=== PATIENT | female | born 1940 | race Caucasian/White ===

== ENCOUNTER 2016-10-12 15:13 | Outpatient (CLI) | payer MEDICARE, OTHER | END 2016-10-12 15:14 | disposition home or self-care (01) | DX: S92.531A Displaced fracture of distal phalanx of right lesser toe(s), initial encounter for closed fracture (principal) ==

== ENCOUNTER 2017-01-19 10:49 | Outpatient (CLI) | payer MEDICARE, OTHER ==
--- NOTE | 2017-01-19 13:45 | XRAY Report ---
THREE-VIEW RIGHT FOOT: 01/19/2017 CLINICAL INDICATION: Evaluate healing right fifth toe fracture, pain at right fifth metatarsal base. FINDINGS: AP, lateral, oblique views of the right foot demonstrate no interval healing of the fractu re of the distal phalanx of the fifth toe. No definite bridging callus is appreciated. There is no evidence of fifth metatarsal fracture. Mild osteoarthritic changes are stable. IMPRESSION: NO EVIDENCE OF NEW FRACTURE. NO EVIDENT BRIDGING CALLUS AT THE FRACTURE SITE IN THE DIS BARB PHALANX OF THE FIFTH TOE. JOB #: [id number] EXT JOB #:[id number]
== END 2017-01-19 10:50 | disposition home or self-care (01) ==
LOC: DI 10:49
PROVIDERS: ATTEND Podiatrist
DX: S92.531D Displaced fracture of distal phalanx of right lesser toe(s), subsequent encounter for fracture with routine healing (principal)

== ENCOUNTER 2017-04-22 11:08 | Emergency (ER) | payer MEDICARE, OTHER ==
--- NOTE | 2017-04-22 12:33 | ED Physician Documentation ---
PD HPI SKIN - Stated complaint Stated Complaint: YELLOWJACKET STINGS, BOTH ARMS, BOTH LEGS - Chief complaint Chief Complaint: Wound - History obtained from History obtained from: Patient - History of Present Illness Timing - onset: Today Timing - details: Abrupt onset, Still present (stund by multiple bees with pain at each, with redness and swelling locally at each sting.) Location: Bodywide Quality / character: Itchy, Burning, Discolored (red), Raised Associated symptoms: No: Fever, Myalgias, Facial swelling, Abd pain, N/V/D Contributing factors: Insect bite /sting (about 6-8, accidentally stepped on ground nest) Similar symptoms before: Has not had sx before Recently seen: Not recently seen Review of Systems Constitutional: reports: Myalgias. denies: Fever, Chills Throat: denies: Oral lesions / sores, Sore throat Cardiac: denies: Chest pain / pressure Respiratory: denies: Dyspnea, Cough, Wheezing GI: denies: Nausea, Vomiting PD PAST MEDICAL HISTORY - Past Medical History Past Medical History: Yes Cardiovascular: Murmur, Other Respiratory: None Neuro: Seizure disorder Endocrine/Autoimmune: HyPOthyroidism GI: None : None HEENT: None Psych: Depression Musculoskeletal: None Derm: Eczema, Other - Past Surgical History Past Surgical History: Yes General: EGD Ortho: Spine surgery /[employer]: section, Tubal ligation Neuro: Craniotomy, Other - Present Medications Home Medications: Ambulatory Orders Medication Instructions Recorded Confirmed Levothyroxine [Synthroid] 100 mcg PO QDAC 01/06/13 04/22/17 Verapamil ER [Calan SA] 180 mg PO DAILY 01/06/13 04/22/17 Ibuprofen [Advil Liqui-Gels] 200 mg PO DAILY PRN 02/28/14 04/22/17 Lactobacillus Acidophilus 1 each PO DAILY 02/28/14 04/22/17 [Probiotic] Loratadine [Claritin] 10 mg PO DAILY 02/28/14 04/22/17 Multivitamin with Minerals 1 tab PO DAILY 02/28/14 04/22/17 [Multiple Vitamin] Dexamethasone [Decadron] 4 mg PO DAILY #5 tablet 04/22/17 HYDROmorphone [Dilaudid] 2 mg PO Q4H PRN #10 tablet 04/22/17 Mirtazapine 7.5 mg PO DAILY 04/22/17 04/22/17 Pregabalin [Lyrica] 12.5 mg PO DAILY 04/22/17 04/22/17 - Allergies Allergies/Adverse Reactions: Allergies Allergy/AdvReac Type Severity Reaction Status Date / Time acetaminophen [From Vicodin] Allergy Severe Respiratory Verified 04/22/17 11:19 benzocaine Allergy Severe Respiratory Verified 04/22/17 11:19 carbamazepine [From Tegretol] Allergy Severe Respiratory Verified 04/22/17 11:19 codeine [Codeine] Allergy Severe Respiratory Verified 04/22/17 11:19 ephedrine [Ephedrine] Allergy Severe Respiratory Verified 04/22/17 11:19 hydrocodone bitartrate * Allergy Severe Respiratory Verified 04/22/17 11:19 [From Vicodin] lamotrigine [From Lamictal] Allergy Severe Respiratory Verified 04/22/17 11:19 oxycodone [Oxycodone] Allergy Severe Respiratory Verified 04/22/17 11:19 Penicillins Allergy Severe Respiratory Verified 04/22/17 11:19 Sulfa (Sulfonamide Allergy Severe Respiratory Verified 04/22/17 11:19 Antibiotics) iodine Allergy Rash Verified 04/22/17 11:19 adhesive AdvReac Itching Verified 04/22/17 11:19 lorazepam [From Ativan] AdvReac Hallucinati Verified 04/22/17 11:19 ons - Social History Does the pt smoke?: No Smoking Status: Never smoker Does the pt drink ETOH?: No Does the pt have substance abuse?: No - Immunizations Immunizations are current?: Yes PD ED PE NORMAL - Vitals Vital signs reviewed: Yes - General General: Alert and oriented X 3, Well developed/nourished, Other (appears uncomfortable due to multiple stings. Normal mentation. ) - HEENT HEENT: Pharynx benign, Other (no oral swelling. normal voice and breathing. ) - Neck Neck: Supple, no meningeal sign, No adenopathy - Cardiac Cardiac: RRR, No murmur - Respiratory Respiratory: Clear bilaterally - Abdomen Abdomen: Soft, Non tender - Derm Derm: Normal color, Warm and dry, Other (multiple sting sites each with about 5- 6 cm surrounding area of redness and swelling. ) - Extremities Extremities: No deformity, No edema, No calf tenderness / cord - Neuro Neuro: Alert and oriented X 3, No motor deficit, No sensory deficit, Normal speech Results - Vitals Vitals: Vital Signs - 24 hr 04/22/17 04/22/17 11:13 13:51 Temperature 36.3 C L 36.8 C Heart Rate 91 64 Respiratory 14 18 Rate Blood Pressure 128/74 131/64 H O2 Saturation 100 99 Oxygen O2 Source Room air PD MEDICAL DECISION MAKING - ED course Complexity details: re-evaluated patient, considered differential (local reactions at stings; no general symptoms. ), d/w patient Departure - Departure Disposition: 01 Home, Self Care Clinical Impression: Local reaction to bee sting Qualifiers: Encounter type: initial encounter Injury intent: undetermined intent Qualified Code(s): T63.444A - Toxic effect of venom of bees, undetermined, initial encounter Condition: Stable Record reviewed to determine appropriate education?: Yes Instructions: ED Bite Sting Insect Local Allergic React Follow-Up: Roslyn Figueroa MD [Primary Care Provider] - Prescriptions: Dexamethasone [Decadron] 4 mg PO DAILY #5 tablet HYDROmorphone [Dilaudid] 2 mg PO Q4H PRN #10 tablet PRN Reason: Pain Comments: Drink lots of fluids today. Stay cool as warmth/exerted will increase symptoms today. Ice or cool towels to sting areas can help. Ibuprofen for pains. Add Dilaudid if needed. Benadryl 1-2 every 6 hours if needed for itching. Decadron steroid daily for 3-5 days as bee sting reactions can linger effect for a few days. Discharge Date/Time: 04/22/17 13:52
[2017-04-22] MEDS ORDERED: DEXAMETHASONE 10 MG/ML VIAL PO STA (12:47)
[2017-04-22] MEDS ORDERED: diphenhydrAMINE 25 MG CAPSULE PO STA (12:47)
[2017-04-22] MEDS ORDERED: HYDROmorphone 1 MG/ML SYRINGE IM STA (12:47)
[2017-04-22] MEDS ORDERED: KETOROLAC 60 MG/2 ML VIAL IM STA (12:47)
[2017-04-22] MEDS ORDERED: KETOROLAC 30 MG/ML VIAL ONE (12:59)
[2017-04-22] MEDS ORDERED: diphenhydrAMINE 25 MG CAPSULE PO ONE (12:59)
[2017-04-22] MEDS ORDERED: HYDROmorphone 1 MG/ML SYRINGE ONE (12:59)
[2017-04-22] MEDS ORDERED: CHERRY SYRUP 10 ML UDC PO ONE (13:00)
[2017-04-22] MEDS ORDERED: DEXAMETHASONE 10 MG/ML VIAL ONE (13:00)
[2017-04-22 13:52] VITALS: BP 131/64
== END 2017-04-22 13:52 | disposition home or self-care (01) ==
LOC: ED 11:08
DX: T63.441A Toxic effect of venom of bees, accidental (unintentional), initial encounter (principal)
CPT/HCPCS: 96372; 99283; A9270; J1170

== ENCOUNTER 2017-05-04 13:30 | Outpatient (CLI) | payer MEDICARE, OTHER | END 2017-05-04 13:31 | disposition home or self-care (01) | LOC: LAB.R 13:30 | PROVIDERS: ATTEND Physician Assistant Medical | DX: N39.0 Urinary tract infection, site not specified (principal) | CPT/HCPCS: 87086 ==

== ENCOUNTER 2017-05-31 13:11 | Outpatient (CLI) | payer MEDICARE, OTHER ==
[2017-05-31 12:40] LABS: BASOPHILS # (AUTO) 0.1 10^3/uL (0.0-0.1); BASOPHILS % (AUTO) 1.3 %; EOSINOPHILS # (AUTO) 0.2 10^3/uL (0.0-0.7); EOSINOPHILS % (AUTO) 4.4 %; HGB - HEMOGLOBIN 13.7 g/dL (12.0-16.0); LYMPHOCYTES # (AUTO) 0.9 10^3/uL (1.5-3.5); LYMPHOCYTES % (AUTO) 20.1 %; MEAN CORPUSCULAR HEMOGLOBIN 28.7 pg (27.0-31.0); MEAN CORPUSCULAR HGB CONC 33.5 g/dL (32.0-36.0); MEAN CORPUSCULAR VOLUME 85.8 fL (81.0-99.0); MONOCYTES # (AUTO) 0.4 10^3/uL (0.0-1.0); MONOCYTES % (AUTO) 8.1 %; NEUTROPHILS # (AUTO) 3.1 10^3/uL (1.5-6.6); NEUTROPHILS % (AUTO) 66.1 %; NUCLEATED RED BLOOD CELLS AUTO 0.1 /100WBC; RED BLOOD COUNT 4.77 10^6/uL (4.20-5.40); RED CELL DISTRIBUTION WIDTH 14.2 % (12.0-15.0); UNCORRECTED WHITE BLOOD COUNT 4.7 x10^3/uL; WHITE BLOOD COUNT 4.7 x10^3/uL (4.8-10.8)
[2017-05-31 13:06] LABS: THYROID STIMULATING HORMONE < 0.08 uIU/mL (0.34-5.60)
[2017-05-31 13:16] LABS: ALBUMIN/GLOBULIN RATIO 1.6 (1.0-2.2); BILIRUBIN,TOTAL 0.7 mg/dL (0.2-1.0); BUN - BLOOD UREA NITROGEN 11 mg/dL (6-20); CALCIUM 8.9 mg/dL (8.5-10.3); CARBON DIOXIDE - CO2 25 mmol/L (21-32); CHLORIDE 105 mmol/L (101-111); CHOL/HDL RATIO 3.9 (<4.4); CHOLESTEROL 194 mg/dL; CREATININE 0.9 mg/dL (0.4-1.0); GFR - MDRD 61 (>89); GLUCOSE 93 mg/dL (70-100); HDL CHOLESTEROL 50 mg/dL; LDL/HDL RATIO 2.6 (<4.4); SODIUM 137 mmol/L (135-145); TOTAL PROTEIN 6.9 g/dL (6.7-8.2); TRIGLYCERIDES 76 mg/dL; VLDL CHOLESTEROL 15 mg/dL
== END 2017-05-31 13:12 | disposition home or self-care (01) ==
LOC: LAB.WCP 13:11
PROVIDERS: ATTEND Family Medicine
DX: I49.9 Cardiac arrhythmia, unspecified (principal); K58.9 Irritable bowel syndrome, unspecified; E03.9 Hypothyroidism, unspecified
CPT/HCPCS: 36415; 80053; 80061; 84439; 84443; 85025

== ENCOUNTER 2017-07-11 20:47 | Outpatient (CLI) | payer MEDICARE, OTHER ==
[2017-07-11 19:34] LABS: THYROID STIMULATING HORMONE 6.68 uIU/mL (0.34-5.60)
== END 2017-07-11 20:48 | disposition home or self-care (01) ==
LOC: LAB.WCP 20:47
PROVIDERS: ATTEND Family Medicine
DX: E03.9 Hypothyroidism, unspecified (principal)
CPT/HCPCS: 36415; 84439; 84443

== ENCOUNTER 2017-07-18 14:00 | Outpatient (CLI) | payer MEDICARE, OTHER | END 2017-07-18 14:01 | disposition home or self-care (01) | LOC: LAB.R 14:00 | PROVIDERS: ATTEND Family Medicine | DX: N39.0 Urinary tract infection, site not specified (principal) | CPT/HCPCS: 87077; 87086 ==

== ENCOUNTER 2017-08-11 09:57 | Outpatient (CLI) | payer MEDICARE, OTHER ==
[2017-08-11 13:29] LABS: THYROID STIMULATING HORMONE 1.5 uIU/mL (0.34-5.60)
[2017-08-11 13:31] LABS: FREE T4 (FREE THYROXINE) 0.81 ng/dL (0.58-1.64)
== END 2017-08-11 09:58 | disposition home or self-care (01) ==
LOC: LAB.WCP 09:57
PROVIDERS: ATTEND Family Medicine
DX: E03.9 Hypothyroidism, unspecified (principal)
CPT/HCPCS: 36415; 84439; 84443; 84481

== ENCOUNTER 2017-11-10 15:15 | Outpatient (CLI) | payer MEDICARE, OTHER | END 2017-11-10 15:16 | disposition home or self-care (01) | LOC: LAB.R 15:15 | PROVIDERS: ATTEND Family Medicine | DX: N39.0 Urinary tract infection, site not specified (principal) | CPT/HCPCS: 87086 ==

== ENCOUNTER 2017-11-29 09:33 | Outpatient (CLI) | payer MEDICARE, OTHER ==
--- NOTE | 2017-11-30 15:35 | Mammography Report ---
DIGITAL SCREENING MAMMOGRAM: 11/29/2017 CLINICAL INDICATION: A 77-year-old with family history of breast cancer, history of benign biopsy for screening. COMPARISON: 11/2015, 11/2014, 11/2013, 11/2011, 11/2010, 11/2009. TECHNIQUE: Routine CC and MLO projections were obtained of the breasts. FINDINGS: The breasts demonstrate scattered fibroglandular densities bilaterally. A few punctate, typically benign calcifications are present. No suspicious masses, clustered microcalcifications, or regions of architectural distortion are identified. Post-biopsy changes in the right breast are stable. IMPRESSION: BENIGN FINDINGS. RECOMMENDATION: Routine annual screening unless otherwise clinically indicated. BIRADS CATEGORY 2 - BENIGN FINDINGS. STANDARD QUALIFYING STATEMENTS: 1. This examination was reviewed with the aid of Computer-Aided Detection (CAD). 2. A negative or benign imaging report should not delay biopsy if clinically suspicious findings are present. Consider surgical consultation if warranted. More than 5% of cancers are not identified by imaging. 3. Dense breasts may obscure an underlying neoplasm. TD: 11/30/2017 15:35
== END 2017-11-29 09:34 | disposition home or self-care (01) ==
LOC: DI 09:33
PROVIDERS: ATTEND Family Medicine
DX: Z12.31 Encounter for screening mammogram for malignant neoplasm of breast (principal); Z80.3 Family history of malignant neoplasm of breast
CPT/HCPCS: 77067

== ENCOUNTER 2017-11-29 09:34 | Outpatient (CLI) | payer MEDICARE, OTHER ==
--- NOTE | 2017-11-30 15:37 | DEXA Report ---
DEXA SCAN: 11/29/2017 CLINICAL INDICATION: Postmenopausal osteoporosis. TECHNIQUE: Dual energy x-ray absorptiometry (DXA) was performed on a Balzo system. Regions measured are the AP spine, femoral neck, and, if needed, forearm. COMPARISON: None. In accordance with the International Society for Clinical Densitometry (ISCD) guidelines, data from previous exams may be reanalyzed using current recommendations and techniques. This is done to allow a more accurate basis for comparison with the current study. FINDINGS Data for the lumbar spine is as follows: REGION BMD (g/cm/cm) T-SCORE Z-SCORE L1 0.827 -2.5 -0.8 L2 0.871 -2.7 -1.0 L3 1.045 -1.3 0.4 L4 1.057 -1.2 0.5 L1-L4 0.967 -1.8 0.0 NOTE: All evaluable vertebrae are used for classification. The data for the hip is as follows: REGION BMD (g/cm/cm) T-SCORE Z-SCORE Neck 0.706 -2.4 -0.5 TOTAL 0.671 -2.7 -1.0 NOTE: The femoral neck or total proximal femur, whichever is lowest, is used for classification. IMPRESSION WHO CLASSIFICATION BASED ON THE INTERNATIONAL REFERENCE STANDARD IS OSTEOPOROSIS. FRACTURE RISK IS HIGH. RECOMMENDATION: Patients with diagnosis of osteoporosis or osteopenia should have regular bone mineral density assessment. For those eligible for Medicare, routine testing is allowed once every 2 years. Testing frequency can be increased for patients who have rapidly progressing disease or for those who are receiving medical therapy to restore bone mass. COMMENT World Health Organization (WHO) definitions for osteoporosis and osteopenia: NORMAL BMD: T-score at 1.0 or higher, fracture risk is low. OSTEOPENIA BMD: T-score between 1.0 and -2.5, fracture risk is increased. OSTEOPOROSIS BMD: T-score at 2.5 or lower, fracture risk high. National Osteoporosis Foundation recommends: 1. Obtain adequate dietary calcium (at least 1200 mg per day) and vitamin D (400 -800 international units per day). 2. Participate, as appropriate, in regular weightbearing and muscle- strengthening exercise. 3. Avoid tobacco use and reduce alcohol and caffeine intake. 4. For more detailed information see the website at www.NOF.org. TD: 11/29/2017 13:52 MTDD
== END 2017-11-29 09:35 | disposition home or self-care (01) ==
LOC: DI 09:34
PROVIDERS: ATTEND Family Medicine
DX: M81.0 Age-related osteoporosis without current pathological fracture (principal)
CPT/HCPCS: 77080

== ENCOUNTER 2017-12-27 12:57 | Outpatient (CLI) | payer MEDICARE, OTHER ==
--- NOTE | 2017-12-27 15:09 | CT Report ---
CT CHEST WITHOUT CONTRAST: 12/27/2017 CLINICAL INDICATION: Atypical chest pain. TECHNIQUE: Axial CT images of the chest were obtained without intravenous contrast. COMPARISON: No previous CT is available for comparison. FINDINGS: The heart and great vessels demonstrate atherosclerotic calcifications. No hilar or mediastinal lymphadenopathy is present. There is a noncalcified 4 mm subpleural nodule in the posterolateral left lower lobe. No effusion or pneumothorax is present. Osseous structures demonstrate degenerative changes. Limited evaluation of upper abdominal structures demonstrates normal adrenal glands. IMPRESSION: 4 MM SUBPLEURAL LEFT LOWER LOBE NODULE. NO FURTHER WORKUP IS RECOMMENDED IN THIS LOW RISK PATIENT BY [employer] GUID[employer]INES. CT DOSE REDUCTION STATEMENT In accordance with CT protocol optimization, one or more of the following dose reduction techniques were utilized for this exam: automated exposure control, adjustment of mA and/or KV based on patient size, or use of iterative reconstructive technique. TD: 12/27/2017 15:01
--- NOTE | 2017-12-28 14:28 | CT Preliminary Report ---
Exam: CT CERVICAL SPINE W/O Impression: 1. Changes of previous anterior cervical diskectomy and fusion are demonstrated. Again seen is solid interbody fusion at C5-C6. Changes of ACDF at C4-C5 are new when compared to previous C-spine CT 03/15. However, there does appear to be at least early bony bridging across the C4-C5 disk. 2. Degenerative changes are seen throughout the cervical spine as documented in detail above. 3. There is potentially significant spinal stenosis at C3-C4. In addition, there is significant appea ring spinal stenosis, parasagittally on the right at C4-C5. The possibility of cord impingement at th e C3-C4 and C4-C5 levels cannot be excluded. Consider further assessment with MRI or CT myelography a s clinically warranted. 3. Multilevel bony foraminal stenoses as described. With respect to the right-sided neural foramina t here are relatively severe stenoses at C3-C4 and C4-C5. There could potentially be compromise of exit ing right C4 and/or C5 nerve roots. Recommend clinical correlation for right C4 and/or C5 radiculopat hy. With respect to the left-sided neural foramina there. The relatively severe stenoses at C3-C4, C4-C5 and C6-C7. There could potentially be compromise of exiting left C4, C5 and more C7 nerve roots. Clin ical correlation is required. 4. Noted is a calcification in the retro-dental soft tissues. In addition, there appears to be chondr ocalcinosis at the sternoclavicular joints bilaterally. 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 SITE ID: [id number]
--- NOTE | 2017-12-28 15:07 | CT Report ---
CT CERVICAL SPINE WITHOUT CONTRAST INDICATION: 77-year-old female with neck pain. TECHNIQUE: Helical scan with reconstruction into 2 mm axial images. In addition, sagittal and coronal re-formati ons have been generated. This examination was performed using a bone algorithm. Images are available in bone and soft tissue w indows. In accordance with CT protocol optimization, one or more of the following dose reduction techniques w ere utilized for this exam: automated exposure control, adjustment of mA and/or KV based on patient s ize, or use of iterative reconstructive technique. COMPARISON: 04/03/2009. FINDINGS: Again demonstrated is solid bony union at C5-C6, consistent with the sequela of a remote surgical fus ion. There are changes of anterior discectomy and fusion at C4-C5 that are new when compared to the e xamination from 04/03/2009. However, there does appear to be at least early bony bridging across the disk space (see image 43 of series #8 and image 33 of series #7). The metal fusion hardware appears i ntact. No lucency is identified, surrounding either corpus screw to suggest the possibility of loosen ing or infection. There is a reversal of the normal cervical lordosis, stretching between C2 and C4. In addition, there is minimal anterolisthesis of C2 on C3 and retrolisthesis of C3 on C4, unchanged. Alignment is other holt unremarkable. Again demonstrated are changes of fairly advanced degenerative disk disease with moderate to severe d isk space narrowing at C3-C4, similar to the previous study. In addition, degenerative changes are ag ain seen at the C6-C7 disk with mild to moderate disk space narrowing and anterior and posterior oste ophyte formation, similar to the previous study. The C2-C3 and C7-T1 disk space heights remain preser florencia. Regional bony structures are intact. No lytic or destructive bone lesion has developed. Axial images: C2-C3: No focal disk herniation. Mid sagittal canal diameter is on the order of about 10 mm. No signi ficant-appearing spinal stenosis. Uncovertebral hypertrophy gives rise to mild left foraminal stenosi s. C3-C4: Posterior spondylotic bar indenting the ventral aspect of the thecal sac and reducing the mid sagittal canal diameter to about 7.5 mm. There is little if any CSF surrounding the spinal cord at th e disk level. Uncovertebral hypertrophy gives rise to foraminal narrowing that appears to be moderate to severe bilaterally. This appears to have progressed since the previous examination. C4-C5: Residual, posterior osteophyte on the right gives rise to significant-appearing spinal stenosi s, paracentrally to the right. The possibility of right side cord impingement cannot be excluded. Lar ge uncovertebral osteophytes give rise to very severe foraminal narrowing bilaterally, essentially un changed. C5-C6: No significant spinal stenosis. No significant foraminal narrowing. C6 C7: Posterior central disk osteophyte complex projecting into the spinal canal for about 4 mm. Mas s effect on the ventral aspect of the thecal sac. The mid sagittal canal diameter is reduced to about 8.3 mm. Uncovertebral hypertrophy gives rise to foraminal narrowing that appears to be moderate on t he right and moderate to severe on the left. C7-T1: No obvious disk herniation. No spinal stenosis or significant-appearing foraminal narrowing. T1-T2 and T2-T3: No obvious disk herniation or spinal stenosis. Left-sided degenerative facet arthros is at T2-T3 with associated bony hypertrophy gives rise to mild left T2-T3 foraminal stenosis. For imaging of included upper chest please refer to report for recent chest CT from 12/27/2017. Postsurgical changes are seen intracranially. There is evidence of a previous right-sided craniotomy. An aneurysm clip is identified in the medial aspect of the right middle cranial fossa, consistent wi th the sequela of prior surgical clipping of a right-sided, anterior circulation aneurysm. IMPRESSION: 1. Changes of previous anterior cervical discectomy and fusion are demonstrated. Again seen, is solid interbody fusion at C5-C6. Changes of ACDF at C4-C5 are new when compared to previous C-spine CT . However, there does appear to be at least early bony bridging across the C4-C5 disk. 2. Degenerative changes are seen throughout the cervical spine as documented in detail above. 3. There is potentially significant spinal stenosis at C3-C4. In addition, there is significant-appea ring spinal stenosis, parasagittally on the right at C4-C5. The possibility of cord impingement of th e C3-C4 and C4-C5 levels cannot be excluded. Consider further assessment with MRI or CT myelography a s clinically warranted. 4. Multilevel bony foraminal stenoses as described. With respect to the right-sided neural foramina, there are relatively severe stenoses at C3-C4 and C4-C5. There could potentially be compromise of exi ting right C4 and/or C5 nerve roots. Recommend clinical correlation for right C4 and/or C5 radiculopa thy. With respect to the left-sided neural foramina, there appear to be relatively severe stenoses at C3- C4, C4-C5 and C6-C7. There could potentially be compromise of exiting left C4, C5 and/or C7 nerve ann ts. Clinical correlation is required. 5. Noted is a calcification in the retro-dental soft tissues. In addition, there appears to be chondr ocalcinosis at the sternoclavicular joints bilaterally. 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 Referring Provider Line: [phone] SITE ID: [id number]
== END 2017-12-27 12:58 | disposition home or self-care (01) ==
LOC: DI 12:57
PROVIDERS: ATTEND Family Medicine
DX: R91.1 Solitary pulmonary nodule (principal); M50.30 Other cervical disc degeneration, unspecified cervical region; M48.02 Spinal stenosis, cervical region
CPT/HCPCS: 71250; 72125

== ENCOUNTER 2018-03-05 13:18 | Outpatient (CLI) | payer MEDICARE, OTHER ==
--- NOTE | 2018-03-05 18:40 | XRAY Report ---
Procedure Date: 03/05/2018 Accession Number: [id number] / [id number] Procedure: XR - Cervical Spine w/Flex/Ext CPT Code: FULL RESULT: EXAM: Cervical Spine w/Flex/Ext DATE: 03/05/2018 1:43 PM CLINICAL HISTORY: Cervical stenosis COMPARISON: CT cervical spine 12/27/2017. TECHNIQUE: 4 views. FINDINGS: Relative straightening of the normal cervical curvature. The patient is status post anterior cervical disc fusion with hardware spanning the C4-5 interval and osseous fusion of C5 on C6. There are expected degenerative changes with osteophytosis at C6-7. Bones: The cervical vertebral bodies and posterior elements are well visualized from the skull base through C7-T1. No fractures or bone lesions. Disks: Disc space narrowing at C3-4 and C6-7. Facets: Mild multilevel degenerative changes better characterized on the previous CT. Soft Tissues: Normal. No prevertebral soft tissue swelling. The visualized lung apices are clear. Apparent motion at C7-T1 on flexion/extension views is felt to be at least partially due to technique and within normal limits. IMPRESSION: Spinal fusion hardware in unchanged configuration compared to the CT in December when accounting for differences in technique. RADIA
== END 2018-03-05 13:19 | disposition home or self-care (01) ==
LOC: DI 13:18
PROVIDERS: ATTEND Physician Assistant
DX: M48.02 Spinal stenosis, cervical region (principal)
CPT/HCPCS: 72052

== ENCOUNTER 2018-04-21 08:00 | Outpatient (CLI) | payer MEDICARE, OTHER ==
[2018-04-21 11:01] LABS: H. PYLORIS ANTIGEN STL NEGATIVE (Negative)
== END 2018-04-21 08:01 | disposition home or self-care (01) ==
LOC: LAB.R 08:00
PROVIDERS: ATTEND Family Medicine
DX: R19.7 Diarrhea, unspecified (principal)
CPT/HCPCS: 81599; 82274; 83630; 87045; 87046; 87177; 87209; 87329; 87338; 87493

== ENCOUNTER 2018-07-19 08:41 | Outpatient (CLI) | payer MEDICARE, OTHER ==
--- NOTE | 2018-07-19 11:07 | CT Report ---
Reason: SINUSITIS Procedure Date: 07/19/2018 Accession Number: [id number] / [id number] Procedure: CT - Sinuses CPT Code: FULL RESULT: EXAM: CT SINUS EXAM DATE: 07/19/2018 09:05 AM. HISTORY: Sinusitis. COMPARISONS: CT HEAD W/ CONT 11/25/2012 6:56 PM. TECHNIQUE: Routine multi-axial CT imaging performed through the sinuses. Iodinated IV contrast: None. Reconstructions: Multiplanar reformats. In accordance with CT protocol optimization, one or more of the following dose reduction techniques were utilized for this exam: automated exposure control, adjustment of mA and/or KV based on patient size, or use of iterative reconstructive technique. FINDINGS: RIGHT Frontal: Normal. Ethmoid: Normal. Maxillary: Minimal mucosal thickening. Sphenoid: Normal. Drainage Pathways: The frontal recess, ostiomeatal complex and sphenoethmoidal recess are patent and normal. LEFT Frontal: Normal. Ethmoid: Normal. Maxillary: Normal. Sphenoid: Normal. Drainage Pathways: The frontal recess, ostiomeatal complex and sphenoethmoidal recess are patent and normal. Nasal Cavity: Normal. No mass or significant anatomic abnormality evident. Osseous Structures: The patient is status post right frontal approach craniotomy. Orbits: Unremarkable. Other: An aneurysm clip is seen near the carotid summit on the right. IMPRESSION: Essentially normal CT sinus with minimal mucosal thickening. RADIA
== END 2018-07-19 08:42 | disposition home or self-care (01) ==
LOC: DI 08:41
PROVIDERS: ATTEND Family Medicine
DX: J32.8 Other chronic sinusitis (principal)
CPT/HCPCS: 70486

== ENCOUNTER 2018-07-28 13:41 | Outpatient (CLI) | payer MEDICARE, OTHER ==
--- NOTE | 2018-07-28 23:04 | Ultrasound Report ---
Reason: PELVIC PAIN Procedure Date: 07/28/2018 Accession Number: [id number] / [id number] Procedure: US - Pelvic w/Transvaginal CPT Code: FULL RESULT: EXAM: PELVIC ULTRASOUND EXAM DATE: 07/28/2018 02:38 PM. CLINICAL HISTORY: PELVIC PAIN. COMPARISON: None. TECHNIQUE: Realtime transabdominal pelvic scan performed to identify the uterus and adnexa and as an overview of other pelvic structures, followed by transvaginal scan to provide greater detail of the uterus and adnexa, with static image documentation. FINDINGS: Uterus: 4.6 x 2.3 x 3.6 cm, volume 20 cc. Anteverted position. Normal overall size and echotexture. Masses: None. Endometrium: 2 mm. Normal. Cervix: Unremarkable. Right Ovary: 1.9 x 1.5 x 0.9 cm, volume 1.3 cc. Normal echotexture and blood flow. Left Ovary: Not seen. No suspicious adnexal masses. Free Fluid: None. Other: None. IMPRESSION: 1. Uterus and endometrium are within normal limits. 2. The right ovary is normal in size, echotexture, and vascularity. 3. The left ovary is not seen. 4. No suspicious adnexal masses. RADIA
== END 2018-07-28 13:42 | disposition home or self-care (01) ==
LOC: DI 13:41
PROVIDERS: ATTEND Family Medicine
DX: R10.2 Pelvic and perineal pain (principal)
CPT/HCPCS: 76830; 76856

== ENCOUNTER 2018-07-30 10:36 | Outpatient (CLI) | payer MEDICARE, OTHER | END 2018-07-30 23:59 | disposition home or self-care (01) | LOC: LAB.WCP 10:36 | PROVIDERS: ATTEND Family Medicine | DX: R19.7 Diarrhea, unspecified (principal); E03.9 Hypothyroidism, unspecified | CPT/HCPCS: 36415; 83516; 84443 ==

== ENCOUNTER 2018-08-06 08:00 | Outpatient (CLI) | payer MEDICARE, OTHER ==
[2018-08-06 18:08] LABS: BILIRUBIN,URINE NEGATIVE (NEGATIVE); GLUCOSE, URINE (UA) NEGATIVE (NEGATIVE); KETONES,URINE (UA) NEGATIVE (NEGATIVE); LEUKOCYTE ESTERASE, URINE NEGATIVE (NEGATIVE); NITRITE,URINE POSITIVE (NEGATIVE); OCCULT BLOOD,URINE NEGATIVE (NEGATIVE); PH,URINE 5.5 PH (5.0-7.5); PROTEIN,URINE TRACE mg/dL (NEGATIVE); UROBILINOGEN,URINE 0.2 (NORMAL) E.U./dL (NORMAL)
[2018-08-06 18:16] LABS: CLARITY,URINE CLOUDY (CLEAR)
[2018-08-06 18:18] LABS: AMORPHOUS SEDIMENT,UR Marked /LPF; BACTERIA,URINE None Seen /HPF (None Seen); RBC,URINE None Seen /HPF (0-5); SQUAMOUS EPITHELIAL CELL,UR NONE SEEN (<= Few)
[2018-08-06 18:19] LABS: CRYSTALS,URINE 11-25 Ca Oxalate /LPF
== END 2018-08-06 23:59 | disposition home or self-care (01) ==
LOC: LAB.R 08:00
PROVIDERS: ATTEND Family Medicine
DX: R30.0 Dysuria (principal)
CPT/HCPCS: 81001; 81003; 87086

== ENCOUNTER 2018-08-13 09:00 | Outpatient (CLI) | payer MEDICARE, OTHER | END 2018-08-13 09:01 | disposition home or self-care (01) | LOC: LAB.R 09:00 | PROVIDERS: ATTEND Family Medicine | DX: N39.0 Urinary tract infection, site not specified (principal) | CPT/HCPCS: 87086 ==

== ENCOUNTER 2018-09-01 08:43 | Outpatient (CLI) | payer MEDICARE, OTHER ==
--- NOTE | 2018-09-01 16:07 | CT Report ---
Reason: HEMATURIA, PELVIC PAIN, RIGHT (KIDNEY STONES) Procedure Date: 09/01/2018 Accession Number: [id number] / [id number] Procedure: CT - Abdomen/Pelvis W/O CPT Code: FULL RESULT: EXAM: CT ABDOMEN AND PELVIS (CT KUB) EXAM DATE: 09/01/2018 09:02 AM. CLINICAL HISTORY: Hematuria, pelvic pain, right (kidney stones). COMPARISONS: Abdomen/pelvis angiogram 09/08/2014 2:40 PM. TECHNIQUE: Routine axial helical CT imaging was performed through the abdomen and pelvis without IV contrast. Reconstructions: Coronal and sagittal. In accordance with CT protocol optimization, one or more of the following dose reduction techniques were utilized for this exam: automated exposure control, adjustment of mA and/or KV based on patient size, or use of iterative reconstructive technique. FINDINGS: Lung Bases: Unremarkable. Right Kidney/Ureter: No stones, hydronephrosis, or hydroureter. No perinephric fat stranding. Left Kidney/Ureter: Interval enlargement of a 1.9 cm diameter partially exophytic low-attenuation lesion in the posterior left upper kidney. This was previously a 1.3 cm simple appearing cyst on the prior. No hydronephrosis. No calcified renal or ureteral stone. Other Solid Organs: Noncontrast images of the solid organs are grossly unremarkable. Gallbladder/Bile Ducts: Unremarkable. Peritoneal Cavity: No free fluid, free air or kal adenopathy. Bowel is grossly unremarkable. Pelvic Organs: No bladder stones or wall thickening. Noncontrast images of the visualized pelvic organs are unremarkable. Vasculature: 1.3 cm rim calcified splenic artery aneurysm, unchanged from prior. Moderate aortic and splenic artery atherosclerosis. Other: Bilateral calcified hamstring tendinopathy. IMPRESSION: 1. No renal or ureteral calculi or hydronephrosis. 2. Previous 1.3 cm posterior left upper renal cyst has enlarged with a 1.9 cm low-attenuation cystic lesion noted on noncontrast CT on the current study. 3. Stable splenic artery aneurysm. RADIA
== END 2018-09-01 08:44 | disposition home or self-care (01) ==
LOC: DI 08:43
PROVIDERS: ATTEND Family Medicine
DX: Q61.9 Cystic kidney disease, unspecified (principal); I72.8 Aneurysm of other specified arteries; R31.9 Hematuria, unspecified; R10.2 Pelvic and perineal pain
CPT/HCPCS: 74176

== ENCOUNTER 2018-09-16 14:42 | Outpatient (CLI) | payer MEDICARE, OTHER ==
--- NOTE | 2018-09-16 15:53 | Ultrasound Report ---
Reason: RENAL CYST,LEFT Procedure Date: 09/16/2018 Accession Number: [id number] / [id number] Procedure: US - Retroperitoneal CPT Code: FULL RESULT: EXAM: RENAL ULTRASOUND EXAM DATE: 09/16/2018 02:57 PM. CLINICAL HISTORY: RENAL CYST,LEFT. COMPARISON: ABDOMEN/PELVIS W/O 09/01/2018 8:52 AM. TECHNIQUE: Real-time scanning was performed with static images obtained. FINDINGS: Right Kidney: 9.1 x 4.4 x 4.5 cm. Normal echotexture with no stones, contour-deforming masses, or hydronephrosis. Left Kidney: 9.3 x 4.4 x 5.6 cm. No hydronephrosis or nephrolithiasis. There is a simple appearing cyst in the upper pole measuring 1.5 x 2.5 x 1.6 cm. This cyst is anechoic with a thin, imperceptible wall and posterior acoustic through transmission. No internal vascularity or septations. Bladder: Bilateral jets seen. The prevoid bladder volume was 6.7 cc. The postvoid bladder volume was 0.4 cc. Other: None. IMPRESSION: Simple left renal cyst, as described. No evidence of obstructive uropathy. RADIA
== END 2018-09-16 14:43 | disposition home or self-care (01) ==
LOC: DI 14:42
PROVIDERS: ATTEND Family Medicine
DX: N28.1 Cyst of kidney, acquired (principal)
CPT/HCPCS: 76770

== ENCOUNTER 2018-10-31 11:25 | Outpatient (CLI) | payer MEDICARE, OTHER ==
[2018-10-31 11:48] LABS: CALCIUM 9.2 mg/dL (8.5-10.3); CREATININE 0.8 mg/dL (0.4-1.0)
[2018-10-31] MEDS ORDERED: IOPAMIDOL-300 100 ML VIAL ONE (12:00)
[2018-10-31] MEDS ORDERED: IOPAMIDOL-300 100 ML VIAL IVP ONE (12:18)
--- NOTE | 2018-10-31 16:31 | CT Report ---
Reason: HEMATURIA, UNSPECIFIED Procedure Date: 10/31/2018 Accession Number: [id number] / [id number] Procedure: CT - IVP CPT Code: FULL RESULT: EXAM: CT ABDOMEN AND PELVIS WITHOUT AND WITH CONTRAST (CT IVP) EXAM DATE: 10/31/2018 12:39 PM. CLINICAL HISTORY: Hematuria, unspecified. COMPARISONS: ABDOMEN/PELVIS W/O 09/01/2018 8:52 AM ABDOMEN/PELVIS ANGIO 09/08/2014 2:40 PM. TECHNIQUE: Routine helical imaging was performed through the kidneys, ureters and bladder in the precontrast, postcontrast and delayed phase. IV Contrast: ISOVUE 300 100mL. Reconstructions: Coronal and sagittal. In accordance with CT protocol optimization, one or more of the following dose reduction techniques were utilized for this exam: automated exposure control, adjustment of mA and/or KV based on patient size, or use of iterative reconstructive technique. FINDINGS: Lung Bases: Unremarkable. Liver: Normal. No masses. Gallbladder/Bile Ducts: Unremarkable. Spleen: Normal. 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 Pancreas: Normal. Adrenal Glands: Normal. Kidneys/Bladder: Right Kidney/Ureter: No renal or ureteral stones. No hydronephrosis or hydroureter. No masses. Left Kidney/Ureter: No renal or ureteral stones. No hydronephrosis or hydroureter. No masses. 2.5 cm water density simple appearing cyst of the upper pole kidney. Subcentimeter hypodensity of the lower pole, too small to characterize but unchanged since 2014 likely additional cyst. Bladder: No stones. No wall thickening or mass. Peritoneal Cavity/Bowel: Normal. No free fluid, free air or adenopathy. No masses or acute inflammatory process. Pelvic Organs: Visualized pelvic organs are unremarkable. Vasculature: Stable 1.5 cm splenic artery aneurysm. Bones: No significant abnormality. Other: None. IMPRESSION: 1. Normal CT IVP. No urinary tract masses, stones or obstruction. No etiology for hematuria identified. 2. 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 3. 2.5 cm simple cyst left upper pole kidney. Stable subcentimeter lower pole hypodensity, likely additional cyst. RADIA
== END 2018-10-31 11:26 | disposition home or self-care (01) ==
LOC: DI 11:25
PROVIDERS: ATTEND Specialist
DX: R31.9 Hematuria, unspecified (principal); R39.9 Unspecified symptoms and signs involving the genitourinary system; I72.8 Aneurysm of other specified arteries; N28.1 Cyst of kidney, acquired
CPT/HCPCS: 36415; 74178; 80048; Q9967

== ENCOUNTER 2019-01-25 08:40 | Outpatient (CLI) | payer MEDICARE, OTHER ==
--- NOTE | 2019-01-25 10:02 | XRAY Report ---
Reason: wrist pain,right Procedure Date: 01/25/2019 Accession Number: [id number] / [id number] Procedure: XRN - Wrist 3 View RT CPT Code: FULL RESULT: EXAM: RIGHT WRIST RADIOGRAPHY EXAM DATE: 01/25/2019 09:05 AM. CLINICAL HISTORY: Wrist pain,right. COMPARISON: FINGER(S) RT 07/31/2017 1:47 PM. TECHNIQUE: 3 views. FINDINGS: Bones: Normal. No fractures or bone lesions. Joints: Normal. No subluxations. Soft Tissues: Normal. No soft tissue swelling. IMPRESSION: Normal wrist radiography. RADIA
== END 2019-01-25 08:41 | disposition home or self-care (01) ==
LOC: DI.N 08:40
PROVIDERS: ATTEND Family Medicine
DX: M25.531 Pain in right wrist (principal)

== ENCOUNTER 2019-01-29 15:51 | Outpatient (CLI) | payer MEDICARE, OTHER ==
--- NOTE | 2019-01-29 19:08 | Ultrasound Report ---
Reason: SWELLING OF RIGHT ARM, WRIST PAIN,RIGHT Procedure Date: 01/29/2019 Accession Number: [id number] / [id number] Procedure: US - Duplex Upr Ext Arterial RT CPT Code: FULL RESULT: EXAM: RIGHT UPPER EXTREMITY ARTERIAL DOPPLER ULTRASOUND EXAM DATE: 01/29/2019 04:41 PM. CLINICAL HISTORY: Swelling of right arm, wrist pain, right. COMPARISON: None. TECHNIQUE: Real-time sonographic vascular imaging was performed by the radiology technologist, utilizing color-flow, Doppler flow, and spectral analysis. Multiple registration representative static images were saved for review. FINDINGS: Right Upper Extremity Velocities: Innominate: 69 cm/s. Subclavian prox: 133 cm/s. Subclavian mid: 72 cm/s. Subclavian distal: 57 cm/s. Axillary: 62 cm/s. Brachial prox: 75 cm/s. Brachial dist: 84 cm/s. Radial prox: 42 cm/s. Radial distal: 56 cm/s. Ulnar prox: 44 cm/s Ulnar dist: 47 cm/s. IMPRESSION: No evidence for hemodynamically significant stenosis or occlusion. RAD[facility]
--- NOTE | 2019-01-29 19:13 | Ultrasound Report ---
Reason: SWELLING OF RIGHT ARM, WRIST PAIN,RIGHT Procedure Date: 01/29/2019 Accession Number: [id number] / [id number] Procedure: US - Duplex Ext Veins Right CPT Code: FULL RESULT: EXAM: RIGHT UPPER EXTREMITY VENOUS ULTRASOUND EXAM DATE: 01/29/2019 05:11 PM. CLINICAL HISTORY: SWELLING OF RIGHT ARM, WRIST PAIN, RIGHT. COMPARISON: None. TECHNIQUE: Real-time sonographic vascular imaging was performed by the assistant winemaker through the upper extremity utilizing both color-flow and Doppler spectral analysis. Multiple school admissions representative static images were saved for review. FINDINGS: Internal Jugular Vein (IJV): Normal. Subclavian Vein (SCV): Normal. Axillary Vein : Normal. Cephalic Vein (superficial vein): Normal. Basilic Vein (superficial vein): Normal. Brachial Vein: Normal. IMPRESSION: No evidence for deep vein thrombosis. RAD[facility]
== END 2019-01-29 15:52 | disposition home or self-care (01) ==
LOC: DI 15:51
PROVIDERS: ATTEND Family Medicine
DX: M79.89 Other specified soft tissue disorders (principal); M25.531 Pain in right wrist

== ENCOUNTER 2019-04-02 19:25 | Emergency (ER) | payer MEDICARE, OTHER ==
--- NOTE | 2019-04-02 20:21 | ED Physician Documentation ---
PD HPI CHEST PAIN - Stated complaint Stated Complaint: CHEST PX - Chief complaint Chief Complaint: Cardiac - History obtained from History obtained from: Patient - History of Present Illness Timing - onset: How many weeks ago (1) Timing - onset during: Rest, Eating (at night after eating, happens every night) Timing - duration: Hours Timing - details: Abrupt onset, Waxing and waning (then resolves with time) Quality: Aching, Indigestion (in the center of her chest) Location: Substernal Radiation: Neck Improved by: Nothing Worsened by: Other (unknown, possibly with eating) Associated symptoms: No: Shortness of air, Diaphoresis, Nausea, Vomiting, Feeling faint / dizzy, General Weakness, Palpitations, Cough Recently seen: Surgery (s/p Cervical spine fusion on february 12 with resulting cord edema and inability to swallow, pt had extended hospital stay in [place] and ended up with a G tube) - Treatment prior to arrival Treatment prior to arrival: takes pepcid twice daily Review of Systems Ten Systems: 10 systems reviewed and negative Constitutional: denies: Fever Throat: reports: Reviewed and negative Cardiac: reports: Chest pain / pressure. denies: Palpitations, Pedal edema, Calf pain Respiratory: denies: Dyspnea, Cough GI: reports: Nausea. 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, Tubal ligation Neuro: Craniotomy, Other - Present Medications Home Medications: Ambulatory Orders Medication Instructions Recorded Confirmed RX: Levothyroxine [Synthroid] 100 mcg PO QDAC 01/06/13 04/22/17 RX: Verapamil ER [Calan SA] 180 mg PO DAILY 01/06/13 04/22/17 Ibuprofen [Advil Liqui-Gels] 200 mg PO DAILY PRN 02/28/14 04/22/17 Lactobacillus Acidophilus 1 each PO DAILY 02/28/14 04/22/17 [Probiotic] Loratadine [Claritin] 10 mg PO DAILY 02/28/14 04/22/17 Multivitamin with Minerals 1 tab PO DAILY 02/28/14 04/22/17 [Multiple Vitamin] HYDROmorphone [Dilaudid] 2 mg PO Q4H PRN #10 tablet 04/22/17 Pregabalin [Lyrica] 12.5 mg PO DAILY 04/22/17 04/22/17 RX: Mirtazapine 7.5 mg PO DAILY 04/22/17 04/22/17 dexAMETHasone [Decadron] 4 mg PO DAILY #5 tablet 04/22/17 RX: Cephalexin Suspension [Keflex] 500 mg PO TID 7 Days #100 bottle 04/02/19 - Allergies Allergies/Adverse Reactions: Allergies Allergy/AdvReac Type Severity Reaction Status Date / Time acetaminophen [From Vicodin] Allergy Severe Respiratory Verified 04/22/17 11:19 benzocaine Allergy Severe Respiratory Verified 04/22/17 11:19 carbamazepine [From Tegretol] Allergy Severe Respiratory Verified 04/22/17 11:19 codeine [Codeine] Allergy Severe Respiratory Verified 04/22/17 11:19 ephedrine [Ephedrine] Allergy Severe Respiratory Verified 04/22/17 11:19 hydrocodone bitartrate * Allergy Severe Respiratory Verified 04/22/17 11:19 [From Vicodin] lamotrigine [From Lamictal] Allergy Severe Respiratory Verified 04/22/17 11:19 oxycodone [Oxycodone] Allergy Severe Respiratory Verified 04/22/17 11:19 Penicillins Allergy Severe Respiratory Verified 04/22/17 11:19 Sulfa (Sulfonamide Allergy Severe Respiratory Verified 04/22/17 11:19 Antibiotics) iodine Allergy Rash Verified 04/22/17 11:19 adhesive AdvReac Itching Verified 04/22/17 11:19 lorazepam [From Ativan] AdvReac Hallucinati Verified 04/22/17 11:19 ons - Social History Does the pt smoke?: No Smoking Status: Never smoker Does the pt drink ETOH?: No Does the pt have substance abuse?: No - Immunizations Immunizations are current?: Yes - POLST Patient has POLST: No PD ED PE NORMAL - Vitals Vital signs reviewed: Yes - General General: Alert and oriented X 3, No acute distress, Well developed/nourished - HEENT HEENT: Atraumatic, Moist mucous membranes, Pharynx benign - Neck Neck: No JVD, Other (in C-collar) - Cardiac Cardiac: RRR, No murmur, No gallop, No rub, Strong equal pulses - Respiratory Respiratory: No respiratory distress - Abdomen Abdomen: Soft, Non tender, Non distended - Female Female : Deferred - Rectal Rectal: Deferred - Extremities Extremities: No deformity, No tenderness to palpate, No edema - Neuro Neuro: Alert and oriented X 3 Eye Opening: Spontaneous Motor: Obeys Commands Verbal: Oriented GCS Score: 15 - Psych Psych: Normal mood, Normal affect Results - Vitals Vitals: Vital Signs - 24 hr 04/02/19 04/02/19 04/02/19 19:29 20:08 21:36 Temperature 36.5 C 37.6 C H Heart Rate 105 H 93 84 Respiratory 14 25 H 22 Rate Blood Pressure 115/67 103/66 113/68 Blood Pressure 103/66 [Right] O2 Saturation 96 96 96 Oxygen O2 Source Room air - EKG (time done) 19:32 Rate: Rate (enter#) (105) Rhythm: Sinus tachycardia Hines: Normal Intervals: Normal [place], QRS normal QRS: Normal Ischemia: Non specific changes, Other (borderline t wave flattening, no STEMI) - Labs Labs: Laboratory Tests 04/02/19 04/02/19 04/02/19 20:04 20:04 20:04 WBC 6.2 RBC 4.16 L Hgb 11.7 L Hct 37.3 MCV 89.7 MCH 28.1 MCHC 31.4 L RDW 18.2 H Plt Count 260 MPV 11.7 H Neut # (Auto) 4.3 Lymph # (Auto) 0.9 L [place] # (Auto) 0.6 Eos # (Auto) 0.4 Baso # (Auto) 0.1 Absolute Nucleated RBC 0.00 Nucleated RBC % 0.0 D-Dimer Sodium 136 Potassium 4.1 Chloride 101 Carbon Dioxide 24 Anion Gap 11.0 BUN 25 H Creatinine 0.8 Estimated GFR (MDRD) 70 L Glucose 114 H Calcium 9.2 Troponin I High Sens 3.8 04/02/19 20:04 WBC RBC Hgb Hct MCV MCH MCHC RDW Plt Count MPV Neut # (Auto) Lymph # (Auto) [place] # (Auto) Eos # (Auto) Baso # (Auto) Absolute Nucleated RBC Nucleated RBC % D-Dimer 967.0 H Sodium Potassium Chloride Carbon Dioxide Anion Gap BUN Creatinine Estimated GFR (MDRD) Glucose Calcium Troponin I High Sens - Rads (name of study) CXR Radiology: Final report received, EMP read contemporaneously (negative CXR) PD MEDICAL DECISION MAKING - ED course Complexity details: reviewed old records, reviewed results, re-evaluated patient, considered differential, d/w patient, d/w family ED course: ddx- gerd, anxiety, esophagitis, pe, unstable angina, PR, pneumonia, pneumothorax 78 y/o F s/p cervical spinal fusion with G tube in place due to difficulty swallowing after surgery. Pt went home 1 week ago after a prolonged hospitalization and had changed tube feedings to a bolus while awaiting a machine for an infusion of feeds. Since then has had nightly chest pain that radiates to her neck and throat that resolves on its own. CP is nonexertional and she is not sob. ekg here is nonischemic and without signs of R heart strain though she does have sinus tachycardia. CXR is clear. Troponin and labs normal but given risk factor of recent surgery and sinus tachycardia on her ekg obtained a d-dimer which was elevated even when adjusted for age. Ordered CTA but pt refused. Discussed the possibility of a PE with the pt and worsening of her sob and heart and lung function and even possibility of if PE is present and untreated however she understands these risks and feels that she most likely has GERD, is currently asymptomatic and would like to go home. Pt also has a likely G tube site infection with some redness of the site, increased pain and drainage thus initiated keflex and pt is to f/u iw her surgeon for a recheck in 2-3 days. Return precautions provided as documented. Departure - Departure Disposition: 01 Home, Self Care Clinical Impression: Gastrostomy tube skin breakdown, Atypical chest pain, Elevated d-dimer Condition: Stable Record reviewed to determine appropriate education?: Yes Instructions: ED Chest Pain Atypical Unkn Cause Follow-Up: Roslyn Figueroa MD [Primary Care Provider] - Prescriptions: RX: Cephalexin Suspension [Keflex] 500 mg PO TID 7 Days #100 bottle Comments: Your evaluation today demonstrated a normal EKG and normal heart enzymes. Your electrolytes and kidney function were also normal. Your chest xray was unremarkable. Your d-dimer that evaluates for clot breakdown products and could indicate a blood clot in your lung was elevated and could suggest a pulmonary embolism. This test is sensitive but not specific meaning it screens for a clot but may sometimes be falsely positive. The followup evaluation is a CT scan of your chest with IV contrast. You did not want this test today and I think this is reasonable since your heart and oxygen are normal and this may be in fact due to your tube feeding boluses and GERD. However if you have any worsening symptoms or shortness of breath you should return to the ED for this test. Your G tube site looks to have a skin infection thus I am prescribing your cephalexin antibiotic and you should follow up with your surgeon for a recheck. Discharge Date/Time: 04/02/19 22:00
[2019-04-02 20:24] LABS: BASOPHILS # (AUTO) 0.1 10^3/uL (0.0-0.1); BASOPHILS % (AUTO) 1.1 %; EOSINOPHILS # (AUTO) 0.4 10^3/uL (0.0-0.7); EOSINOPHILS % (AUTO) 6.4 %; HGB - HEMOGLOBIN 11.7 g/dL (12.0-16.0); LYMPHOCYTES # (AUTO) 0.9 10^3/uL (1.5-3.5); LYMPHOCYTES % (AUTO) 14.3 %; MEAN CORPUSCULAR HEMOGLOBIN 28.1 pg (27.0-31.0); MEAN CORPUSCULAR HGB CONC 31.4 g/dL (32.0-36.0); MEAN CORPUSCULAR VOLUME 89.7 fL (81.0-99.0); MEAN PLATELET VOLUME 11.7 fL (7.9-10.8); MONOCYTES # (AUTO) 0.6 10^3/uL (0.0-1.0); MONOCYTES % (AUTO) 8.8 %; NEUTROPHILS # (AUTO) 4.3 10^3/uL (1.5-6.6); NEUTROPHILS % (AUTO) 69.2 %; PLT - PLATELET COUNT 260 10^3/uL (130-450); RED BLOOD COUNT 4.16 10^6/uL (4.20-5.40); RED CELL DISTRIBUTION WIDTH 18.2 % (12.0-15.0); WHITE BLOOD COUNT 6.2 x10^3/uL (4.8-10.8)
[2019-04-02 20:40] LABS: CALCIUM 9.2 mg/dL (8.5-10.3); CREATININE 0.8 mg/dL (0.4-1.0)
--- NOTE | 2019-04-02 20:40 | XRAY Report ---
Reason: chest pain Procedure Date: 04/02/2019 Accession Number: [id number] / [id number] Procedure: XR - Chest 1 View X-Ray CPT Code: 09366 FULL RESULT: EXAM: CHEST RADIOGRAPHY EXAM DATE: 04/02/2019 08:28 PM. CLINICAL HISTORY: Chest pain. COMPARISON: CHEST 2 VIEW PA/LAT 11/07/2015 8:57 AM ABDOMEN/PELVIS ANGIO 09/08/2014 2:40 PM. TECHNIQUE: Upright AP view. FINDINGS: Lungs/Pleura: No focal opacities evident. No pleural effusion. No pneumothorax. Mediastinum: Within exam limitations, the cardiomediastinal contour is normal. Other: Percutaneous gastrostomy now is present. 2 cm teardrop shaped rim calcified structure in the left upper quadrant corresponding to a thrombosed splenic artery aneurysm on the prior CT angiogram. IMPRESSION: No evidence of active cardiopulmonary disease. [facility]
[2019-04-02] MEDS ORDERED: CEPHALEXIN 125 MG/5 ML SYRINGE PO STA (21:29)
[2019-04-02 21:37] VITALS: BP 113/68
== END 2019-04-02 22:00 | disposition home or self-care (01) ==
LOC: ED 19:25
DX: R07.89 Other chest pain (principal); R00.0 Tachycardia, unspecified; R79.89 Other specified abnormal findings of blood chemistry; K21.9 Gastro-esophageal reflux disease without esophagitis; K94.29 Other complications of gastrostomy; L98.8 Other specified disorders of the skin and subcutaneous tissue; Y83.3 Surgical operation with formation of external stoma as the cause of abnormal reaction of the patient, or of later complication, without mention of misadventure at the time of the procedure; Z98.1 Arthrodesis status
CPT/HCPCS: 36415; 71045; 80048; 84484; 85025; 85379; 93005; 99284; A9270

== ENCOUNTER 2019-05-07 12:14 | Outpatient (CLI) | payer MEDICARE, OTHER ==
--- NOTE | 2019-05-07 15:31 | XRAY Report ---
Reason: COUGH Procedure Date: 05/07/2019 Accession Number: [id number] / [id number] Procedure: XR - Chest 2 View X-Ray CPT Code: 61067 FULL RESULT: EXAM: CHEST RADIOGRAPHY EXAM DATE: 05/07/2019 01:01 PM. CLINICAL HISTORY: Cough. COMPARISON: CHEST 1 VIEW 04/02/2019. TECHNIQUE: 2 views. FINDINGS: Lungs/Pleura: No focal opacities evident. No pleural effusion. No pneumothorax. Normal volumes. Mediastinum: Heart and mediastinal contours are unremarkable. Other: None. IMPRESSION: Normal 2-view chest radiography. RADIA
== END 2019-05-07 12:15 | disposition home or self-care (01) ==
LOC: DI 12:14
PROVIDERS: ATTEND Family Medicine
DX: R05 Cough (principal)
CPT/HCPCS: 71046

== ENCOUNTER 2019-05-09 08:16 | Outpatient (CLI) | payer MEDICARE, OTHER ==
--- NOTE | 2019-05-11 08:05 | Ultrasound Report ---
Reason: KNEE PAIN LEFT Procedure Date: 05/09/2019 Accession Number: [id number] / [id number] Procedure: US - Ext Limited Non Vascular CPT Code: FULL RESULT: EXAM: LEFT LOWER EXTREMITY ULTRASOUND - LIMITED EXAM DATE: 05/09/2019 09:34 AM. CLINICAL HISTORY: Knee pain, left. COMPARISON: None. TECHNIQUE: Real-time scanning was performed with static images obtained. FINDINGS: No concerning solid identified. Left popliteal fossa cyst measuring 4.3 cm. Internal debris is noted. No cystic or solid components. Anechoic anterior knee joint effusion noted. Remaining soft tissues are normal. IMPRESSION: 1. Complex left popliteal fossa cyst containing debris. 2. Anterior left knee joint effusion. RADIA
== END 2019-05-09 08:17 | disposition home or self-care (01) ==
LOC: DI 08:16
PROVIDERS: ATTEND Family Medicine
DX: M71.22 Synovial cyst of popliteal space [Baker], left knee (principal); M25.462 Effusion, left knee
CPT/HCPCS: 76882

== ENCOUNTER 2019-06-06 09:13 | Outpatient (CLI) | payer MEDICARE, OTHER ==
--- NOTE | 2019-06-06 18:40 | XRAY Report ---
Reason: CERVICAL STENOSIS OF SPINE, MYELOPATHY Procedure Date: 06/06/2019 Accession Number: [id number] / [id number] Procedure: XRN - Cervical Spine 2 View CPT Code: FULL RESULT: EXAM: CERVICAL SPINE RADIOGRAPHY EXAM DATE: 06/06/2019 10:00 AM. CLINICAL HISTORY: CERVICAL STENOSIS OF SPINE, MYELOPATHY. Postsurgical assessment COMPARISONS: CERVICAL SPINE W/FLEX/EXT 03/05/2018 1:30 PM MSK 05/09/2019 8:41 AM. TECHNIQUE: 3 views. FINDINGS: Compared with 03/05/2018 patient has undergone additional surgery. Previously seen anterior C4-C5 fusion hardware has been removed. New anterior screw and plate fixation extending from C3-C6 with new interbody fusion device at C3-C4 and possibly C5-C6. No abnormal motion between flexion and extension. Advance C6-C7 disk space narrowing. IMPRESSION: New anterior postsurgical changes appearing since 2317. No abnormal motion between flexion and extension. RAD[facility]
== END 2019-06-06 09:14 | disposition home or self-care (01) ==
LOC: DI.N 09:13
PROVIDERS: ATTEND Physician Assistant
DX: M48.02 Spinal stenosis, cervical region (principal); Z98.1 Arthrodesis status
CPT/HCPCS: 72040

== ENCOUNTER 2019-06-18 12:15 | Emergency (ER) | payer MEDICARE, OTHER ==
[2019-06-18] MEDS ORDERED: methylPREDNISolone SUCCINATE 125 MG/2 ML VIAL IVP STA (12:50)
[2019-06-18] MEDS ORDERED: diphenhydrAMINE INJ 50 MG/ML VIAL IVP STA (12:50)
--- NOTE | 2019-06-18 13:04 | ED Physician Documentation ---
History of Present Illness - Stated complaint Stated Complaint: POST OP PX - Chief complaint Chief Complaint: Abd Pain - Additonal information Additional information: This is a 78-year-old female who is over 4 months status post revision of a C4 corpectomy and C3-C5 cage plate, who needed a PEG tube after the revision surgery, but passed a swallow test so her G-tube was removed 1 week prior to today. In the last 48 hours she HAs developed some pain around the site of her PEG tube, without any drainage, fever, or redness in the area. She states that when it first placed the tube she did have an abscess there, and given her increasing pain her GI doctor wanted her to come to get evaluated today and receive a CT scan.She denies fever, and states that the pain is currently moderate in severity, sharp, and located just around where the G-tube site is. She denies nausea or vomiting. Review of Systems Constitutional: denies: Fever Eyes: denies: Loss of vision Cardiac: denies: Chest pain / pressure Respiratory: denies: Dyspnea GI: reports: Abdominal Pain : denies: Dysuria Skin: denies: Rash Musculoskeletal: denies: Neck pain, Back pain Neurologic: reports: Syncope. denies: Generalized weakness Immunocompromised: denies: Immunocompromised PD PAST MEDICAL HISTORY - Past Medical History Past Medical History: Yes Cardiovascular: Murmur, Other Respiratory: None Neuro: Other Endocrine/Autoimmune: HyPOthyroidism GI: GERD LAW OFFICE ASSISTANT: None : None HEENT: None Psych: Depression Musculoskeletal: Chronic back pain Derm: Eczema, Other - Past Surgical History Past Surgical History: Yes General: EGD Ortho: Spine surgery /LAW OFFICE ASSISTANT: section, Tubal ligation Neuro: Craniotomy, Other - Present Medications Home Medications: Ambulatory Orders Medication Instructions Recorded Confirmed Levothyroxine [Synthroid] 100 mcg PO QDAC 01/06/13 04/22/17 Verapamil ER [Calan SA] 180 mg PO DAILY 01/06/13 04/22/17 Ibuprofen [Advil Liqui-Gels] 200 mg PO DAILY PRN 02/28/14 04/22/17 Lactobacillus Acidophilus 1 each PO DAILY 02/28/14 04/22/17 [Probiotic] Loratadine [Claritin] 10 mg PO DAILY 02/28/14 04/22/17 Multivitamin with Minerals 1 tab PO DAILY 02/28/14 04/22/17 [Multiple Vitamin] HYDROmorphone [Dilaudid] 2 mg PO Q4H PRN #10 tablet 04/22/17 Mirtazapine 7.5 mg PO DAILY 04/22/17 04/22/17 Pregabalin [Lyrica] 12.5 mg PO DAILY 04/22/17 04/22/17 dexAMETHasone [Decadron] 4 mg PO DAILY #5 tablet 04/22/17 Cephalexin Suspension [Keflex] 500 mg PO TID 7 Days #100 bottle 04/02/19 - Allergies Allergies/Adverse Reactions: Allergies Allergy/AdvReac Type Severity Reaction Status Date / Time acetaminophen [From Vicodin] Allergy Severe Respiratory Verified 04/22/17 11:19 benzocaine Allergy Severe Respiratory Verified 04/22/17 11:19 carbamazepine [From Tegretol] Allergy Severe Respiratory Verified 04/22/17 11:19 codeine [Codeine] Allergy Severe Respiratory Verified 04/22/17 11:19 ephedrine [Ephedrine] Allergy Severe Respiratory Verified 04/22/17 11:19 hydrocodone bitartrate * Allergy Severe Respiratory Verified 04/22/17 11:19 [From Vicodin] lamotrigine [From Lamictal] Allergy Severe Respiratory Verified 04/22/17 11:19 oxycodone [Oxycodone] Allergy Severe Respiratory Verified 04/22/17 11:19 Penicillins Allergy Severe Respiratory Verified 04/22/17 11:19 Sulfa (Sulfonamide Allergy Severe Respiratory Verified 04/22/17 11:19 Antibiotics) iodine Allergy Rash Verified 04/22/17 11:19 adhesive AdvReac Itching Verified 04/22/17 11:19 lorazepam [From Ativan] AdvReac Hallucinati Verified 04/22/17 11:19 ons - Social History Does the pt smoke?: No Smoking Status: Never smoker Does the pt drink ETOH?: No Does the pt have substance abuse?: No - Immunizations Immunizations are current?: Yes - POLST Patient has POLST: No PD ED PE NORMAL - Vitals Vital signs reviewed: Yes - General General: Alert and oriented X 3 - HEENT HEENT: Other (Well-healed anterior cervical surgical scar) - Cardiac Cardiac: RRR - Respiratory Respiratory: No respiratory distress - Abdomen Abdomen: Other (Small G-tube site in the mid epigastric region. There is no drainage from the site, no redness. There is mild tenderness palpation around the site, abdomen is otherwise nontender. no guarding.) - Extremities Extremities: No deformity - Neuro Neuro: Alert and oriented X 3, Normal speech Results - Vitals Vitals: Vital Signs - 24 hr 06/18/19 06/18/19 06/18/19 12:25 13:15 14:15 Temperature 36.6 C Heart Rate 64 66 59 L Respiratory 18 16 16 Rate Blood Pressure 129/58 L 108/88 H 109/63 O2 Saturation 98 100 100 06/18/19 06/18/19 06/18/19 14:53 15:40 15:49 Temperature 36.6 C Heart Rate 73 72 Respiratory 16 14 Rate Blood Pressure 115/60 115/63 O2 Saturation 100 97 Oxygen O2 Source Room air - Labs Labs: Laboratory Tests 06/18/19 06/18/19 06/18/19 13:11 13:11 13:11 WBC 4.4 L RBC 4.12 L Hgb 11.9 L Hct 36.2 L MCV 87.9 MCH 28.9 MCHC 32.9 RDW 15.5 H Plt Count 149 MPV 11.5 H Neut # (Auto) 3.1 Lymph # (Auto) 0.7 L [place] # (Auto) 0.4 Eos # (Auto) 0.1 Baso # (Auto) 0.0 Absolute Nucleated RBC 0.00 Nucleated RBC % 0.0 PT 14.9 H INR 1.3 H Sodium 144 Potassium 3.7 Chloride 106 Carbon Dioxide 26 Anion Gap 12.0 BUN 14 Creatinine 0.8 Estimated GFR (MDRD) 70 L Glucose 88 Calcium 9.1 Total Bilirubin 0.7 AST 18 ALT 12 Alkaline Phosphatase 49 Total Protein 6.4 L Albumin 4.2 Globulin 2.2 Albumin/Globulin Ratio 1.9 Lipase 42 Urine Color Urine Clarity Urine pH Ur Specific [place] Urine Protein Urine Glucose (UA) Urine Ketones Urine Occult Blood Urine Nitrite Urine Bilirubin Urine Urobilinogen Ur Leukocyte Esterase Ur Microscopic Review Urine Culture Comments 06/18/19 14:15 WBC RBC Hgb Hct MCV MCH MCHC RDW Plt Count MPV Neut # (Auto) Lymph # (Auto) [place] # (Auto) Eos # (Auto) Baso # (Auto) Absolute Nucleated RBC Nucleated RBC % PT INR Sodium Potassium Chloride Carbon Dioxide Anion Gap BUN Creatinine Estimated GFR (MDRD) Glucose Calcium Total Bilirubin AST ALT Alkaline Phosphatase Total Protein Albumin Globulin Albumin/Globulin Ratio Lipase Urine Color YELLOW Urine Clarity CLEAR Urine pH 7.0 Ur Specific [place] 1.020 Urine Protein NEGATIVE Urine Glucose (UA) NEGATIVE Urine Ketones TRACE Urine Occult Blood NEGATIVE Urine Nitrite NEGATIVE Urine Bilirubin NEGATIVE Urine Urobilinogen 0.2 (NORMAL) Ur Leukocyte Esterase NEGATIVE Ur Microscopic Review NOT INDICATED Urine Culture Comments NOT INDICATED - Rads (name of study) CT abd/pelvis W Radiology: Other (No abnormal fluid collection or extra-intestinal gas) PD MEDICAL DECISION MAKING - ED course Complexity details: considered differential (gastritis, MSK pain, intra- abdominal abscess) ED course: Pt is very well appearing on exam with a benign abdomen. Labs show some mild leukopenia and anemia, stable from previous values, otherwise labs are unremarkable. Pt was pretreated with benadryl and solumedrol due to history of adverse reaction to contrast, CT scan obtained showing no signs of abscess or other acute explanation for her discomfort. No chest symptoms to suggest cardiac cause. On repeat exam she is feeling well with a benign abdomen. The exact cause of her pain is unclear but she is reassured by our results today. I recommended continued follow up with her PCP and audiovisual equipment operator, and return to the ED with any new/concerning symptoms. Patient agreed to this plan and was discharged home. Departure - Departure Disposition: 01 Home, Self Care Clinical Impression: Abdominal pain Qualifiers: Abdominal location: unspecified location Qualified Code(s): R10.9 - Unspecified abdominal pain Condition: Good Instructions: ED Abdominal Pain Unkn Cause Follow-Up: BRENT ARCHULETA MD [Primary Care Provider] - Comments: You were seen today for abdominal pain around your site where you PEG tube was. Your CT is reassuring and does not show signs of an abscess or fluid collection outside the intestines or stomach. Your labs are also reassuring. Please follow-up with your primary care provider, and your audiovisual equipment operator and surgeon as needed. If you are developing worsening abdominal pain, persistent vomiting, or any other concerning symptoms return to the emergency department Discharge Date/Time: 06/18/19 15:49
[2019-06-18 13:16] LABS: BASOPHILS % (AUTO) 0.9 %; EOSINOPHILS # (AUTO) 0.1 10^3/uL (0.0-0.7); EOSINOPHILS % (AUTO) 2.5 %; HGB - HEMOGLOBIN 11.9 g/dL (12.0-16.0); LYMPHOCYTES # (AUTO) 0.7 10^3/uL (1.5-3.5); LYMPHOCYTES % (AUTO) 14.9 %; MEAN CORPUSCULAR HEMOGLOBIN 28.9 pg (27.0-31.0); MEAN CORPUSCULAR HGB CONC 32.9 g/dL (32.0-36.0); MEAN CORPUSCULAR VOLUME 87.9 fL (81.0-99.0); MEAN PLATELET VOLUME 11.5 fL (7.9-10.8); MONOCYTES # (AUTO) 0.4 10^3/uL (0.0-1.0); MONOCYTES % (AUTO) 9.8 %; NEUTROPHILS # (AUTO) 3.1 10^3/uL (1.5-6.6); NEUTROPHILS % (AUTO) 71.7 %; PLT - PLATELET COUNT 149 10^3/uL (130-450); RED BLOOD COUNT 4.12 10^6/uL (4.20-5.40); RED CELL DISTRIBUTION WIDTH 15.5 % (12.0-15.0); WHITE BLOOD COUNT 4.4 x10^3/uL (4.8-10.8)
[2019-06-18 13:25] LABS: INR 1.3 (0.8-1.2); PT - PROTHROMBIN TIME 14.9 secs (9.9-12.6)
[2019-06-18 13:28] LABS: ALBUMIN 4.2 g/dL (3.2-5.5); ALBUMIN/GLOBULIN RATIO 1.9 (1.0-2.2); BILIRUBIN,TOTAL 0.7 mg/dL (0.2-1.0); CALCIUM 9.1 mg/dL (8.5-10.3); CREATININE 0.8 mg/dL (0.4-1.0); TOTAL PROTEIN 6.4 g/dL (6.7-8.2)
[2019-06-18] MEDS ORDERED: IOVERSOL 320 100 ML VIAL IVP ONE ×2 (14:24→16:59)
[2019-06-18 14:32] LABS: BILIRUBIN,URINE NEGATIVE (NEGATIVE); CLARITY,URINE CLEAR (CLEAR); GLUCOSE, URINE (UA) NEGATIVE (NEGATIVE); KETONES,URINE (UA) TRACE mg/dL (NEGATIVE); LEUKOCYTE ESTERASE, URINE NEGATIVE (NEGATIVE); NITRITE,URINE NEGATIVE (NEGATIVE); OCCULT BLOOD,URINE NEGATIVE (NEGATIVE); PROTEIN,URINE NEGATIVE (NEGATIVE); UROBILINOGEN,URINE 0.2 (NORMAL) E.U./dL (NORMAL)
--- NOTE | 2019-06-18 15:06 | CT Report ---
Reason: Abdominal pain after G-tube removal Procedure Date: 06/18/2019 Accession Number: [id number] / [id number] Procedure: CT - Abdomen/Pelvis W CPT Code: Final Report FULL RESULT: EXAM: CT ABDOMEN AND PELVIS EXAM DATE: 06/18/2019 02:38 PM. CLINICAL HISTORY: Abdominal pain after G-tube removal. COMPARISONS: IVP 10/31/2018 12:13 PM. TECHNIQUE: Routine helical CT imaging was performed through the abdomen and pelvis. IV contrast: Opti 320 100 mL. Enteric contrast: No. Reconstructions: Coronal and sagittal. In accordance with CT protocol optimization, one or more of the following dose reduction techniques were utilized for this exam: automated exposure control, adjustment of mA and/or KV based on patient size, or use of iterative reconstructive technique. FINDINGS: Lung Bases: Unremarkable. Liver: Normal. No masses. Gallbladder/Bile Ducts: Unremarkable. Spleen: Normal. Pancreas: Normal. Adrenal Glands: Normal. Kidneys: There is a left renal cyst. No obstruction on either side. Peritoneal Cavity/Bowel: There is no bowel obstruction, free fluid or free air. The enteric tube tract is visualized and demonstrates no definite fluid collection or gas along the path. There is no lymphadenopathy by size criteria. Pelvic Organs: Normal. The bladder and visualized pelvic organs are within normal limits. Vasculature: Calcified, presumably thrombosed, 1.5 cm splenic artery aneurysm is noted, similar to October 2018. There is mild to moderate abdominal aortic atherosclerosis. There is apparent arteriovenous shunting from the hypertrophied right uterine artery with drainage and increased opacification along gonadal veins. Bones: No aggressive osseous lesion. Other: None. IMPRESSION: No evidence of extra intestinal gas or fluid post enteric tube removal and no fluid collection along the prior enteric tube tract. RADIA
[2019-06-18 15:45] VITALS: BP 115/63
== END 2019-06-18 15:49 | disposition home or self-care (01) ==
LOC: ED 12:15
DX: R10.9 Unspecified abdominal pain (principal); D72.819 Decreased white blood cell count, unspecified; D64.9 Anemia, unspecified; Z98.890 Other specified postprocedural states; Z91.041 Radiographic dye allergy status
CPT/HCPCS: 36415; 74177; 80053; 81003; 83690; 85025; 85610; 96374; 96375; 99284; J1200; Q9967; 81001; 87086

== ENCOUNTER 2019-08-27 08:00 | Outpatient (CLI) | payer MEDICARE, OTHER | END 2019-08-27 23:59 | disposition home or self-care (01) | LOC: LAB.N 08:00 | PROVIDERS: ATTEND Family Medicine | DX: E03.9 Hypothyroidism, unspecified (principal) | CPT/HCPCS: 36415; 84443 ==

== ENCOUNTER 2019-08-27 10:36 | Outpatient (CLI) | payer MEDICARE, OTHER ==
--- NOTE | 2019-08-27 14:53 | XRAY Report ---
Reason: cough Procedure Date: 08/27/2019 Accession Number: [id number] / [id number] Procedure: XRN - Chest 2 View X-Ray CPT Code: 59734 Final Report FULL RESULT: EXAM: CHEST RADIOGRAPHY. EXAM DATE: 08/27/2019 11:00 AM. CLINICAL HISTORY: Cough. COMPARISON: CHEST 2 VIEW 05/07/2019 12:51 PM. TECHNIQUE: 2 views. FINDINGS: Lungs/Pleura: No focal opacities evident. No pleural effusion. No pneumothorax. Normal volumes. Mediastinum: Heart and mediastinal contours are unremarkable. Other: None. IMPRESSION: No acute cardiopulmonary abnormality. RADIA
== END 2019-08-27 10:37 | disposition home or self-care (01) ==
LOC: DI.N 10:36
PROVIDERS: ATTEND Family Medicine
DX: R05 Cough (principal)
CPT/HCPCS: 71046

== ENCOUNTER 2019-09-17 13:19 | Outpatient (CLI) | payer MEDICARE, OTHER ==
--- NOTE | 2019-09-18 07:25 | XRAY Report ---
Reason: DISEASE OF SPINAL CORD Procedure Date: 09/17/2019 Accession Number: [id number] / [id number] Procedure: XR - Cervical Spine 2 View CPT Code: Final Report FULL RESULT: EXAM: CERVICAL SPINE RADIOGRAPHY, LATERAL. EXAM DATE: 09/17/2019 01:42 PM. HISTORY: Disease of spinal cord. Cervical spine fusion. Myelopathy. Cervical radiculopathy. Oropharyngeal dysphagia. COMPARISONS: CERVICAL SPINE 2 VIEW 06/06/2019 9:59 AM. CERVICAL SPINE W/FLEX/EXT 03/05/2018 1:30 PM. TECHNIQUE: 3 views. Lateral, flexion and extension lateral. FINDINGS: Alignment: Normal. No spondylolisthesis or scoliosis. No abnormal motion with flexion or extension. Bones: The cervical vertebral bodies and posterior elements are well visualized from the skull base through C7-T1. Stable postoperative change is evident. Anterior cervical fusion with metallic plate and anchoring screws extends from C3 through C6. Interbody fusion device is seen from C3-C4 through C5-C6. Additionally, stable solid osseous interbody fusion is seen at C6-C7. Disks: Disk space narrowing with mild endplate sclerosis and osteophyte formation is seen at C6-C7. This is unchanged. Facets: Unremarkable on lateral films. Mild degenerative facet change is present at C7-T1. Soft Tissues: Unremarkable on lateral films. No prevertebral soft tissue swelling. IMPRESSION: 1. Stable lateral cervical spine plain films. No abnormal motion between flexion and extension. 2. Stable anterior fusion from C3 through C6. Stable osseous interbody fusion at C6-C7. RADIA
== END 2019-09-17 13:20 | disposition home or self-care (01) ==
LOC: DI 13:19
PROVIDERS: ATTEND Internal Medicine Cardiovascular Disease
DX: M47.13 Other spondylosis with myelopathy, cervicothoracic region (principal); R13.12 Dysphagia, oropharyngeal phase; Z98.1 Arthrodesis status
CPT/HCPCS: 72040

== ENCOUNTER 2020-02-18 14:17 | Outpatient (CLI) | payer MEDICARE, OTHER ==
--- NOTE | 2020-02-18 17:09 | XRAY Report ---
PROCEDURE: Cervical Spine 2 View INDICATIONS: S/ CERVICAL SPINAL FUSION, CERVICAL RADICULOPATHY TECHNIQUE: 3 view(s) of the cervical spine were acquired. COMPARISON: 09/17/2019 FINDINGS: Bones: No fractures or dislocations to the T2 level. The lateral masses of C1 appear intact on the odontoid view. No suspicious bony lesions. Stable postoperative changes from anterior cervical disc ectomy and fusion from C3 through C6. Anterior plate and screw fixation is stable without evidence fo r failure or loosening. Stable osseous fusion of C5-6. Stable postoperative alignment on the neutral view. There is micromotion between the posterior elements of C4 and C5 between flexion and extension views. Degenerative changes at C6-7 are again noted. Soft tissues: No prevertebral soft tissue swelling. IMPRESSION: 1. Status post ACDF of C3-C7 without evidence for hardware complication. There is micromotion at the level of C4 and C5 between flexion and extension views. Consider further evaluation with nuclear medi cine bone scan to evaluate for abnormal activity at this level. 2. Cervical spondylosis at C6-7. Reviewed by: Nate Lagos MD on 02/18/2020 5:08 PM PDT Approved by: Nate Lagos MD on 02/18/2020 5:08 PM PDT Station ID: [id number]
== END 2020-02-18 14:18 | disposition home or self-care (01) ==
LOC: DI 14:17
PROVIDERS: ATTEND Neurological Surgery
DX: M47.22 Other spondylosis with radiculopathy, cervical region (principal); Z98.1 Arthrodesis status; R13.12 Dysphagia, oropharyngeal phase; G95.9 Disease of spinal cord, unspecified
CPT/HCPCS: 72040

== ENCOUNTER 2020-02-26 15:29 | Outpatient (CLI) | payer MEDICARE, OTHER ==
[2020-02-26 20:46] LABS: CANDIDA GROUP DNA NEGATIVE (NEGATIVE); CANDIDA KRUSEI DNA NEGATIVE (NEGATIVE); TRICHOMONAS VAGINALIS DNA NEGATIVE (NEGATIVE)
== END 2020-02-26 23:59 | disposition home or self-care (01) ==
LOC: LAB.R 15:29
PROVIDERS: ATTEND Family Medicine
DX: R39.9 Unspecified symptoms and signs involving the genitourinary system (principal); N76.0 Acute vaginitis
CPT/HCPCS: 87086; 87661; 87801

== ENCOUNTER 2020-03-05 16:27 | Outpatient (CLI) | payer MEDICARE, OTHER ==
--- NOTE | 2020-03-06 15:40 | Ultrasound Report ---
PROCEDURE: Ext Limited Non Vascular INDICATIONS: RT ARM PAIN TECHNIQUE: Real-time scanning was performed of the area of current clinical concern right forearm ar ea, with image documentation. COMPARISON: None. FINDINGS: There is a soft tissue structure within the fatty soft tissues that is free of significant vascularity, and appears relatively noncompressible with overall dimensions measuring 1.2 x 5.5 cm i n axial dimension, and 11.7 cm in craniocaudad length. This may represent a lipoma or some form of soft tissue distortion related to prior reported surgery in this general area (less likely). IMPRESSION: Suspected lipoma as cause of the soft tissue "masslike" structure found in the area of p shabana's clinical concern. In the setting of surgery in this general area it is possible that the carlos earance is produced by postsurgical scarring. Please correlate clinically-depending on the clinical s tatus follow-up by contrast-enhanced MR scanning through this area may become necessary. Reviewed by: Jin Beasley MD on 03/06/2020 3:39 PM PDT Approved by: Jin Beasley MD on 03/06/2020 3:39 PM PDT Station ID: [id number]
== END 2020-03-05 16:28 | disposition home or self-care (01) ==
LOC: DI 16:27
PROVIDERS: ATTEND Family Medicine
DX: R93.6 Abnormal findings on diagnostic imaging of limbs (principal)
CPT/HCPCS: 76882

== ENCOUNTER 2020-04-17 14:31 | Outpatient (CLI) | payer MEDICARE, OTHER | END 2020-04-17 14:32 | disposition home or self-care (01) | LOC: COV 14:31 | PROVIDERS: ATTEND Surgery | DX: Z01.818 Encounter for other preprocedural examination (principal); D17.9 Benign lipomatous neoplasm, unspecified; Z20.828 Contact with and (suspected) exposure to other viral communicable diseases ==

== ENCOUNTER 2020-04-21 09:25 | Day surgery (SDC) | payer MEDICARE, OTHER ==
[2020-04-21] MEDS ORDERED: LACTATED RINGERS 1,000 ML IV ONE ×2 (09:52→11:51)
[2020-04-21] MEDS ORDERED: BUPIVACAINE 0.25%-EPI 1:200000 PF 30 ML VIAL ONE (10:16)
[2020-04-21] MEDS ORDERED: BUPIVACAINE 0.25% PF 30 ML VIAL ONE (10:16)
[2020-04-21] MEDS ORDERED: ePHEDrine 50 MG/ML VIAL IVP PRN (10:17)
[2020-04-21] MEDS ORDERED: METOCLOPRAMIDE 10 MG/2 ML VIAL IVP PRN (10:17)
[2020-04-21] MEDS ORDERED: ATROPINE ABBOJECT 1 MG/10 ML SYRINGE IVP PRN (10:17)
[2020-04-21] MEDS ORDERED: MORPHINE 2 MG/ML CARPUJECT IVP PRN (10:17)
[2020-04-21] MEDS ORDERED: ONDANSETRON 4 MG/2 ML VIAL IVP PRN (10:17)
[2020-04-21] MEDS ORDERED: NALOXONE 0.4 MG/ML VIAL IVP PRN (10:17)
[2020-04-21] MEDS ORDERED: fentaNYL 100 MCG/2 ML VIAL IVP PRN (10:17)
[2020-04-21] MEDS ORDERED: HYDROmorphone 0.5 MG/0.5 ML SYRINGE IVP PRN (10:17)
--- NOTE | 2020-04-21 10:17 | ANESTHESIA ---
Pre-Anesthesia VS, & Labs - Diagnosis right forearm lipoma - Procedure excision forearm lipoma right arm Vital Signs: Temp Pulse Resp BP Pulse Ox 36.8 C 61 18 151/77 H 98 04/21/20 09:32 04/21/20 09:32 04/21/20 09:32 04/21/20 09:32 04/21/20 09:32 Height 5 ft 1 in Weight (kg) 55.6 kg Body Mass Index 21.3 - NPO >8 hours - Is Patient ?: No - Lab Results Lab results reviewed: Yes Home Medications and Allergies Home Medications: Ambulatory Orders HYDROmorphone [Dilaudid] 1 mg PO Q4H PRN 04/13/20 Turmeric Root Extract [Turmeric] 1,053 mg PO DAILY 04/13/20 Levothyroxine [Synthroid] 75 mcg PO QDAC 01/06/13 Ibuprofen [Advil Liqui-Gels] 200 mg PO DAILY PRN 02/28/14 Mirtazapine 0.5 tab PO DAILY 04/22/17 HYDROmorphone [Dilaudid] 1 mg PO Q4H PRN 04/13/20 Turmeric Root Extract [Turmeric] 1,053 mg PO DAILY 04/13/20 Allergies/Adverse Reactions: Allergies Allergy/AdvReac Type Severity Reaction Status Date / Time acetaminophen [From Vicodin] Allergy Severe Rash Verified 04/13/20 16:41 benzocaine Allergy Severe Respiratory Verified 04/22/17 11:19 carbamazepine [From Tegretol] Allergy Severe Respiratory Verified 04/22/17 11:19 codeine [Codeine] Allergy Severe Respiratory Verified 04/22/17 11:19 ephedrine [Ephedrine] Allergy Severe Respiratory Verified 04/22/17 11:19 hydrocodone bitartrate * Allergy Severe Respiratory Verified 04/22/17 11:19 [From Vicodin] lamotrigine [From Lamictal] Allergy Severe Respiratory Verified 04/22/17 11:19 oxycodone [Oxycodone] Allergy Severe Respiratory Verified 04/22/17 11:19 Penicillins Allergy Severe Rash Verified 04/13/20 16:41 Sulfa (Sulfonamide Allergy Severe Rash Verified 04/13/20 16:41 Antibiotics) ciprofloxacin [From Cipro] Allergy seizures Verified 04/13/20 16:41 iodine Allergy Rash Verified 04/22/17 11:19 methadone Allergy psychotic Verified 04/13/20 16:36 break adhesive AdvReac Itching Verified 04/22/17 11:19 lorazepam [From Ativan] AdvReac Hallucinati Verified 04/22/17 11:19 ons Anes History & Medical History - Anesthetic History Anesthesia Complications: reports: No previous complications Family history of Anesthesia Complications: Denies Family history of Malignant Hyperthermia: Denies - Medical History Cardiovascular: reports: Murmur, Arrhythmia Pulmonary: reports: None Gastrointestinal: reports: Other Urinary: reports: None Neuro: reports: Seizure disorder (last one sep 2019), Other (had multiple neck fusions, 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) Musculoskeletal: reports: Chronic back pain, Other Endocrine/Autoimmune: reports: HyPOthyroidism Skin: reports: Eczema, Other Smoking Status: Never smoker - Surgical History General: Colonoscopy, EGD Eyes Ears Nose Throat (EENT): Cataracts Gynecologic: section, Tubal ligation Neurologic: Craniotomy, Other Orthopedic: Spine surgery Exam General: Alert, Oriented x3, Cooperative, No acute distress Mouth Openin Fingerbreadth Neck Mobility: Reduced Mallampati classification: II Respiratory: Lungs clear, Normal breath sounds, No respiratory distress Cardiovascular: Regular rate, Normal S1, Normal S2, No murmurs Plan Anesthesia Type: MAC, Supraclavicular Block (if needed) Regional Block: Per Surgeon's request for Post Op pain control Consent for Procedure(s) Verified and Reviewed: Yes Code Status: Attempt Resuscitation ASA classification: 2-Mild systemic disease Is this case an emergency?: No
[2020-04-21] MEDS ORDERED: LIDOCAINE-MPF 1% 30 ML VIAL ONE (10:37)
[2020-04-21] MEDS ORDERED: BUPIVACAINE 0.25%-EPI 1:200000 PF 30 ML VIAL SUBQ ONE ×2 (10:56→11:28)
[2020-04-21] MEDS ORDERED: LIDOCAINE 1% 50 ML MDV SUBQ ONE ×2 (10:56→11:28)
[2020-04-21] MEDS ORDERED: LACTATED RINGERS 1,000 ML IV SCH (11:00)
[2020-04-21] MEDS ORDERED: HYDROmorphone 2 MG TABLET PO PRN (11:54)
--- NOTE | 2020-04-21 11:56 | ANESTHESIA POST OP EVALUATION ---
Anesthesia Post Eval - Post Anesthesia Eval Vitals: Last Vital Signs Temp 36.8 C 04/21/20 09:32 Pulse 61 04/21/20 09:32 Resp 18 04/21/20 09:32 BP 151/77 H 04/21/20 09:32 Pulse Ox 98 04/21/20 09:32 CV Function Including HR & BP: positive: Stable Pain Control: positive: Satisfactory Nausea & Vomiting: positive: Negative Mental Status: positive: Baseline Respiratory Status: Airway Patent Hydration Status: Satisfactory Anesthesia Complications: positive: None
[2020-04-21 12:15] VITALS: BP 139/68
--- NOTE | 2020-04-21 16:58 | OPERATIVE REPORT ---
DATE OF SERVICE: 04/21/2020 Physician: Chaim Blackmon MD PREOPERATIVE DIAGNOSIS: Painful mass, right posterior forearm. POSTOPERATIVE DIAGNOSIS: Painful mass, right posterior forearm. PROCEDURE PERFORMED 1. Excision of 3 x 6 nodular adipose mass, right posterior forearm. 2. Intermediate repair 5 cm, right forearm incision. SURGEON: Chaim Blackmon MD ELECTRONIC CALIBRATION TECHNICIAN: None. ANESTHESIA: Monitored anesthesia care, IV sedation, local anesthesia. COMPLICATIONS: None. ESTIMATED BLOOD LOSS: None. SPECIMEN: Sent for pathology. DRAINS: None. INDICATIONS FOR PROCEDURE: Patient is a 79-year-old who states she had an injury to her right forearm approximately 1 year ago. She states she had an obvious bruise and then later developed a slowly growing tender mass. Clinically, she had a soft tissue mass consistent with lipoma. She presents for excision. Risks discussed, and alternatives discussed. All questions answered and consent obtained. DESCRIPTION OF PROCEDURE: Patient was properly identified and brought to the operating room and placed in supine position. Monitored anesthesia care was given as well as sedation. Her right forearm was circumferentially prepped and draped. Antibiotics were not given. She had a quite apparent sizable mass. An elliptical incision vertically was made. Dissection proceeded down to a clearly abnormal nodular, firm, adipose tissue. Of this nodular, firm adipose tissue 95% was carefully removed, sparing a superficial nerve, which lay lateral. Hemostasis was assured. Subcutaneous tissue was reapproximated with interrupted 4-0 Vicryl suture. Buried interrupted subdermal 4-0 Vicryl sutures were then placed. Skin was closed with a running 5-0 Prolene. A dressing was applied. She tolerated the procedure very well. TD: 04/21/2020 14:32 [facility]
== END 2020-04-21 09:26 | disposition home or self-care (01) ==
LOC: SDS 09:25
PROVIDERS: ATTEND Surgery
PROC: 0JBG0ZZ Excision of Right Lower Arm Subcutaneous Tissue and Fascia, Open Approach (ICD-10-PCS; principal; 2020-04-21 10:30)
DX: D17.21 Benign lipomatous neoplasm of skin and subcutaneous tissue of right arm (principal); G40.909 Epilepsy, unspecified, not intractable, without status epilepticus; E03.9 Hypothyroidism, unspecified; I49.9 Cardiac arrhythmia, unspecified; F41.8 Other specified anxiety disorders; H35.341 Macular cyst, hole, or pseudohole, right eye; K58.0 Irritable bowel syndrome with diarrhea; J32.8 Other chronic sinusitis; Z98.1 Arthrodesis status; Z86.79 Personal history of other diseases of the circulatory system
CPT/HCPCS: 25071; J7120

== ENCOUNTER 2020-06-12 10:44 | Outpatient (CLI) | payer MEDICARE, OTHER ==
--- NOTE | 2020-06-12 16:43 | DEXA Report ---
PROCEDURE: Dexa Spine and/or Hip INDICATIONS: POSTMENOPAUSAL TECHNIQUE: Dual energy x-ray absorptiometry (DXA) was performed on a [employer] System. Regions measur ed are the AP Spine, femoral neck, and if needed forearm. COMPARISON: 11/29/2017. FINDINGS: Lumbar Spine: Bone Mineral Density 0.971 g/cm/cm,T score -1.7, osteopenia Left Hip: Bone Mineral Density 0.617 g/cm/cm,T score -3.1, osteoporosis Left Femoral Neck: Bone Mineral Density 0.654 g/cm/cm, T score -2.8, osteoporosis (T score greater or equal to -1.0: NORMAL) (T score from -1.1 to -2.4: OSTEOPENIA) (T score less than or equal to -2.5 to: OSTEOPOROSIS) Impression: Osteoporosis. Bone marrow density decreased 8% compared to 11/29/2017. Patients with diagnosis of osteoporosis or osteopenia should have regular bone mineral density assess ment. For those eligible for Medicare, routine testing is allowed once every 2 years. Testing frequ ency can be increased for patients who have rapidly progressing disease or for those who are receivin g medical therapy to restore bone mass. Reviewed by: Ana Ocampo MD, PhD on 06/12/2020 4:42 PM PDT Approved by: Ana Ocampo MD, PhD on 06/12/2020 4:42 PM PDT Station ID: [id number]
== END 2020-06-12 10:45 | disposition home or self-care (01) ==
LOC: DI 10:44
PROVIDERS: ATTEND Family Medicine
DX: M81.0 Age-related osteoporosis without current pathological fracture (principal); N95.1 Menopausal and female climacteric states
CPT/HCPCS: 77080

== ENCOUNTER 2020-06-22 08:55 | Outpatient (CLI) | payer MEDICARE, OTHER ==
[2020-06-22 12:53] LABS: BASOPHILS % (AUTO) 0.7 %; EOSINOPHILS # (AUTO) 0.2 10^3/uL (0.0-0.7); EOSINOPHILS % (AUTO) 5.2 %; HGB - HEMOGLOBIN 13.4 g/dL (12.0-16.0); LYMPHOCYTES # (AUTO) 0.7 10^3/uL (1.5-3.5); LYMPHOCYTES % (AUTO) 17.2 %; MEAN CORPUSCULAR HEMOGLOBIN 29.5 pg (27.0-31.0); MEAN CORPUSCULAR HGB CONC 32.1 g/dL (32.0-36.0); MEAN CORPUSCULAR VOLUME 92.1 fL (81.0-99.0); MONOCYTES # (AUTO) 0.3 10^3/uL (0.0-1.0); MONOCYTES % (AUTO) 6.9 %; NEUTROPHILS # (AUTO) 2.8 10^3/uL (1.5-6.6); NEUTROPHILS % (AUTO) 69.8 %; PLT - PLATELET COUNT 160 10^3/uL (130-450); RED BLOOD COUNT 4.54 10^6/uL (4.20-5.40); RED CELL DISTRIBUTION WIDTH 13.9 % (12.0-15.0); WHITE BLOOD COUNT 4.1 x10^3/uL (4.8-10.8)
[2020-06-22 13:15] LABS: ALBUMIN 4.2 g/dL (3.2-5.5); ALBUMIN/GLOBULIN RATIO 1.8 (1.0-2.2); ALKALINE PHOSPHATASE 78 IU/L (42-121); ALT ALANINE AMINOTRANSFERASE 20 IU/L (10-60); AST ASPARTATE AMINOTRANSFERASE 24 IU/L (10-42); BILIRUBIN,TOTAL 1.2 mg/dL (0.2-1.0); BUN - BLOOD UREA NITROGEN 12 mg/dL (6-20); CALCIUM 8.8 mg/dL (8.5-10.3); CARBON DIOXIDE - CO2 27 mmol/L (21-32); CHLORIDE 102 mmol/L (101-111); CHOL/HDL RATIO 3.1 (<4.4); CHOLESTEROL 203 mg/dL; CREATININE 0.8 mg/dL (0.4-1.0); GLUCOSE 83 mg/dL (70-100); HDL CHOLESTEROL 65 mg/dL; LDL CHOLESTEROL,CALCULATED 123 mg/dL; LDL/HDL RATIO 1.9 (<4.4); MAGNESIUM 2.2 mg/dL (1.7-2.8); SODIUM 137 mmol/L (135-145); TOTAL PROTEIN 6.6 g/dL (6.7-8.2); VLDL CHOLESTEROL 15 mg/dL
[2020-06-22 16:07] LABS: FREE T4 (FREE THYROXINE) 0.7 ng/dL (0.58-1.64)
== END 2020-06-22 23:59 | disposition home or self-care (01) ==
LOC: LAB.WCP 08:55
PROVIDERS: ATTEND Internal Medicine
DX: G40.909 Epilepsy, unspecified, not intractable, without status epilepticus (principal); E03.9 Hypothyroidism, unspecified; Z13.220 Encounter for screening for lipoid disorders; M81.0 Age-related osteoporosis without current pathological fracture
CPT/HCPCS: 36415; 80053; 80061; 82306; 83721; 83735; 84100; 84439; 84443; 85025

== ENCOUNTER 2020-07-15 12:11 | Outpatient (CLI) | payer MEDICARE, OTHER ==
--- NOTE | 2020-07-15 13:12 | CT Report ---
PROCEDURE: Sinuses INDICATIONS: CHRONIC SINUSITIS TECHNIQUE: Noncontrast 3.0 mm axial images acquired from the frontal sinuses to the mid-sella, with coronal and sagittal reformats. For radiation dose reduction, the following was used: automated exposure control , adjustment of mA and/or kV according to patient size. COMPARISON: 07/19/2018 FINDINGS: Image quality: Excellent. Maxillary Sinuses: No bony remodeling or destruction. Sinuses are clear. Ethmoid Air Cells: No bony remodeling or destruction. Sinuses are clear. Sphenoid Sinuses: No bony remodeling or destruction. Sinuses are clear. Frontal Sinuses: No bony remodeling or destruction. Sinuses are clear. Ostiomeatal Complexes: Ostiomeatal complexes are patent. No Sharon cells. Miscellaneous: Visualized intra-orbital contents are normal. 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 There is moderate leftward nasal septal deviation. Right-sided craniotomy changes are noted. There is a right carotid terminus region aneurysm clip seen . Relatively prominent TMJ degenerative change can be seen. IMPRESSION: No significant active paranasal sinus disease is seen. Bilateral krysta bullosa, with moderate leftward nasal septal deviation. Right-sided craniotomy changes with a right-sided aneurysm clip. Relatively prominent TMJ degenerative change. Reviewed by: Cornelius Hui MD on 07/15/2020 12:10 PM [facility] Approved by: Cornelius Hui MD on 07/15/2020 12:10 PM [facility] Station ID: [id number]
== END 2020-07-15 12:12 | disposition home or self-care (01) ==
LOC: DI 12:11
PROVIDERS: ATTEND Internal Medicine
DX: J34.89 Other specified disorders of nose and nasal sinuses (principal); J34.2 Deviated nasal septum; R51.9 Headache, unspecified; M26.609 Unspecified temporomandibular joint disorder, unspecified side; Z95.828 Presence of other vascular implants and grafts

== ENCOUNTER 2020-07-21 07:00 | Outpatient (CLI) | payer MEDICARE, OTHER | END 2020-07-21 23:59 | disposition home or self-care (01) | LOC: COV 07:00 | PROVIDERS: ATTEND Family Medicine | DX: R05 Cough (principal); R53.83 Other fatigue; R07.0 Pain in throat; R19.7 Diarrhea, unspecified; R09.81 Nasal congestion; J34.89 Other specified disorders of nose and nasal sinuses; R11.0 Nausea; Z20.828 Contact with and (suspected) exposure to other viral communicable diseases ==

== ENCOUNTER 2020-07-29 08:00 | Outpatient (CLI) | payer MEDICARE, OTHER | END 2020-07-29 23:59 | disposition home or self-care (01) | LOC: LAB.R 08:00 | PROVIDERS: ATTEND Family Medicine | DX: R05 Cough (principal); Z20.828 Contact with and (suspected) exposure to other viral communicable diseases | CPT/HCPCS: 87275; 87276; U0004 ==

== ENCOUNTER 2020-07-29 10:01 | Outpatient (CLI) | payer MEDICARE, OTHER ==
--- NOTE | 2020-07-29 13:59 | XRAY Report ---
PROCEDURE: Chest 2 View X-Ray INDICATIONS: Productive cough TECHNIQUE: 2 view(s) of the chest. COMPARISON: None. FINDINGS: Surgical changes and devices: None. Lungs and pleura: No pleural effusions or pneumothorax. Lungs are clear. Mediastinum: Mediastinal contours are normal. Heart size is normal. Bones and chest wall: No suspicious bony abnormalities. Soft tissues appear unremarkable. IMPRESSION: No acute cardiopulmonary process demonstrated radiographically. Reviewed by: Flaquito Salmeron MD on 07/29/2020 12:58 PM [facility] Approved by: Flaquito Salmeron MD on 07/29/2020 12:58 PM [facility] Station ID: [id number]
== END 2020-07-29 23:59 | disposition home or self-care (01) ==
LOC: DI.N 10:01
PROVIDERS: ATTEND Family Medicine
DX: R05 Cough (principal); Z20.828 Contact with and (suspected) exposure to other viral communicable diseases
CPT/HCPCS: 71046; 87275; 87276; U0004

== ENCOUNTER → 2020-08-01 | Outpatient (CLI) | payer MEDICARE, OTHER | LOC: LAB.R 08:00 | PROVIDERS: ATTEND Family Medicine | DX: R30.0 Dysuria (principal) | CPT/HCPCS: 87086 ==

== ENCOUNTER 2020-08-03 10:02 | Emergency (ER) | payer MEDICARE, OTHER ==
[2020-08-03] MEDS ORDERED: diphenhydrAMINE INJ 50 MG/ML VIAL IVP STA (10:47)
[2020-08-03] MEDS ORDERED: methylPREDNISolone SUCCINATE 125 MG/2 ML VIAL IVP STA (10:47)
--- NOTE | 2020-08-03 10:48 | ED Physician Documentation ---
PD HPI CHEST PAIN - Stated complaint Stated Complaint: CHEST PX - Chief complaint Chief Complaint: Cardiac - History obtained from History obtained from: Patient - History of Present Illness Timing - onset: Enter time (0100), Last night Timing - onset during: Rest Timing - duration: Minutes (15) Timing - details: Abrupt onset, Still present Pain level max: 10 Pain level now: 2 Quality: Pressure, Tightness Location: Substernal, Right chest Radiation: Neck Improved by: Rest Worsened by: Movement Associated symptoms: Shortness of air, Diaphoresis, Nausea, Feeling faint / dizzy Similar symptoms before: Diagnosis (esophagitis) Recently seen: Clinic - Additional information Additional information: Patient was in her home last night at about 1 AM she developed severe pain in her upper chest on the right side radiating to the right side of her neck. She states the pain was very severe and it lasted about 10 to 15 minutes. She has had similar pain previously with her esophagus but never this bad. She has been taking some Macrobid and she believes the Macrobid is the culprit in this and that it appears to irritate her esophagus. She is breaking the pills apart and using them in liquid. 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) Endocrine/Autoimmune: HyPOthyroidism GI: Other REIMBURSEMENT CONSULTANT: None : None HEENT: Chronic vision loss Psych: Depression Musculoskeletal: Chronic back pain, Other Derm: Eczema, Other - Past Surgical History Past Surgical History: Yes General: Colonoscopy, EGD Ortho: Spine surgery /REIMBURSEMENT CONSULTANT: section, Tubal ligation Neuro: Craniotomy, Other HEENT: Cataracts - Present Medications Home Medications: Ambulatory Orders Medication Instructions Recorded Confirmed Levothyroxine [Synthroid] 75 mcg PO QDAC 01/06/13 08/03/20 HYDROmorphone [Dilaudid] 1 mg PO Q4H PRN 04/13/20 04/13/20 Nitrofurantoin [Macrobid] 1 tab PO BID 08/03/20 08/03/20 Sucralfate [Carafate] 1 gm PO ACHS #60 tablet 08/03/20 - Allergies Allergies/Adverse Reactions: Allergies Allergy/AdvReac Type Severity Reaction Status Date / Time acetaminophen [From Vicodin] Allergy Severe Rash Verified 08/03/20 10:14 benzocaine Allergy Severe Respiratory Verified 08/03/20 10:14 carbamazepine [From Tegretol] Allergy Severe Respiratory Verified 08/03/20 10:14 codeine [Codeine] Allergy Severe Respiratory Verified 08/03/20 10:14 ephedrine [Ephedrine] Allergy Severe Respiratory Verified 08/03/20 10:14 hydrocodone bitartrate * Allergy Severe Respiratory Verified 08/03/20 10:14 [From Vicodin] lamotrigine [From Lamictal] Allergy Severe Respiratory Verified 08/03/20 10:14 oxycodone [Oxycodone] Allergy Severe Respiratory Verified 08/03/20 10:14 Penicillins Allergy Severe Rash Verified 08/03/20 10:14 Sulfa (Sulfonamide Allergy Severe Rash Verified 08/03/20 10:14 Antibiotics) ciprofloxacin [From Cipro] Allergy seizures Verified 08/03/20 10:14 iodine Allergy Rash Verified 08/03/20 10:14 methadone Allergy psychotic Verified 08/03/20 10:14 break adhesive AdvReac Itching Verified 08/03/20 10:14 lorazepam [From Ativan] AdvReac Hallucinati Verified 08/03/20 10:14 ons - Social History Does the pt smoke?: No Smoking Status: Never smoker Does the pt drink ETOH?: No Does the pt have substance abuse?: No - Immunizations Immunizations are current?: Yes - POLST Patient has POLST: No PD ED PE NORMAL - Vitals Vital signs reviewed: Yes (hypertensive mild ) - General General: Alert and oriented X 3, No acute distress, Well developed/nourished - HEENT HEENT: Atraumatic, PERRL, EOMI - Neck Neck: Supple, no meningeal sign, No bony TTP - Cardiac Cardiac: RRR, No murmur - Respiratory Respiratory: No respiratory distress, Clear bilaterally - Abdomen Abdomen: Normal bowel sounds, Soft, Non tender, Non distended, No organomegaly - Back Back: No CVA TTP, No spinal TTP - Derm Derm: Normal color, Warm and dry, No rash - Extremities Extremities: No deformity, No edema - Neuro Neuro: Alert and oriented X 3, sales assistants and salespersons 2-12 intact, Normal speech Eye Opening: Spontaneous Motor: Obeys Commands Verbal: Oriented GCS Score: 15 - Psych Psych: Normal mood, Normal affect Results - Vitals Vitals: Vital Signs - 24 hr 08/03/20 08/03/20 08/03/20 10:11 10:59 11:13 Temperature 36.6 C Heart Rate 79 67 79 Respiratory 18 16 18 Rate Blood Pressure 130/85 H 155/83 H 142/76 H O2 Saturation 100 100 100 08/03/20 08/03/20 08/03/20 11:30 12:00 12:30 Temperature Heart Rate 80 76 78 Respiratory 19 21 20 Rate Blood Pressure 132/88 H 138/76 H 128/72 O2 Saturation 98 98 99 08/03/20 08/03/20 13:00 13:30 Temperature Heart Rate 70 79 Respiratory 18 19 Rate Blood Pressure 138/75 H 122/69 O2 Saturation 98 99 Oxygen O2 Source Room air - EKG (time done) 1008 Rate: Rate (enter#) (80) Rhythm: LAE Intervals: Wide QRS Compare to prior EKG: Unchanged from prior EKG (SPT 04-02-2019 no changes) Computer interpretation: Agree with computer - Labs Labs: Laboratory Tests 08/03/20 08/03/20 08/03/20 10:20 10:20 10:20 WBC 6.6 RBC 4.58 Hgb 14.0 Hct 42.1 MCV 91.9 MCH 30.6 MCHC 33.3 RDW 13.2 Plt Count 127 L MPV 10.9 H Neut # (Auto) 5.4 Lymph # (Auto) 0.4 L Finney # (Auto) 0.5 Eos # (Auto) 0.3 Baso # (Auto) 0.0 Absolute Nucleated RBC 0.00 Nucleated RBC % 0.0 Sodium 138 Potassium 4.2 Chloride 102 Carbon Dioxide 26 Anion Gap 10.0 BUN 9 Creatinine 0.8 Estimated GFR (MDRD) 70 L Glucose 105 H Calcium 9.3 Total Bilirubin 1.1 H AST 21 ALT 15 Alkaline Phosphatase 77 Troponin I High Sens 2.5 Total Protein 7.6 Albumin 4.7 Globulin 2.9 Albumin/Globulin Ratio 1.6 Lipase 31 - Rads (name of study) CT angio chest Radiology: Prelim report reviewed (Impression: 1. No pulmonary embolism. Lungs are clear. 2. 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 Her exam is benign her laboratory studies today are benign as were a plain film chest. My concern for this patient was the possibility of aortic dissection and an aortogram was obtained demonstrating a stable 3.8 cm aortic root. The patient was subsequently administered viscous lidocaine and Mylanta with some improvement in her pain. She has previously been on Pepcid we will place her back on Pepcid and give her a prescription for some Carafate. The patient has been taking some Macrobid and she believes this may be the culprit and we will discontinue the Macrobid. Departure - Departure Disposition: 01 Home, Self Care Clinical Impression: Esophagitis Condition: Stable Instructions: ED GERD Follow-Up: BRENT ARCHULETA MD [Primary Care Provider] - Prescriptions: Sucralfate [Carafate] 1 gm PO ACHS #60 tablet Discharge Date/Time: 08/03/20 13:55
[2020-08-03 10:55] LABS: BASOPHILS % (AUTO) 0.6 %; EOSINOPHILS # (AUTO) 0.3 10^3/uL (0.0-0.7); LYMPHOCYTES # (AUTO) 0.4 10^3/uL (1.5-3.5); LYMPHOCYTES % (AUTO) 6.2 %; MEAN CORPUSCULAR HEMOGLOBIN 30.6 pg (27.0-31.0); MEAN CORPUSCULAR HGB CONC 33.3 g/dL (32.0-36.0); MEAN CORPUSCULAR VOLUME 91.9 fL (81.0-99.0); MEAN PLATELET VOLUME 10.9 fL (7.9-10.8); MONOCYTES # (AUTO) 0.5 10^3/uL (0.0-1.0); MONOCYTES % (AUTO) 6.8 %; NEUTROPHILS # (AUTO) 5.4 10^3/uL (1.5-6.6); NEUTROPHILS % (AUTO) 81.1 %; PLT - PLATELET COUNT 127 10^3/uL (130-450); RED BLOOD COUNT 4.58 10^6/uL (4.20-5.40); RED CELL DISTRIBUTION WIDTH 13.2 % (12.0-15.0); WHITE BLOOD COUNT 6.6 x10^3/uL (4.8-10.8)
[2020-08-03 10:58] LABS: ALBUMIN 4.7 g/dL (3.2-5.5); ALBUMIN/GLOBULIN RATIO 1.6 (1.0-2.2); BILIRUBIN,TOTAL 1.1 mg/dL (0.2-1.0); CALCIUM 9.3 mg/dL (8.5-10.3); CREATININE 0.8 mg/dL (0.4-1.0); TOTAL PROTEIN 7.6 g/dL (6.7-8.2)
[2020-08-03] MEDS ORDERED: IOVERSOL 320 100 ML VIAL IVP ONE ×2 (11:02→17:59)
--- NOTE | 2020-08-03 11:19 | XRAY Report ---
PROCEDURE: Chest 1 View X-Ray INDICATIONS: Chest pain TECHNIQUE: One view of the chest was acquired. COMPARISON: 07/29/2020 FINDINGS: Surgical changes and devices: None. Lungs and pleura: No pleural effusions or pneumothorax. Lungs are clear. Mediastinum: Mediastinal contours appear normal. Heart size is normal. Bones and chest wall: No suspicious bony lesions. Peripherally calcified lesion projecting over the left upper quadrant of the abdomen is stable compared to prior examinations. Overlying soft tissues a ppear unremarkable. IMPRESSION: No acute cardiopulmonary disease process. Reviewed by: Ana Ocampo MD, PhD on 08/03/2020 11:18 AM [facility] Approved by: Ana Ocampo MD, PhD on 08/03/2020 11:18 AM [facility] Station ID: [id number]
[2020-08-03] MEDS ORDERED: HYDROmorphone 2 MG TABLET PO STA (12:08)
--- NOTE | 2020-08-03 12:34 | CT Report ---
PROCEDURE: ANGIO CHEST W/WO INDICATIONS: History of aneurysms right chest pain CONTRAST: IV CONTRAST: Optiray 320 ml: 100 PO CONTRAST: *NO PO CONTRAST TECHNIQUE: After the administration of intravenous contrast, 2 mm thick sections acquired from the pulmonary api rajwinder to the posterior costophrenic angles. 3-dimensional maximum intensity projection (MIP) coronal a nd sagittal reformats were then acquired through the thorax. For radiation dose reduction, the follow ing was used: automated exposure control, adjustment of mA and/or kV according to patient size. COMPARISON: CT chest 12/27/2017, CT abdomen 10/31/2018 FINDINGS: Image quality: Excellent. Pulmonary arteries: Pulmonary arteries are normal in size, and demonstrate no intraluminal filling d efects to suggest central pulmonary embolism. Lungs and pleura: Lungs are clear. No pleural effusions or pneumothorax. Central and peripheral ai rways are patent. Mediastinum: Heart size is normal, without pericardial effusion. No mediastinal or hilar adenopathy . Ascending thoracic aorta measures approximately 3.8 cm, unchanged compared to 2018. Esophagus is n ormal in caliber, without hiatal hernia. Bones and chest wall: No suspicious bony lesions. Ribs and thoracic spine appear intact throughout. The thyroid is normal. No axillary or supraclavicular adenopathy. Abdomen: Unchanged calcified splenic artery aneurysm. Stable appearance of left upper pole renal cys t. Otherwise, visualized upper abdominal solid organs appear normal in the early arterial phase of en hancement. IMPRESSION: 1. No pulmonary embolism. Lungs are clear. 2. Ascending thoracic aorta measures 3.8 cm, unchanged. Reviewed by: Meka Back MD on 08/03/2020 12:33 PM PST Approved by: Meka Back MD on 08/03/2020 12:33 PM PST Station ID: [id number]
[2020-08-03] MEDS ORDERED: LIDOCAINE VISCOUS 2% 15 ML UDC MM STA (12:49)
[2020-08-03] MEDS ORDERED: MAG HYDROX/AL HYDROX/SIMETH 30 ML UDC PO STA (12:50)
[2020-08-03 13:46] VITALS: BP 122/69
== END 2020-08-03 13:55 | disposition home or self-care (01) ==
LOC: ED 10:02
DX: K20.90 Esophagitis, unspecified without bleeding (principal); I72.8 Aneurysm of other specified arteries
CPT/HCPCS: 36415; 71045; 71275; 80053; 83690; 84484; 85025; 93005; 96374; 96375; 99284; A9270; J1200; Q9967

== ENCOUNTER 2020-09-17 08:00 | Outpatient (CLI) | payer MEDICARE, OTHER ==
[2020-09-17 18:23] LABS: GLUCOSE, URINE (UA) NEGATIVE (NEGATIVE); KETONES,URINE (UA) 15 mg/dL (NEGATIVE); LEUKOCYTE ESTERASE, URINE NEGATIVE (NEGATIVE); NITRITE,URINE POSITIVE (NEGATIVE); OCCULT BLOOD,URINE TRACE-INTA (NEGATIVE); PROTEIN,URINE 30 mg/dL (NEGATIVE); UROBILINOGEN,URINE 1 (NORMAL) E.U./dL (NORMAL)
[2020-09-17 18:31] LABS: AMORPHOUS SEDIMENT,UR Marked /LPF; BACTERIA,URINE Rare /HPF (None Seen); CLARITY,URINE SL. CLOUDY (CLEAR); RBC,URINE 0-5 /HPF (0-5); SQUAMOUS EPITHELIAL CELL,UR FEW Squamous (<= Few)
[2020-09-17 18:34] LABS: BILIRUBIN,URINE NEGATIVE (NEGATIVE); ICTOTEST,URINE NEGATIVE
[2020-09-17 18:35] LABS: CALCIUM 9.3 mg/dL (8.5-10.3); CREATININE 0.8 mg/dL (0.4-1.0)
== END 2020-09-17 23:59 ==
LOC: LAB.WCP 08:00
PROVIDERS: ATTEND Internal Medicine
DX: Z01.84 Encounter for antibody response examination (principal); R30.0 Dysuria; J06.9 Acute upper respiratory infection, unspecified
CPT/HCPCS: 36415; 80048; 81001; 86769; 87086

== ENCOUNTER 2020-10-27 08:00 | Outpatient (CLI) | payer MEDICARE, OTHER ==
[2020-10-27 18:22] LABS: BASOPHILS % (AUTO) 0.5 %; EOSINOPHILS # (AUTO) 0.1 10^3/uL (0.0-0.7); EOSINOPHILS % (AUTO) 2.3 %; HCT - HEMATOCRIT 41.7 % (37.0-47.0); HGB - HEMOGLOBIN 13.7 g/dL (12.0-16.0); LYMPHOCYTES # (AUTO) 0.8 10^3/uL (1.5-3.5); LYMPHOCYTES % (AUTO) 13.8 %; MEAN CORPUSCULAR HEMOGLOBIN 30.8 pg (27.0-31.0); MEAN CORPUSCULAR HGB CONC 32.9 g/dL (32.0-36.0); MEAN CORPUSCULAR VOLUME 93.7 fL (81.0-99.0); MEAN PLATELET VOLUME 11.7 fL (7.9-10.8); MONOCYTES # (AUTO) 0.4 10^3/uL (0.0-1.0); MONOCYTES % (AUTO) 7.7 %; NEUTROPHILS # (AUTO) 4.3 10^3/uL (1.5-6.6); NEUTROPHILS % (AUTO) 75.5 %; PLT - PLATELET COUNT 179 10^3/uL (130-450); RED BLOOD COUNT 4.45 10^6/uL (4.20-5.40); RED CELL DISTRIBUTION WIDTH 14.1 % (12.0-15.0); WHITE BLOOD COUNT 5.7 x10^3/uL (4.8-10.8)
[2020-10-27 18:31] LABS: ALBUMIN 4.7 g/dL (3.2-5.5); BILIRUBIN,TOTAL 0.8 mg/dL (0.2-1.0); CALCIUM 8.8 mg/dL (8.5-10.3); CREATININE 0.7 mg/dL (0.4-1.0); POTASSIUM 3.6 mmol/L (3.5-5.0)
[2020-10-27 18:48] LABS: THYROID STIMULATING HORMONE 6.97 uIU/mL (0.34-5.60)
[2020-10-27 19:29] LABS: FREE T4 (FREE THYROXINE) 0.91 ng/dL (0.58-1.64)
== END 2020-10-27 23:59 | disposition home or self-care (01) ==
LOC: LAB.WCP 08:00
PROVIDERS: ATTEND Nurse Practitioner Family
DX: R30.0 Dysuria (principal); E03.9 Hypothyroidism, unspecified
CPT/HCPCS: 36415; 80053; 84439; 84443; 85025; 87086; 87181

== ENCOUNTER 2020-11-12 11:07 | Outpatient (CLI) | payer MEDICARE, OTHER ==
--- NOTE | 2020-11-12 11:40 | CT Report ---
PROCEDURE: HEAD WO INDICATIONS: RT SIDE HEADACHE, SEIZURE DISORDER TECHNIQUE: Noncontrast 4.5 mm thick angled axial sections acquired from the foramen magnum to the vertex. For r adiation dose reduction, the following was used: automated exposure control, adjustment of mA and/or kV according to patient size. COMPARISON: Sinus CT. FINDINGS: Image quality: Excellent. CSF spaces: Basal cisterns are patent. No extra-axial fluid collections. Ventricles are normal in size and shape. Brain: No midline shift. No intracranial masses or hemorrhage. Bender-white matter interface is norm al. Skull and face: Calvarium and visualized facial bones are intact on the left but there has been righ t-sided craniotomy and aneurysm clipping, with encephalomalacia involving the right temporal region i ndicating long-standing process., without suspicious lesions. Sinuses: Visualized sinuses and mastoids are clear. IMPRESSION: No acute disease. Long-standing encephalomalacia right temporal region associated with r ight-sided craniotomy and aneurysm clipping. No sign of new aneurysm hemorrhage. Reviewed by: Jin Beasley MD on 11/12/2020 11:39 AM PDT Approved by: Jin Beasley MD on 11/12/2020 11:39 AM PDT Station ID: [id number]
== END 2020-11-12 11:08 | disposition home or self-care (01) ==
LOC: DI 11:07
PROVIDERS: ATTEND Internal Medicine
DX: G40.909 Epilepsy, unspecified, not intractable, without status epilepticus (principal); G93.89 Other specified disorders of brain

== ENCOUNTER 2020-11-13 11:00 | Outpatient (CLI) | payer MEDICARE, OTHER ==
--- OUTSIDE RECORDS SUMMARY | 2020-11-18 02:30 | EXTERNAL MEDICAL SUMMARY RPT | Continuity of Care Document ---
: Demographics Phone Unavailable Preferred Language Unknown Marital Status Unknown Bahai Affiliation Unknown Race Unknown Ethnic Group Unknown Author Organization [place] Address [address] [id number] Phone Social History date description facility [phone]
== END 2020-11-13 23:59 | disposition home or self-care (01) ==
LOC: LAB.R 11:00
PROVIDERS: ATTEND Family Medicine
DX: H92.09 Otalgia, unspecified ear (principal); Z20.822 Contact with and (suspected) exposure to COVID-19

== ENCOUNTER 2020-12-29 12:07 | Outpatient (CLI) | payer MEDICARE, OTHER ==
--- NOTE | 2020-12-29 16:11 | XRAY Report ---
PROCEDURE: Foot 3 View RT INDICATIONS: PAIN 2 MT SHAFT R [id number] TECHNIQUE: 3 views of the foot were acquired. COMPARISON: None FINDINGS: Bones: No fractures or dislocations. There is a small cortical protrusions in the midportion of the second metatarsal. It is somewhat heterogeneous in appearance. Soft tissues: No tibiotalar joint effusion. Achilles tendon appears normal. IMPRESSION: Small cortical protrusion of the second metatarsal. This could represent a focus of exostosis, healin g fracture or potentially nonossifying fibroma, although location is somewhat atypical. Given presenc e of pain, MRI foot without contrast is recommended for further evaluation. Reviewed by: Meka Back MD on 12/29/2020 4:10 PM PDT Approved by: Meka Back MD on 12/29/2020 4:10 PM PDT Station ID: [id number]
== END 2020-12-29 12:08 | disposition home or self-care (01) ==
LOC: DI 12:07
PROVIDERS: ATTEND Podiatrist
DX: M79.671 Pain in right foot (principal)

== ENCOUNTER 2021-02-01 09:59 | Outpatient (CLI) | payer MEDICARE, OTHER | END 2021-02-01 10:00 | disposition home or self-care (01) | LOC: LAB 09:59 | DX: Z01.812 Encounter for preprocedural laboratory examination (principal); Z20.822 Contact with and (suspected) exposure to COVID-19 ==

== ENCOUNTER 2021-03-10 15:59 | Outpatient (CLI) | payer MEDICARE, OTHER ==
--- NOTE | 2021-03-11 09:48 | XRAY Report ---
PROCEDURE: Tib/Fib RT INDICATIONS: R LOWER LEG PX TECHNIQUE: 2 views of the tibia and fibula were acquired. COMPARISON: None. FINDINGS: Bones: No acute fractures or dislocations. No suspicious bony lesions. Soft tissues: No suspicious soft tissue calcifications or masses. IMPRESSION: No acute osseous abnormality. If there is clinical concern or persistent symptoms, additional imaging such as repeat radiographs or advanced imaging (e.g. CT, MRI) may be helpful for further evaluation. Reviewed by: Jas Melendez MD on 03/11/2021 9:46 AM PDT Approved by: Jas Melendez MD on 03/11/2021 9:46 AM PDT Station ID: [id number]
== END 2021-03-10 23:59 | disposition home or self-care (01) ==
LOC: DI.N 15:59
PROVIDERS: ATTEND Nurse Practitioner
DX: M79.661 Pain in right lower leg (principal)

== ENCOUNTER 2021-03-15 09:22 | Emergency (ER) | payer MEDICARE, OTHER ==
[2021-03-15] MEDS ORDERED: PrednisoLONE 15 MG/5 ML SYRUP SYR PO STA (10:05)
--- NOTE | 2021-03-15 10:05 | ED Physician Documentation ---
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 It started on the right medial calf. She was sent for an x-ray of the tib-fib which was negative. Now the pain is spreading up to the thigh. No associated chest pain or trouble breathing. 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) Endocrine/Autoimmune: HyPOthyroidism GI: Other FILTER OPERATOR: None : None HEENT: Chronic vision loss Psych: Depression Musculoskeletal: Chronic back pain, Other Derm: Eczema, Other - Past Surgical History Past Surgical History: Yes General: Colonoscopy, EGD Ortho: Spine surgery /FILTER OPERATOR: section, Tubal ligation Neuro: Craniotomy, Other HEENT: Cataracts - Present Medications Home Medications: Ambulatory Orders Medication Instructions Recorded Confirmed Levothyroxine [Synthroid] 75 mcg PO QDAC 01/06/13 08/03/20 HYDROmorphone [Dilaudid] 1 mg PO Q4H PRN 04/13/20 04/13/20 Nitrofurantoin [Macrobid] 1 tab PO BID 08/03/20 08/03/20 Sucralfate [Carafate] 1 gm PO ACHS #60 tablet 08/03/20 predniSONE [Deltasone] 20 mg PO DAILY #11 tab 03/15/21 - Allergies Allergies/Adverse Reactions: Allergies Allergy/AdvReac Type Severity Reaction Status Date / Time acetaminophen [From Vicodin] Allergy Severe Rash Verified 03/15/21 09:41 benzocaine Allergy Severe Respiratory Verified 03/15/21 09:41 carbamazepine [From Tegretol] Allergy Severe Respiratory Verified 03/15/21 09:41 codeine [Codeine] Allergy Severe Respiratory Verified 03/15/21 09:41 ephedrine [Ephedrine] Allergy Severe Respiratory Verified 03/15/21 09:41 hydrocodone bitartrate * Allergy Severe Respiratory Verified 03/15/21 09:41 [From Vicodin] lamotrigine [From Lamictal] Allergy Severe Respiratory Verified 03/15/21 09:41 oxycodone [Oxycodone] Allergy Severe Respiratory Verified 03/15/21 09:41 Penicillins Allergy Severe Rash Verified 03/15/21 09:41 Sulfa (Sulfonamide Allergy Severe Rash Verified 03/15/21 09:41 Antibiotics) ciprofloxacin [From Cipro] Allergy seizures Verified 03/15/21 09:41 iodine Allergy Rash Verified 03/15/21 09:41 methadone Allergy psychotic Verified 03/15/21 09:41 break adhesive AdvReac Itching Verified 03/15/21 09:41 lorazepam [From Ativan] AdvReac Hallucinati Verified 03/15/21 09:41 ons - Social History Does the pt smoke?: No Smoking Status: Never smoker Does the pt drink ETOH?: No Does the pt have substance abuse?: No - Immunizations Immunizations are current?: Yes - POLST Patient has POLST: No PD ED PE NORMAL - Vitals Vital signs reviewed: Yes - General General: Alert and oriented X 3, No acute distress - HEENT HEENT: PERRL, EOMI - Neck Neck: Supple, no meningeal sign, No bony TTP - Extremities Extremities: Other (Right leg is slightly pale compared to the left, mildly tender to the calf and thigh. No obvious asymmetry otherwise.) - Neuro Neuro: Alert and oriented X 3, Normal speech Results - Vitals Vitals: Vital Signs - 24 hr 03/15/21 09:38 Temperature 36.4 C L Heart Rate 57 L Respiratory 16 Rate Blood Pressure 134/78 H O2 Saturation 100 Oxygen O2 Source Room air PD MEDICAL DECISION MAKING - ED course ED course: DVT sono negative. Excellent pedal pulses. There was some discoloration of her leg on initial exam but she had been hanging the other leg and once there were both on the bed for a while the discoloration disappeared. Departure - Departure Disposition: 01 Home, Self Care Clinical Impression: Right leg pain Condition: Good Record reviewed to determine appropriate education?: Yes Instructions: ED Muscle Pain Leg Cramps Prescriptions: predniSONE [Deltasone] 20 mg PO DAILY #11 tab Comments: Prescription was sent electronically to [facility] in [place]. Follow-up with your doctor next week as scheduled. Return for new or worsening symptoms.
[2021-03-15] MEDS ORDERED: HYDROmorphone 2 MG TABLET PO STA (10:08)
[2021-03-15 11:20] VITALS: BP 137/74
--- NOTE | 2021-03-15 12:41 | Ultrasound Report ---
PROCEDURE: Duplex Ext Veins Right INDICATIONS: RLE pain TECHNIQUE: Real-time imaging, as well as color and pulse Doppler interrogation, were performed of the lower extr emity deep veins from the inguinal ligament to the popliteal fossa. COMPARISON: None. FINDINGS: The deep veins are normally compressible, and free of intraluminal thrombus. Color and pu lse Doppler demonstrate normal phasic intraluminal flow. There is normal augmentation response to di stal compression maneuver. IMPRESSION: No evidence of deep vein thrombosis involving the right lower extremity. Reviewed by: Ana Ocampo MD, PhD on 03/15/2021 12:39 PM PDT Approved by: Ana Ocampo MD, PhD on 03/15/2021 12:39 PM PDT Station ID: [id number]
== END 2021-03-15 11:26 | disposition home or self-care (01) ==
LOC: ED 09:22
DX: M79.661 Pain in right lower leg (principal)
CPT/HCPCS: 93971; 99283; 99284; A9270; J7510

== ENCOUNTER 2021-03-26 11:03 | Outpatient (CLI) | payer MEDICARE, OTHER ==
--- NOTE | 2021-03-26 16:39 | XRAY Report ---
PROCEDURE: Knee 2 View RT INDICATIONS: KNEE PAIN, RIGHT TECHNIQUE: 2 views of the right knee(s) were acquired. COMPARISON: None. FINDINGS: Bones: No fractures or dislocations. No suspicious bony lesions. Mild tricompartmental osteoarthrit is. Soft tissues: No joint effusion. No suspicious soft tissue calcifications. Chondrocalcinosis. IMPRESSION: 1. Mild tricompartmental osteophytosis. 2. Chondrocalcinosis. Finding is nonspecific but differential includes CPPD, hyperparathyroidism and hemachromatosis. Reviewed by: Ana Ocampo MD, PhD on 03/26/2021 4:38 PM PDT Approved by: Ana Ocampo MD, PhD on 03/26/2021 4:38 PM PDT Station ID: [id number]
== END 2021-03-26 11:04 | disposition home or self-care (01) ==
LOC: DI.N 11:03
PROVIDERS: ATTEND Internal Medicine
DX: M17.11 Unilateral primary osteoarthritis, right knee (principal); M11.261 Other chondrocalcinosis, right knee

== ENCOUNTER 2021-06-14 15:05 | Outpatient (CLI) | payer MEDICARE, OTHER ==
[2021-06-14 18:08] LABS: BASOPHILS % (AUTO) 0.7 %; EOSINOPHILS # (AUTO) 0.2 10^3/uL (0.0-0.7); EOSINOPHILS % (AUTO) 3.5 %; HCT - HEMATOCRIT 43.3 % (37.0-47.0); HGB - HEMOGLOBIN 13.9 g/dL (12.0-16.0); LYMPHOCYTES # (AUTO) 0.7 10^3/uL (1.5-3.5); LYMPHOCYTES % (AUTO) 15.4 %; MEAN CORPUSCULAR HEMOGLOBIN 29.8 pg (27.0-31.0); MEAN CORPUSCULAR HGB CONC 32.1 g/dL (32.0-36.0); MEAN CORPUSCULAR VOLUME 92.9 fL (81.0-99.0); MEAN PLATELET VOLUME 11.3 fL (7.9-10.8); MONOCYTES # (AUTO) 0.4 10^3/uL (0.0-1.0); MONOCYTES % (AUTO) 7.9 %; NEUTROPHILS # (AUTO) 3.3 10^3/uL (1.5-6.6); NEUTROPHILS % (AUTO) 72.3 %; PLT - PLATELET COUNT 161 10^3/uL (130-450); RED BLOOD COUNT 4.66 10^6/uL (4.20-5.40); RED CELL DISTRIBUTION WIDTH 13.9 % (12.0-15.0); WHITE BLOOD COUNT 4.6 x10^3/uL (4.8-10.8)
[2021-06-14 18:25] LABS: ALBUMIN 4.7 g/dL (3.2-5.5); BILIRUBIN,TOTAL 1.1 mg/dL (0.2-1.0); CALCIUM 9.1 mg/dL (8.5-10.3); CREATININE 0.7 mg/dL (0.4-1.0); TOTAL PROTEIN 7.1 g/dL (6.7-8.2)
== END 2021-06-14 23:59 | disposition home or self-care (01) ==
LOC: LAB.WCP 15:05
PROVIDERS: ATTEND Internal Medicine
DX: K52.9 Noninfective gastroenteritis and colitis, unspecified (principal)
CPT/HCPCS: 36415; 80053; 83516; 85025

== ENCOUNTER 2021-06-17 13:31 | Outpatient (CLI) | payer MEDICARE, OTHER ==
[2021-06-17 18:36] LABS: FECAL OCCULT BLOOD (FIT) NEGATIVE (NEGATIVE)
== END 2021-06-17 23:59 | disposition home or self-care (01) ==
LOC: LAB.WCP 13:31
PROVIDERS: ATTEND Internal Medicine
DX: K52.9 Noninfective gastroenteritis and colitis, unspecified (principal)
CPT/HCPCS: 82274

== ENCOUNTER 2021-07-13 10:17 | Outpatient (CLI) | payer MEDICARE, OTHER ==
--- NOTE | 2021-07-13 15:29 | XRAY Report ---
PROCEDURE: Ankle 3 View LT INDICATIONS: L ANKLE PX TECHNIQUE: 3 views of the ankle were acquired. COMPARISON: None. FINDINGS: Bones: No displaced fractures or dislocations. There is mild bony irregularity inferior to the late ral malleolus suggestive of small avulsion fracture of indeterminate acuity. Ankle mortise is normall y aligned. No suspicious bony lesions. Soft tissues: There is mild periarticular soft tissue swelling. No tibiotalar joint effusion. Achil les tendon appears intact. IMPRESSION: 1. Mild bony irregularity along the lateral malleolus inferomedially suggestive of an avulsion fractu re of indeterminate acuity. Reviewed by: Neville Restrepo MD on 07/13/2021 3:28 PM PST Approved by: Neville Restrepo MD on 07/13/2021 3:28 PM PST Station ID: [id number]
== END 2021-07-13 23:59 | disposition home or self-care (01) ==
LOC: DI.N 10:17
PROVIDERS: ATTEND Family Medicine
DX: M25.572 Pain in left ankle and joints of left foot (principal)

== ENCOUNTER 2021-09-03 08:00 | Outpatient (CLI) | payer MEDICARE, OTHER | END 2021-09-03 23:59 | disposition home or self-care (01) | LOC: LAB.N 08:00 | PROVIDERS: ATTEND Physician Assistant | DX: J34.89 Other specified disorders of nose and nasal sinuses (principal); Z20.822 Contact with and (suspected) exposure to COVID-19 ==

== ENCOUNTER 2021-11-03 08:00 | Outpatient (CLI) | payer MEDICARE, OTHER | END 2021-11-03 23:59 | LOC: LAB.N 08:00 | PROVIDERS: ATTEND Nurse Practitioner | DX: N39.0 Urinary tract infection, site not specified (principal) | CPT/HCPCS: 87086; 87181 ==

== ENCOUNTER 2021-11-24 07:54 | Outpatient (CLI) | payer MEDICARE, OTHER ==
[2021-11-24 12:04] LABS: BASOPHILS # (AUTO) 0.1 10^3/uL (0.0-0.1); BASOPHILS % (AUTO) 1.1 %; EOSINOPHILS # (AUTO) 0.5 10^3/uL (0.0-0.7); EOSINOPHILS % (AUTO) 9.8 %; HGB - HEMOGLOBIN 13.9 g/dL (12.0-16.0); LYMPHOCYTES # (AUTO) 0.9 10^3/uL (1.5-3.5); LYMPHOCYTES % (AUTO) 18.7 %; MEAN CORPUSCULAR HEMOGLOBIN 29.4 pg (27.0-31.0); MEAN CORPUSCULAR HGB CONC 32.3 g/dL (32.0-36.0); MEAN CORPUSCULAR VOLUME 91.1 fL (81.0-99.0); MEAN PLATELET VOLUME 11.7 fL (7.9-10.8); MONOCYTES # (AUTO) 0.4 10^3/uL (0.0-1.0); MONOCYTES % (AUTO) 7.6 %; NEUTROPHILS # (AUTO) 2.9 10^3/uL (1.5-6.6); NEUTROPHILS % (AUTO) 62.6 %; PLT - PLATELET COUNT 167 10^3/uL (130-450); RED BLOOD COUNT 4.72 10^6/uL (4.20-5.40); RED CELL DISTRIBUTION WIDTH 13.8 % (12.0-15.0); WHITE BLOOD COUNT 4.6 x10^3/uL (4.8-10.8)
[2021-11-24 12:52] LABS: THYROID STIMULATING HORMONE 2.49 uIU/mL (0.34-5.60)
[2021-11-24 12:56] LABS: ALBUMIN 4.4 g/dL (3.2-5.5); ALBUMIN/GLOBULIN RATIO 1.8 (1.0-2.2); ALKALINE PHOSPHATASE 67 IU/L (42-121); ALT ALANINE AMINOTRANSFERASE 22 IU/L (10-60); AST ASPARTATE AMINOTRANSFERASE 27 IU/L (10-42); BUN - BLOOD UREA NITROGEN 12 mg/dL (6-20); CARBON DIOXIDE - CO2 27 mmol/L (21-32); CHLORIDE 103 mmol/L (101-111); CHOL/HDL RATIO 2.9 (<4.4); CHOLESTEROL 206 mg/dL; CREATININE 0.8 mg/dL (0.4-1.0); GFR - MDRD 69 (>89); GLUCOSE 88 mg/dL (70-100); HDL CHOLESTEROL 71 mg/dL; LDL CHOLESTEROL,CALCULATED 123 mg/dL; LDL/HDL RATIO 1.7 (<4.4); POTASSIUM 4.2 mmol/L (3.5-5.0); SODIUM 139 mmol/L (135-145); TOTAL PROTEIN 6.9 g/dL (6.7-8.2); TRIGLYCERIDES 62 mg/dL; VLDL CHOLESTEROL 12 mg/dL
== END 2021-11-24 07:55 | disposition home or self-care (01) ==
LOC: LAB.N 07:54
PROVIDERS: ATTEND Internal Medicine
DX: R56.9 Unspecified convulsions (principal); Z13.220 Encounter for screening for lipoid disorders; E03.9 Hypothyroidism, unspecified
CPT/HCPCS: 36415; 80053; 80061; 83721; 84443; 85025

== ENCOUNTER 2021-12-14 08:00 | Outpatient (CLI) | payer MEDICARE, OTHER | END 2021-12-15 16:43 | disposition home or self-care (01) | LOC: LAB.N 08:00 | PROVIDERS: ATTEND Registered Nurse | DX: J32.9 Chronic sinusitis, unspecified (principal); Z20.822 Contact with and (suspected) exposure to COVID-19 ==

== ENCOUNTER 2022-06-13 08:00 | Outpatient (CLI) | payer MEDICARE, OTHER ==
[2022-06-13 17:49] LABS: BILIRUBIN,URINE NEGATIVE (NEGATIVE); GLUCOSE, URINE (UA) NEGATIVE (NEGATIVE); KETONES,URINE (UA) NEGATIVE (NEGATIVE); LEUKOCYTE ESTERASE, URINE LARGE (NEGATIVE); NITRITE,URINE NEGATIVE (NEGATIVE); OCCULT BLOOD,URINE LARGE (NEGATIVE); PROTEIN,URINE 100 mg/dL (NEGATIVE); UROBILINOGEN,URINE 0.2 (NORMAL) E.U./dL (NORMAL)
[2022-06-13 17:55] LABS: CLARITY,URINE CLOUDY (CLEAR)
[2022-06-13 18:10] LABS: BACTERIA,URINE Many /HPF (None Seen); SQUAMOUS EPITHELIAL CELL,UR FEW Squamous (<= Few); WBC,URINE >25 /HPF (0-5)
[2022-06-13 18:11] LABS: AMORPHOUS SEDIMENT,UR Few /LPF
== END 2022-06-13 23:59 | disposition home or self-care (01) ==
LOC: LAB.N 08:00
PROVIDERS: ATTEND Internal Medicine
DX: R39.15 Urgency of urination (principal)
CPT/HCPCS: 81001

== ENCOUNTER 2022-06-30 10:25 | Outpatient (CLI) | payer MEDICARE, OTHER ==
[2022-06-30 12:40] LABS: CALCIUM 9.9 mg/dL (8.5-10.3); CREATININE 0.7 mg/dL (0.4-1.0)
[2022-06-30 12:59] LABS: BILIRUBIN,URINE NEGATIVE (NEGATIVE); GLUCOSE, URINE (UA) NEGATIVE (NEGATIVE); KETONES,URINE (UA) NEGATIVE (NEGATIVE); LEUKOCYTE ESTERASE, URINE NEGATIVE (NEGATIVE); NITRITE,URINE NEGATIVE (NEGATIVE); OCCULT BLOOD,URINE TRACE-INTA (NEGATIVE); PH,URINE 5.5 PH (5.0-7.5); PROTEIN,URINE NEGATIVE (NEGATIVE); UROBILINOGEN,URINE 0.2 (NORMAL) E.U./dL (NORMAL)
[2022-06-30 13:16] LABS: BACTERIA,URINE Rare /HPF (None Seen); CLARITY,URINE CLOUDY (CLEAR); CRYSTALS,URINE 11-25 Ca Oxalate /LPF; RBC,URINE 0-5 /HPF (0-5); SQUAMOUS EPITHELIAL CELL,UR RARE Squamous (<= Few); WBC,URINE 0-3 /HPF (0-5)
== END 2022-06-30 10:26 | disposition home or self-care (01) ==
LOC: LAB.N 10:25
PROVIDERS: ATTEND Internal Medicine
DX: I72.8 Aneurysm of other specified arteries (principal); R39.15 Urgency of urination
CPT/HCPCS: 36415; 80048; 81001

== ENCOUNTER 2022-09-05 08:28 | Outpatient (CLI) | payer MEDICARE, OTHER ==
[2022-09-05 12:13] LABS: BASOPHILS % (AUTO) 0.6 %; EOSINOPHILS # (AUTO) 0.2 10^3/uL (0.0-0.7); EOSINOPHILS % (AUTO) 3.6 %; HCT - HEMATOCRIT 40.1 % (37.0-47.0); LYMPHOCYTES # (AUTO) 0.7 10^3/uL (1.5-3.5); LYMPHOCYTES % (AUTO) 15.4 %; MEAN CORPUSCULAR HEMOGLOBIN 28.6 pg (27.0-31.0); MEAN CORPUSCULAR HGB CONC 32.4 g/dL (32.0-36.0); MEAN CORPUSCULAR VOLUME 88.3 fL (81.0-99.0); MEAN PLATELET VOLUME 11.7 fL (7.9-10.8); MONOCYTES # (AUTO) 0.4 10^3/uL (0.0-1.0); MONOCYTES % (AUTO) 7.5 %; NEUTROPHILS # (AUTO) 3.4 10^3/uL (1.5-6.6); NEUTROPHILS % (AUTO) 72.7 %; PLT - PLATELET COUNT 160 10^3/uL (130-450); RED BLOOD COUNT 4.54 10^6/uL (4.20-5.40); RED CELL DISTRIBUTION WIDTH 13.5 % (12.0-15.0); WHITE BLOOD COUNT 4.7 x10^3/uL (4.8-10.8)
[2022-09-05 13:11] LABS: THYROID STIMULATING HORMONE 0.3 uIU/mL (0.34-5.60)
[2022-09-05 13:22] LABS: ALBUMIN 4.4 g/dL (3.2-5.5); ALBUMIN/GLOBULIN RATIO 1.7 (1.0-2.2); ALKALINE PHOSPHATASE 61 IU/L (42-121); ALT ALANINE AMINOTRANSFERASE 15 IU/L (10-60); AST ASPARTATE AMINOTRANSFERASE 22 IU/L (10-42); BUN - BLOOD UREA NITROGEN 12 mg/dL (6-20); CALCIUM 8.9 mg/dL (8.5-10.3); CARBON DIOXIDE - CO2 27 mmol/L (21-32); CHLORIDE 105 mmol/L (101-111); CHOL/HDL RATIO 3.4 (<4.4); CHOLESTEROL 186 mg/dL; CREATININE 0.7 mg/dL (0.4-1.0); GFR - MDRD 81 (>89); GLUCOSE 95 mg/dL (70-100); HDL CHOLESTEROL 55 mg/dL; LDL CHOLESTEROL,CALCULATED 116 mg/dL; LDL/HDL RATIO 2.1 (<4.4); POTASSIUM 4.2 mmol/L (3.5-5.0); SODIUM 137 mmol/L (135-145); TRIGLYCERIDES 74 mg/dL; VLDL CHOLESTEROL 15 mg/dL
[2022-09-05 14:42] LABS: FREE T4 (FREE THYROXINE) 1.29 ng/dL (0.58-1.64)
== END 2022-09-05 08:29 | disposition home or self-care (01) ==
LOC: LAB.N 08:28
PROVIDERS: ATTEND Internal Medicine
DX: G40.909 Epilepsy, unspecified, not intractable, without status epilepticus (principal); Z13.220 Encounter for screening for lipoid disorders; E03.9 Hypothyroidism, unspecified
CPT/HCPCS: 36415; 80053; 80061; 83721; 84439; 84443; 85025

== ENCOUNTER 2022-10-12 10:00 | Outpatient (CLI) | payer MEDICARE, OTHER | END 2022-10-12 10:15 | disposition home or self-care (01) | LOC: LAB.N 10:00 | PROVIDERS: ATTEND Nurse Practitioner | DX: R30.0 Dysuria (principal) | CPT/HCPCS: 87086 ==

== ENCOUNTER 2022-10-21 11:45 | Outpatient (CLI) | payer MEDICARE, OTHER | END 2022-10-21 12:00 | disposition home or self-care (01) | LOC: LAB.N 11:45 | PROVIDERS: ATTEND Family Medicine | DX: R30.0 Dysuria (principal) | CPT/HCPCS: 87086 ==

== ENCOUNTER 2022-11-24 10:19 | Outpatient (CLI) | payer MEDICARE, OTHER ==
--- NOTE | 2022-11-25 12:14 | Ultrasound Report ---
PROCEDURE: Pelvic w/Transvaginal INDICATIONS: PELVIC PAIN TECHNIQUE: Real-time scanning was performed of the pelvic organs, with image documentation. Additional endovagi nal scanning was necessary due to incomplete visualization of the adnexal and endometrial structures by transabdominal scanning. COMPARISON: Pelvic ultrasound, 07/28/2018. FINDINGS: Uterus: Uterus is anteverted and normal in size at 6.4 x 1.6 x 3.9 cm. The myometrium is homogeneou s. There is fluid within the endometrial cavity. Ovaries: The right ovary measures 2.1 x 1.3 x 2.3 cm, with a calculated ovarian volume of 3.1 cc. T he left ovary is not visualized. The ovaries have a normal sonographic appearance. No adnexal james s are seen. Other: No pathologic free abdominal or pelvic fluid. IMPRESSION: 1. Fluid within the endometrial cavity. This finding is abnormal for a 82-year-old woman. Recommend g ynecology consultation. 2. Normal right ovary. 3. Left ovary is not visualized. Reviewed by: Luc Stubbs MD on 11/25/2022 12:13 PM PDT Approved by: Luc Stubbs MD on 11/25/2022 12:13 PM PDT Station ID: [id number]
== END 2022-11-24 10:20 | disposition home or self-care (01) ==
LOC: DI 10:19
PROVIDERS: ATTEND Nurse Practitioner
DX: R10.2 Pelvic and perineal pain (principal)

== ENCOUNTER 2022-12-26 08:33 | Outpatient (CLI) | payer MEDICARE, OTHER ==
[2022-12-26 08:51] LABS: BASOPHILS % (AUTO) 0.9 %; EOSINOPHILS # (AUTO) 0.2 10^3/uL (0.0-0.7); EOSINOPHILS % (AUTO) 5.5 %; HGB - HEMOGLOBIN 13.3 g/dL (12.0-16.0); LYMPHOCYTES # (AUTO) 0.9 10^3/uL (1.5-3.5); LYMPHOCYTES % (AUTO) 20.1 %; MEAN CORPUSCULAR HEMOGLOBIN 29.3 pg (27.0-31.0); MEAN CORPUSCULAR HGB CONC 32.4 g/dL (32.0-36.0); MEAN CORPUSCULAR VOLUME 90.3 fL (81.0-99.0); MONOCYTES # (AUTO) 0.3 10^3/uL (0.0-1.0); MONOCYTES % (AUTO) 7.9 %; NEUTROPHILS # (AUTO) 2.8 10^3/uL (1.5-6.6); NEUTROPHILS % (AUTO) 65.4 %; PLT - PLATELET COUNT 156 10^3/uL (130-450); RED BLOOD COUNT 4.54 10^6/uL (4.20-5.40); RED CELL DISTRIBUTION WIDTH 14.1 % (12.0-15.0); WHITE BLOOD COUNT 4.3 x10^3/uL (4.8-10.8)
[2022-12-26 10:07] LABS: ALBUMIN 4.1 g/dL (3.2-5.5); ALBUMIN/GLOBULIN RATIO 1.4 (1.0-2.2); BILIRUBIN,TOTAL 1.1 mg/dL (0.2-1.0); CALCIUM 8.9 mg/dL (8.5-10.3); CREATININE 0.9 mg/dL (0.4-1.0); POTASSIUM 4.5 mmol/L (3.5-5.0)
== END 2022-12-26 08:34 | disposition home or self-care (01) ==
LOC: LAB 08:33
PROVIDERS: ATTEND Obstetrics & Gynecology
DX: Z01.812 Encounter for preprocedural laboratory examination (principal); R93.89 Abnormal findings on diagnostic imaging of other specified body structures
CPT/HCPCS: 36415; 80053; 85025; 86850; 86900; 86901

== ENCOUNTER 2022-12-27 08:21 | Day surgery (SDC) | payer MEDICARE, OTHER ==
[2022-12-27] MEDS ORDERED: LACTATED RINGERS 1,000 ML IV ONE (08:30)
[2022-12-27] MEDS ORDERED: miSOPROStoL 200 MCG TABLET ONE (09:16)
[2022-12-27] MEDS ORDERED: BUPIVACAINE 0.25% PF 30 ML VIAL ONE (09:29)
[2022-12-27] MEDS ORDERED: SILVER NITRATE APPLICATOR TOP ONE ×2 (09:29→11:18)
[2022-12-27] MEDS ORDERED: ceFAZolin 1 GM VIAL ONE (09:58)
[2022-12-27] MEDS ORDERED: miSOPROStoL 200 MCG TABLET BC ONE (10:00)
[2022-12-27] MEDS ORDERED: ceFAZolin 1 GM in SODIUM CHLORIDE 0.9% MINIBAG 100 ML IV SCH (10:00)
--- NOTE | 2022-12-27 10:05 | ANESTHESIA ---
Pre-Anesthesia VS, & Labs - Diagnosis thickened emdometrium - Procedure hysteroscopy, D&C Vital Signs: Temp Pulse Resp BP Pulse Ox O2 Flow Rate 36.1 C L 59 L 18 126/71 99 12/27/22 08:31 12/27/22 08:31 12/27/22 08:31 12/27/22 08:31 12/27/22 08:31 Height: 5 ft 1 in Weight (kg): 53.6 kg Body Mass Index: 22.3 BMI Classification: Normal - NPO >8 hours - Is Patient ?: No Home Medications and Allergies Home Medications: Ambulatory Orders Mirtazapine 7 mg PO DAILY 12/16/22 Pregabalin [Lyrica] 25 mg PO DAILY 12/16/22 atenoloL [Tenormin] 25 mg PO QPM 12/16/22 Wheat Dextrin [Benefiber] 2 tab PO DAILY 12/19/22 Active Medications Cefazolin Sodium 1 gm/ Sodium (Chloride) 100 mls @ 200 mls/hr IV Q8H LISSY Levothyroxine [Synthroid] 75 mcg PO QDAC 01/06/13 Mirtazapine 7 mg PO DAILY 12/16/22 Pregabalin [Lyrica] 25 mg PO DAILY 12/16/22 atenoloL [Tenormin] 25 mg PO QPM 12/16/22 Wheat Dextrin [Benefiber] 2 tab PO DAILY 12/19/22 Allergies/Adverse Reactions: Allergies Allergy/AdvReac Type Severity Reaction Status Date / Time acetaminophen [From Vicodin] Allergy Severe Rash Verified 12/16/22 14:43 benzocaine Allergy Severe Respiratory Verified 12/16/22 14:43 carbamazepine [From Tegretol] Allergy Severe Respiratory Verified 12/16/22 14:43 codeine [Codeine] Allergy Severe Respiratory Verified 12/16/22 14:43 ephedrine [Ephedrine] Allergy Severe Respiratory Verified 12/16/22 14:43 hydrocodone bitartrate * Allergy Severe Respiratory Verified 12/16/22 14:43 [From Vicodin] lamotrigine [From Lamictal] Allergy Severe Respiratory Verified 12/16/22 14:43 oxycodone [Oxycodone] Allergy Severe Respiratory Verified 12/16/22 14:43 Penicillins Allergy Severe Rash Verified 12/16/22 14:43 Sulfa (Sulfonamide Allergy Severe Rash Verified 12/16/22 14:43 Antibiotics) baclofen Allergy Hallucinations, Verified 12/16/22 15:11 nausea ciprofloxacin [From Cipro] Allergy seizures Verified 12/16/22 14:43 iodine Allergy Rash Verified 12/16/22 14:43 mannitol [From Reclast] Allergy Unknown Verified 12/16/22 15:11 methadone Allergy psychotic Verified 12/16/22 14:43 break metrizamide Allergy Rash Verified 12/16/22 15:11 milk Allergy Unknown Verified 12/16/22 15:11 oxcarbazepine Allergy Rash Verified 12/16/22 15:11 promethazine Allergy Hallucinati Verified 12/16/22 15:11 ons shellfish derived Allergy GI upset Verified 12/16/22 15:11 vilazodone Allergy seizures Verified 12/16/22 15:11 water for injection,sterile Allergy Unknown Verified 12/16/22 15:11 [From Reclast] zoledronic acid Allergy Unknown Verified 12/16/22 15:11 [From Reclast] adhesive AdvReac Itching Verified 12/16/22 14:43 epinephrine AdvReac tachycardia Verified 12/16/22 15:11 and chest pain hydromorphone AdvReac total body Verified 12/16/22 15:11 itching and painful eyes lorazepam [From Ativan] AdvReac Hallucinati Verified 12/16/22 14:43 ons Anes History & Medical History - Anesthetic History Anesthesia Complications: reports: No previous complications - Medical History Cardiovascular: reports: Murmur, Arrhythmia, Other Pulmonary: reports: None Gastrointestinal: reports: Other Urinary: reports: Other Neuro: reports: Seizure disorder (last one sep 2019), Other (had multiple neck fusions, 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) Musculoskeletal: reports: Osteoarthritis, Chronic back pain, Other Endocrine/Autoimmune: reports: HyPOthyroidism Skin: reports: Eczema Smoking Status: Never smoker - Surgical History General: reports: Colonoscopy, EGD, Other Eyes Ears Nose Throat (EENT): reports: Cataracts, Tonsil/Adenoidectomy, Other Gynecologic: reports: section, Tubal ligation Neurologic: reports: Craniotomy, Other Orthopedic: reports: Knee replacement, Carpal Tunnel surgery, Spine surgery, Other Dermatologic: reports: Skin cancer surgery Exam General: Alert, Oriented x3, Cooperative Dental: WNL Mouth Opening: Greater than 4 Fingerbreadths Neck Mobility: Normal Mallampati classification: II Thyromental Distance: greater than 6 cm Respiratory: Lungs clear Cardiovascular: Regular rate Plan Anesthesia Type: General Consent for Procedure(s) Verified and Reviewed: Yes Code Status: Attempt Resuscitation ASA classification: 3-Severe systemic disease Is this case an emergency?: No
[2022-12-27] MEDS ORDERED: fentaNYL 100 MCG/2 ML VIAL IVP PRN (10:11)
[2022-12-27] MEDS ORDERED: ATROPINE ABBOJECT 1 MG/10 ML SYRINGE IVP PRN (10:11)
[2022-12-27] MEDS ORDERED: HYDROmorphone 0.5 MG/0.5 ML SYRINGE IVP PRN (10:11)
[2022-12-27] MEDS ORDERED: METOCLOPRAMIDE 10 MG/2 ML VIAL IVP PRN (10:11)
[2022-12-27] MEDS ORDERED: ONDANSETRON 4 MG/2 ML VIAL IVP PRN (10:11)
[2022-12-27] MEDS ORDERED: ePHEDrine 50 MG/ML VIAL IVP PRN (10:11)
[2022-12-27] MEDS ORDERED: NALOXONE 0.4 MG/ML VIAL IVP PRN (10:11)
[2022-12-27] MEDS ORDERED: PROPOFOL 200 MG/20 ML VIAL IVP ONE (10:21)
[2022-12-27] MEDS ORDERED: fentaNYL 100 MCG/2 ML VIAL ONE (10:57)
[2022-12-27] MEDS ORDERED: LACTATED RINGERS 1,000 ML IV SCH (11:00)
[2022-12-27] MEDS ORDERED: ONDANSETRON 4 MG/2 ML VIAL ONE (11:10)
[2022-12-27] MEDS ORDERED: DEXAMETHASONE 4 MG/ML VIAL ONE (11:10)
[2022-12-27] MEDS ORDERED: SEVOFLURANE 250 ML LIQUID INH ONE (11:18)
[2022-12-27] MEDS ORDERED: LACTATED RINGERS 900 ML IV ONE (11:58)
[2022-12-27] MEDS ORDERED: IBUPROFEN 800 MG TABLET PO PRN (12:05)
[2022-12-27] MEDS ORDERED: HYDROmorphone 2 MG TABLET PO PRN (12:06)
--- NOTE | 2022-12-27 12:19 | OPERATIVE REPORT ---
Operative Report - General Procedure Date: 12/27/22 Planned Procedure: Dilation and curettage, hysteroscopy Pre-Op Diagnosis: Thickened endometrium, fluid in cavity Procedure Performed: Dilation and curettage, hysteroscopy Post Op Diagnosis: Thickened endometrium, fluid in cavity - Procedure Note Primary Surgeon: Madison Diallo DO Anesthesia Provider: Lizeth Paula CRNA Anesthesia Technique: General LMA Pathology: Endometrial biopsy/curettings Estimated Blood Loss (mL): 20 Urine Output (mL): 10 Indications: Thickened endometrium, fluid in cavity Findings: Adhesions within uterus, yellow tissue noted Complications: None - Other Other Information/Narrative: Patient transferred to OR. Anesthesia obtained without difficulty. Prepped and draped in sterile fashion. Bladder emptied. Kia speculum used due to vaginal atrophy. Anterior lip of cervix grasped with tenaculum. Cervix dilated to accommodate Myosure hysteroscope. Internal os difficult to dilate. Hysteroscope introduced and adhesions, yellow tissue noted. Hysteroscope then withdrawn and was unable to introduce again. Endometrial curette introduced and limited tissue obtained. Endometrial pipelle used to obtain sample due to difficulty introducing instruments due to atrophy and cervical stenosis. She was given misoprostol pre-operatively. Small sample obtained from endometrial pipelle. Tenaculum removed and speculum. Counts correct x2. Transferred to PACU in stable condition.
--- NOTE | 2022-12-27 12:48 | ANESTHESIA POST OP EVALUATION ---
Anesthesia Post Eval - Post Anesthesia Eval Vitals: Last Vital Signs Temp 36.0 C L 12/27/22 12:10 Pulse 73 12/27/22 12:28 Resp 22 12/27/22 12:28 BP 128/78 12/27/22 12:28 Pulse Ox 100 12/27/22 12:28 O2 Flow Rate CV Function Including HR & BP: Stable Pain Control: Satisfactory Nausea & Vomiting: Negative Mental Status: Baseline Respiratory Status: Airway Patent Hydration Status: Satisfactory Anesthesia Complications: None
[2022-12-27] MEDS ORDERED: HYDROmorphone 0.5 MG/0.5 ML SYRINGE IVP ONE (12:50)
[2022-12-27] MEDS ORDERED: HYDROmorphone 0.5 MG/0.5 ML SYRINGE ONE (12:51)
[2022-12-27] MEDS ORDERED: HYDROmorphone 2 MG TABLET ONE (14:01)
[2022-12-27 14:11] VITALS: BP 114/60
== END 2022-12-27 08:22 | disposition home or self-care (01) ==
LOC: SDS 08:21
PROVIDERS: ATTEND Obstetrics & Gynecology
PROC: 0UDB8ZX Extraction of Endometrium, Via Natural or Artificial Opening Endoscopic, Diagnostic (ICD-10-PCS; principal; 2022-12-27 10:00)
DX: R93.89 Abnormal findings on diagnostic imaging of other specified body structures (principal); R10.2 Pelvic and perineal pain; Z78.0 Asymptomatic menopausal state
CPT/HCPCS: 58558; 93005; A9270; J1170; J3490; J7120

== ENCOUNTER 2023-01-02 09:30 | Outpatient (CLI) | payer MEDICARE, OTHER | END 2023-01-02 09:45 | disposition home or self-care (01) | LOC: LAB.N 09:30 | PROVIDERS: ATTEND Physician Assistant Medical | DX: R30.0 Dysuria (principal) | CPT/HCPCS: 87086; 87181 ==

== ENCOUNTER 2023-01-12 14:01 | Outpatient (CLI) | payer MEDICARE, OTHER | END 2023-01-12 23:59 | disposition critical access hospital (66) | LOC: EMS 14:01 | DX: R51.9 Headache, unspecified (principal); R45.89 Other symptoms and signs involving emotional state; M25.561 Pain in right knee | CPT/HCPCS: A0425; A0429 ==

== ENCOUNTER 2023-01-12 14:24 | Emergency (ER) | payer MEDICARE, OTHER ==
--- OUTSIDE RECORDS SUMMARY | 2023-01-12 14:37 | EXTERNAL MEDICAL SUMMARY RPT | Continuity of Care Document ---
Author Name Unknown Address [address] [place] [address] Phone Organization [facility] Address [address] [place] [address] Phone Care Team Providers Care Health Care Facilities Inspector Name Role Phone Loc [facility] Unavailable Unavailable Medications date description facility 2022-10-19 00:00 [facility] Problems date description facility 2022-11-07 10:38 Pain in right knee [facility] 2022-11-09 10:06 Pain in right knee [facility] Results/Labs test date author facility value unit interpretation Result panel 1 (unknown) (no date) (unknown) (unknown) (no value) (units unknown) (unknown) (unknown) (no date) (unknown) (unknown) 11/07/22 (units unknown) (unknown) (unknown) (no date) (unknown) (unknown) [address] [place] [address] (un its unknown) (unknown) (unknown) (no date) (unknown) (unknown) Accession Numb er: [id number] (units unknown) (unknown) (unknown) (no date) (unknown) (unknown) Age/Sex: 82 / F Date of Service: (units unknown) (unknown) (unknown) (no date) (unknown) (unknown) [place] [address] (units unknown) (unknown) (unknown) (no date) (unknown) (unknown) Approved by: Nimesh Fournier M.D. on 11/07/2022 at 16:50 (units unknown) (unknown) (unknown) (no date) (unknown) (unknown) COMPARISON: [facility], CT, CT KNEE RIGHT WITHOUT CON, 05/25/2022, 14:24. (units unknown) (unknown) (unknown) (no date) (unknown) (unknown) Caution: Repor t not yet finalized and possibly incomplete! (units unknown) (unknown) (unknown) (no date) (unknown) (unknown) : 3 Acct:[id number] (units unknown) (unknown) (unknown) (no date) (unknown) (unknown) Dictated by: Sharyn RUCKER Interpreted: Jerry Fournier MD on 11/07/2022 at 12:54 (units unknown) (unknown) (unknown) (no date) (unknown) (unknown) Draft (units unknown) (unknown) (unknown) (no date) (unknown) (unknown) FINDINGS: (units unknown) (unknown) (unknown) (no date) (unknown) (unknown) IMPRESSION: Le g length as above. (units unknown) (unknown) (unknown) (no date) (unknown) (unknown) INDICATIONS: l eg length study (units unknown) (unknown) (unknown) (no date) (unknown) (unknown) [facility] (uni ts unknown) (unknown) (unknown) (no date) (unknown) (unknown) Left: Total le g length is 84.1 cm. (units unknown) (unknown) (unknown) (no date) (unknown) (unknown) Loc: RAD (units unknown) (unknown) (unknown) (no date) (unknown) (unknown) MR#: [id number] (uni ts unknown) (unknown) (unknown) (no date) (unknown) (unknown) [facility], CR, XR KNEE 4+ VIEWS RIGHT, 05/24/2022, 14:52. (units unknown) (unknown) (unknown) (no date) (unknown) (unknown) Ordering Provider: Shayna Mariano DPM (units unknown) (unknown) (unknown) (no date) (unknown) (unknown) PROCEDURE: XR BONE LENGTH SCANOGRAM (units unknown) (unknown) (unknown) (no date) (unknown) (unknown) Patient: Sophia Miranda (units unknown) (unknown) (unknown) (no date) (unknown) (unknown) Procedure: XR bone length scanogram (units unknown) (unknown) (unknown) (no date) (unknown) (unknown) Right: Total l eg length is 83.8 cm. Right knee arthroplasty. (units unknown) (unknown) (unknown) (no date) (unknown) (unknown) Signed (units unknown) (unknown) (unknown) (no date) (unknown) (unknown) Day (units unknown) (unknown) (unknown) (no date) (unknown) (unknown) TECHNIQUE: A single frontal standing view of both lower extremities acquired, (units unknown) (unknown) (unknown) (no date) (unknown) (unknown) Transcribed by : MERCEDES on 11/07/2022 at 12:55 (units unknown) (unknown) (unknown) (no date) (unknown) (unknown) XRay Report (units unknown) (unknown) (unknown) (no date) (unknown) (unknown) measuring rule r situated between the legs. (units unknown) (unknown) (unknown) (no date) (unknown) (unknown) with (units unknown) (unknown) Social History date description facility 2022-10-19 00:00 Never smoked tobacco (finding) [facility]
[2023-01-12] MEDS ORDERED: diphenhydrAMINE INJ 50 MG/ML VIAL IVP STA (14:42)
[2023-01-12] MEDS ORDERED: SODIUM CHLORIDE 0.9% 1,000 ML IV STA (14:42)
[2023-01-12] MEDS ORDERED: predniSONE 20 MG TABLET PO STA (14:43)
[2023-01-12 14:51] LABS: MUDS CUTOFF CONCENTRATIONS CUTOFF CONC BELOW:
[2023-01-12 14:53] LABS: BILIRUBIN,URINE NEGATIVE (NEGATIVE); GLUCOSE, URINE (UA) NEGATIVE (NEGATIVE); KETONES,URINE (UA) NEGATIVE (NEGATIVE); LEUKOCYTE ESTERASE, URINE NEGATIVE (NEGATIVE); NITRITE,URINE NEGATIVE (NEGATIVE); OCCULT BLOOD,URINE NEGATIVE (NEGATIVE); PROTEIN,URINE NEGATIVE (NEGATIVE); UROBILINOGEN,URINE 0.2 (NORMAL) E.U./dL (NORMAL)
[2023-01-12 14:56] LABS: CLARITY,URINE CLEAR (CLEAR)
[2023-01-12 14:58] LABS: BASOPHILS % (AUTO) 0.6 %; EOSINOPHILS # (AUTO) 0.2 10^3/uL (0.0-0.7); EOSINOPHILS % (AUTO) 2.6 %; HCT - HEMATOCRIT 45.1 % (37.0-47.0); HGB - HEMOGLOBIN 14.6 g/dL (12.0-16.0); LYMPHOCYTES # (AUTO) 0.7 10^3/uL (1.5-3.5); MEAN CORPUSCULAR HEMOGLOBIN 29.1 pg (27.0-31.0); MEAN CORPUSCULAR HGB CONC 32.4 g/dL (32.0-36.0); MEAN PLATELET VOLUME 11.4 fL (7.9-10.8); MONOCYTES # (AUTO) 0.4 10^3/uL (0.0-1.0); MONOCYTES % (AUTO) 6.1 %; NEUTROPHILS # (AUTO) 5.8 10^3/uL (1.5-6.6); NEUTROPHILS % (AUTO) 80.4 %; PLT - PLATELET COUNT 137 10^3/uL (130-450); RED BLOOD COUNT 5.01 10^6/uL (4.20-5.40); RED CELL DISTRIBUTION WIDTH 14.3 % (12.0-15.0); WHITE BLOOD COUNT 7.2 x10^3/uL (4.8-10.8)
--- NOTE | 2023-01-12 15:00 | ED Physician Documentation ---
History of Present Illness - Stated complaint Stated Complaint: ALOC - Chief complaint Chief Complaint: Neuro - Additonal information Additional information: 82-year-old female brought to the emergency department via EMS for evaluation of confusion and altered mental status. The patient was reportedly brought to the [facility] walk-in clinic by a friend stating she was having a stroke. The patient tells me she does not remember how she got to the [facility] walk-in clinic. She does state that she has a headache. Patient is not a good historian at this time. She is crying, tearful and anxious. She is asking us to "release her from her p ain." Patient states to me that the year is 2019. She does not know the month. She does not know who is president. She has no obvious focal neurodeficits other than confusion. When I asked the patient if she does any drugs she states "none that are illegal" When questioned where she lives she states that she lives with 2 cats. When asked if anyone else lives with her she states that a woman named Joleen lives upstairs. She is not able to tell me the nature of the relationship. States she does not charge her rent. 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 She also has a history of anaphylaxis to iodine and will not allow any contrast related studies. 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) Endocrine/Autoimmune: HyPOthyroidism GI: Other ALTERNATIVE FINANCING SPECIALIST: None : Other HEENT: Chronic vision loss, Macular degeneration, Chronic hearing loss, Other Psych: Depression Musculoskeletal: Osteoarthritis, Chronic back pain, Other Derm: Eczema - Past Surgical History Past Surgical History: Yes General: Colonoscopy, EGD, Other Ortho: Knee replacement, Carpal Tunnel surgery, Spine surgery, Other /ALTERNATIVE FINANCING SPECIALIST: section, Tubal ligation Neuro: Craniotomy, Other HEENT: Cataracts, Tonsil/Adenoidectomy, Other Derm: Skin cancer surgery - Present Medications Home Medications: Ambulatory Orders Medication Instructions Recorded Confirmed Levothyroxine [Synthroid] 75 mcg PO QDAC 01/06/13 12/27/22 Mirtazapine 7 mg PO DAILY 12/16/22 12/27/22 Pregabalin [Lyrica] 25 mg PO DAILY 12/16/22 12/16/22 atenoloL [Tenormin] 25 mg PO QPM 12/16/22 12/27/22 Wheat Dextrin [Benefiber] 2 tab PO DAILY 12/19/22 12/19/22 - Allergies Allergies/Adverse Reactions: Allergies Allergy/AdvReac Type Severity Reaction Status Date / Time acetaminophen [From Vicodin] Allergy Severe Rash Verified 01/12/23 14:40 benzocaine Allergy Severe Respiratory Verified 01/12/23 14:40 carbamazepine [From Tegretol] Allergy Severe Respiratory Verified 01/12/23 14:40 codeine [Codeine] Allergy Severe Respiratory Verified 01/12/23 15:14 ephedrine [Ephedrine] Allergy Severe Respiratory Verified 01/12/23 14:40 hydrocodone bitartrate * Allergy Severe Respiratory Verified 01/12/23 14:40 [From Vicodin] lamotrigine [From Lamictal] Allergy Severe Respiratory Verified 01/12/23 14:40 oxycodone [Oxycodone] Allergy Severe Respiratory Verified 01/12/23 14:40 Penicillins Allergy Severe Rash Verified 01/12/23 14:40 Sulfa (Sulfonamide Allergy Severe Rash Verified 01/12/23 14:40 Antibiotics) baclofen Allergy Hallucinations, Verified 01/12/23 14:40 nausea ciprofloxacin [From Cipro] Allergy seizures Verified 01/12/23 14:40 iodine Allergy Rash Verified 01/12/23 14:40 mannitol [From Reclast] Allergy Unknown Verified 01/12/23 14:40 methadone Allergy psychotic Verified 01/12/23 14:40 break metrizamide Allergy Rash Verified 01/12/23 14:40 milk Allergy Unknown Verified 01/12/23 14:40 oxcarbazepine Allergy Rash Verified 01/12/23 14:40 promethazine Allergy Hallucinati Verified 01/12/23 14:40 ons shellfish derived Allergy GI upset Verified 01/12/23 14:40 vilazodone Allergy seizures Verified 01/12/23 14:40 water for injection,sterile Allergy Unknown Verified 01/12/23 14:40 [From Reclast] zoledronic acid Allergy Unknown Verified 01/12/23 14:40 [From Reclast] adhesive AdvReac Itching Verified 01/12/23 14:40 epinephrine AdvReac tachycardia Verified 01/12/23 14:40 and chest pain lorazepam [From Ativan] AdvReac Hallucinati Verified 01/12/23 14:40 ons - Social History Does the pt smoke?: No Smoking Status: Never smoker Does the pt drink ETOH?: No Does the pt have substance abuse?: No - Immunizations Immunizations are current?: Yes - POLST Patient has POLST: No PD ED PE NORMAL - General General: No acute distress (Anxious, crying and tearful). No: Alert and oriented X 3 - HEENT HEENT: PERRL - Neck Neck: Supple, no meningeal sign - Cardiac Cardiac: RRR, No murmur - Respiratory Respiratory: No respiratory distress, Clear bilaterally - Abdomen Abdomen: Normal bowel sounds, Soft, Non tender - Back Back: No CVA TTP, No spinal TTP - Derm Derm: Normal color - Extremities Extremities: No deformity - Neuro Neuro: rn orthopaedic 2-12 intact, No motor deficit, No sensory deficit, Normal speech. No: Alert and oriented X 3 (confused to date and time. Does nto know who president is) Eye Opening: Spontaneous Motor: Obeys Commands Verbal: Oriented GCS Score: 15 - Psych Psych: No: Normal affect (anxious, crying, tearful) Results - Vitals Vitals: Vital Signs - 24 hr 01/12/23 01/12/23 01/12/23 14:34 15:30 17:02 Temperature 36.8 C Heart Rate 60 66 64 Respiratory 16 16 16 Rate Blood Pressure 141/75 H 118/60 127/70 O2 Saturation 97 96 100 01/12/23 17:53 Temperature Heart Rate 65 Respiratory 16 Rate Blood Pressure 153/80 H O2 Saturation 100 Oxygen O2 Source Room air - EKG (time done) 1512 EKG releavant findings:: EKG personally interpreted by author of this note. Relevant findings are: Rate: Rate (enter#) (56) Rhythm: NSR [place]: Normal Intervals: Normal MA QRS: Poor R wave progression Ischemia: Normal ST segments Compare to prior EKG: Unchanged from prior EKG Computer interpretation: Agree with computer - Labs Labs: Laboratory Tests 01/12/23 01/12/23 01/12/23 14:45 14:53 14:53 WBC 7.2 RBC 5.01 Hgb 14.6 Hct 45.1 MCV 90.0 MCH 29.1 MCHC 32.4 RDW 14.3 Plt Count 137 MPV 11.4 H Neut # (Auto) 5.8 Lymph # (Auto) 0.7 L Sherman # (Auto) 0.4 Eos # (Auto) 0.2 Baso # (Auto) 0.0 Absolute Nucleated RBC 0.00 Nucleated RBC % 0.0 Sodium 139 Potassium 4.0 Chloride 103 Carbon Dioxide 28 Anion Gap 8.0 BUN 14 Creatinine 0.8 Estimated GFR (MDRD) 69 L Glucose 98 Calcium 10.0 Magnesium 2.1 Total Bilirubin 1.0 AST 26 ALT 18 Alkaline Phosphatase 62 Total Creatine Kinase 52 Total Protein 7.5 Albumin 4.8 Globulin 2.7 Albumin/Globulin Ratio 1.8 Lipase 52 H TSH Free T4 Urine Color DARK YELLOW Urine Clarity CLEAR Urine pH 6.0 Ur Specific Clancy 1.025 Urine Protein NEGATIVE Urine Glucose (UA) NEGATIVE Urine Ketones NEGATIVE Urine Occult Blood NEGATIVE Urine Nitrite NEGATIVE Urine Bilirubin NEGATIVE Urine Urobilinogen 0.2 (NORMAL) Ur Leukocyte Esterase NEGATIVE Ur Microscopic Review NOT INDICATED Urine Culture Comments NOT INDICATED Salicylates < 6.0 Urine Opiates Screen NEGATIVE Ur Oxycodone Screen NEGATIVE Urine Methadone Screen NEGATIVE Ur Propoxyphene Screen NEGATIVE Acetaminophen < 10 L Ur Barbiturates Screen NEGATIVE Ur Tricyclics Screen NEGATIVE Ur Phencyclidine Scrn NEGATIVE Ur Amphetamine Screen NEGATIVE U Methamphetamines Scrn NEGATIVE U Benzodiazepines Scrn NEGATIVE Urine Cocaine Screen NEGATIVE U Cannabinoids Screen NEGATIVE Ethyl Alcohol < 5.0 01/12/23 14:53 WBC RBC Hgb Hct MCV MCH MCHC RDW Plt Count MPV Neut # (Auto) Lymph # (Auto) Sherman # (Auto) Eos # (Auto) Baso # (Auto) Absolute Nucleated RBC Nucleated RBC % Sodium Potassium Chloride Carbon Dioxide Anion Gap BUN Creatinine Estimated GFR (MDRD) Glucose Calcium Magnesium Total Bilirubin AST ALT Alkaline Phosphatase Total Creatine Kinase Total Protein Albumin Globulin Albumin/Globulin Ratio Lipase TSH 4.84 Free T4 1.04 Urine Color Urine Clarity Urine pH Ur Specific Clancy Urine Protein Urine Glucose (UA) Urine Ketones Urine Occult Blood Urine Nitrite Urine Bilirubin Urine Urobilinogen Ur Leukocyte Esterase Ur Microscopic Review Urine Culture Comments Salicylates Urine Opiates Screen Ur Oxycodone Screen Urine Methadone Screen Ur Propoxyphene Screen Acetaminophen Ur Barbiturates Screen Ur Tricyclics Screen Ur Phencyclidine Scrn Ur Amphetamine Screen U Methamphetamines Scrn U Benzodiazepines Scrn Urine Cocaine Screen U Cannabinoids Screen Ethyl Alcohol - Rads (name of study) CT head Relevant Findings:: Final report received (No CT evidence of acute intracranial bleed, midline shift or mass effect. Prior right temporoparietal craniotomy with right temporal lobe encephalomalacia unchanged from prior study. Prior right aneurysm clipping) PD Medical Decision Making - ED course Complexity details: reviewed results, re-evaluated patient, considered differential, d/w patient, d/w family (Latasha Daughter) ED course: 82-year-old female presents to the emergency department for altered mental status. Reportedly he she asked her neighbors to drive her to the [facility] and when there she told them that she thought she was having a stroke. The patient has amnesia to the events of this morning and has difficulty remembering that she has met me now multiple times in the emergency department. History is limited from the patient though she did allude to us that she had an aneurysm clipping at some remote time in the past. She also states she has a seizure disorder. She is not on a typical antiepileptic and states that she resumed taking Lyrica because it works for her. I have reviewed the [facility] chart for this patient. It does appear that she has a history of partial epilepsy with intractable epilepsy supervisor wet end colin headaches. She also had a known aneurysm which was clipped in the remote past. Here in the emergency department patient is confused to the date and time but other than confusion has no focal neurodeficits. Her NIHSS was 1 for confusion only. Patient is without fever, hypotension tachycardia. I did obtain a CBC, electrolytes, thyroid, urine drug screen, Tylenol salicylates and all were negative. Alcohol was also negative. I did do a CT of her head without contrast which showed no intracranial findings but a prior right temporal craniotomy with encephalomalacia was unchanged. She does have some aneurysm clipping. On reevaluation the patient remains confused though she is able to tell me she knows she has upcoming neurology and neurosurgery appointments and is able to locate these appointments and her phone. Her daughter Latasha is coming from [place] but had reported to us that her mom's had had bouts of confusion and amnesia repeatedly over the last several months. Patient's friend and neighbor Kirstie is in the room with the patient. She endorses the similar history. Clinically the patient does not of care appear to be having an acute stroke though a TIA is in the differential so is a seizure disorder. Given the patient's age the bouts of confusion could also be seen with the onset of dementia. At this point I feel the patient is safe to be discharged home with appropriate care and resources. I have informed the patient I do not feel that she is safe to drive given sudden bouts of confusion and an unclear epilepsy history. I have reported to her that I will make a DOL report. She states to me that she will drive anyway. 1800: Patient's daughter Latasha has presented to the bedside. She reports that her mom appears to be back at her baseline mentation. We discussed this ED visit as well as negative imaging and my concerns for possible seizure activity versus dementia. Both are aware that I have made a report to the department of licensing. Patient is scheduled to follow-up with her ENT tomorrow as well as her neurologist on 01 February. Patient is also scheduled to see her psychiatrist this upcoming Monday. Patient and daughter were given [facility] resources. The usual emergent return precautions worsening symptoms were discussed Departure - Departure Disposition: 01 Home, Self Care Clinical Impression: Altered mental status, unspecified Qualifiers: Altered mental status type: transient alteration of awareness Qualified Code(s): R40.4 - Transient alteration of awareness Condition: Serious Record reviewed to determine appropriate education?: Yes Comments: Lizeth sarmiento are brought to the emergency department today because you had a sudden bout of confusion. You have some amnesia to the events of this morning and even during this ED visit. We did do a lot of labs today that included CBC, electrolytes thyroid urine drug screen that were all essentially normal. The CT of your head shows the old a neurysm clippings as well as some encephalomalacia around the right frontal lobe but no acute findings. I am concerned that the sudden bouts of confusion could be related to your epilepsy disorder. However that can also be seen Has signs of dementia. I have made a report to the [facility] department of licensing as I feel you are unsafe to drive until seen or cleared by your neurologist or had a driving test evaluation. Important you continue to follow closely with your primary care doctors as well as a neurologist. If you ever have a similar event of symptoms, sudden slurred speech, facial droop focal weakness in the arms or legs then please return immediately to the ER for second evaluation Discharge Date/Time: 01/12/23 17:54 NIHSS - Time Time: 14:50 - Level of Consciousness Level of consciousness: (0) Alert, Keenly responsive LOC Questions: (1) Answers one Q correctly (Knows her name, knows she is in the hospital. Does not know the year, month or president) LOC Commands: (0) Performs both correctly - Gaze Best Gaze: (0) Normal - Visual Visual: (0) No loss - Facial Palsy Facial Palsy: (0) Normal, symmetrical movement - Motor Arms (both separate) Motor Arm (right): (0) No drift Motor Arm (left): (0) No drift - Motor Legs (both separate) Motor Leg (right): (0) No drift Motor Leg (left): (0) No drift - Limb Ataxia Limb Ataxia: (0) Absent - Sensory Sensory: (0) Normal - Best Language Best Language: (0) No aphasia - Dysarthria Dysarthria: (0) Normal - Extinction and Inattention (formally neg Extinction and inattention: (0) No abnormality - Total Score/Results Total Score/Result: 1
[2023-01-12 15:15] LABS: AMPHETAMINE SCREEN,URINE NEGATIVE (NEGATIVE); BARBITURATE SCREEN,UR NEGATIVE (NEGATIVE); BENZODIAZEPINES SCREEN, URINE NEGATIVE (NEGATIVE); COCAINE SCREEN URINE NEGATIVE (NEGATIVE); METHADONE SCREEN, URINE NEGATIVE (NEGATIVE); METHAMPHETAMINES SCREEN, URINE NEGATIVE (NEGATIVE); OPIATE SCREEN, URINE NEGATIVE (NEGATIVE); OXYCODONE SCREEN, URINE NEGATIVE (NEGATIVE); PROPOXYPHENE SCREEN, URINE NEGATIVE (NEGATIVE); THC CANNABINOID SCREEN, URINE NEGATIVE (NEGATIVE); TRICYCLIC ANTIDEPRESSANT,URINE NEGATIVE (NEGATIVE)
[2023-01-12 15:20] LABS: ACETAMINOPHEN < 10 ug/mL (10-30); ALBUMIN 4.8 g/dL (3.2-5.5); ALBUMIN/GLOBULIN RATIO 1.8 (1.0-2.2); ALKALINE PHOSPHATASE 62 IU/L (42-121); ALT ALANINE AMINOTRANSFERASE 18 IU/L (10-60); AST ASPARTATE AMINOTRANSFERASE 26 IU/L (10-42); BUN - BLOOD UREA NITROGEN 14 mg/dL (6-20); CARBON DIOXIDE - CO2 28 mmol/L (21-32); CHLORIDE 103 mmol/L (101-111); CK- CREATINE KINASE 52 IU/L (22-269); CREATININE 0.8 mg/dL (0.4-1.0); ETOH - ETHANOL < 5.0 mg/dL; GFR - MDRD 69 (>89); GLUCOSE 98 mg/dL (70-100); LIPASE 52 U/L (22-51); MAGNESIUM 2.1 mg/dL (1.7-2.8); SALICYLATE < 6.0 mg/dL; SODIUM 139 mmol/L (135-145); TOTAL PROTEIN 7.5 g/dL (6.7-8.2)
[2023-01-12 15:27] LABS: THYROID STIMULATING HORMONE 4.84 uIU/mL (0.34-5.60)
[2023-01-12 15:29] LABS: FREE T4 (FREE THYROXINE) 1.04 ng/dL (0.58-1.64)
--- NOTE | 2023-01-12 15:41 | CT Report ---
PROCEDURE: HEAD WO INDICATIONS: confusion; hx of aneurysm clipping TECHNIQUE: Noncontrast 4.5 mm thick angled axial sections acquired from the foramen magnum to the vertex. For r adiation dose reduction, the following was used: automated exposure control, adjustment of mA and/or kV according to patient size. COMPARISON: 11/12/2020. FINDINGS: Image quality: Excellent. CSF spaces: Basal cisterns are patent. No extra-axial fluid collections. Ventricles are normal in size and shape. Brain: There is right-sided craniotomy and aneurysm clipping. Significant encephalomalacia involving right temporal lobe deep to craniotomy site is seen. No midline shift. No intracranial masses or he morrhage. Bender-white matter interface is normal. Skull and face: No acute skull fracture. Visualized facial bones are within normal limits. Sinuses: Visualized sinuses and mastoids are clear. IMPRESSION: 1. No CT evidence of acute intracranial bleed, midline shift or mass effect. 2. Prior right temporal parietal craniotomy with right temporal lobe encephalomalacia unchanged from prior study. Prior right aneurysm clipping. Reviewed by: Joey Palacios MD on 01/12/2023 3:40 PM PDT Approved by: Joey Palacios MD on 01/12/2023 3:40 PM PDT Station ID: [id number]
[2023-01-12 17:56] VITALS: BP 153/80
== END 2023-01-12 17:54 | disposition home or self-care (01) ==
LOC: EDUNIT# → ED 14:24
DX: R40.4 Transient alteration of awareness (principal)
CPT/HCPCS: 36415; 70450; 80053; 80306; 80307; 81003; 82550; 83690; 83735; 84439; 84443; 85025; 93005; 99284; G0480; 80320; 80329; 81001; 87086

== ENCOUNTER 2023-04-25 09:25 | Outpatient (CLI) | payer MEDICARE, OTHER ==
[2023-04-25 12:47] LABS: THYROID STIMULATING HORMONE 58.71 uIU/mL (0.34-5.60)
== END 2023-04-25 09:26 | disposition home or self-care (01) ==
LOC: LAB.N 09:25
PROVIDERS: ATTEND Internal Medicine
DX: E03.9 Hypothyroidism, unspecified (principal)
CPT/HCPCS: 36415; 84439; 84443

== ENCOUNTER 2023-05-30 12:37 | Outpatient (CLI) | payer MEDICARE, OTHER | END 2023-05-30 12:38 | disposition home or self-care (01) | LOC: LAB.N 12:37 | DX: R56.9 Unspecified convulsions (principal) | CPT/HCPCS: 36415; 80185 ==

== ENCOUNTER 2023-07-04 10:03 | Outpatient (CLI) | payer MEDICARE, OTHER ==
--- NOTE | 2023-07-05 15:37 | Mammography Report ---
BILATERAL DIGITAL SCREENING MAMMOGRAM 3D/2D: 07/04/2023 CLINICAL: Routine screening. Family history of breast cancer. Comparison is made to exams dated: 11/29/2017 mammogram, 11/16/2015 mammogram, and 11/21/2014 mammogram - [facility]. There are scattered areas of fibroglandular density in both breasts (category b / 25%-50% glandular t issue). There is a focal asymmetry with grouped calcifications in the right breast at 11 o'clock anterior dep th. This is more prominent. No other significant masses, calcifications, or other findings are seen in either breast. IMPRESSION: INCOMPLETE: NEEDS ADDITIONAL IMAGING EVALUATION The focal asymmetry in the right breast has a differential diagnosis of a previous surgery and is ind eterminate. Magnification views as well as additional views with possible ultrasound are recommended . Based on the Tyrer Cuzick model (a risk assessment model) the patients lifetime risk is 3.4% and her 10 year risk is 0.0%. According to the ACR, ACS, and NCCN guidelines, an annual breast MRI exam martha g with mammogram is recommended if the patients lifetime risk is 20% or greater. This exam was interpreted at Station ID: [id number]. NOTE: For mammograms, a report in lay terms will be sent to the patient. Approximately 15% of breast malignancies will not be visualized mammographically. In the management of a palpable breast mass, a negative mammogram must not discourage biopsy of a clinically suspicious lesion. Electronically Signed By: Jas daniels/erendira:07/04/2023 16:28:22 ACR BI-RADS Category 0: Incomplete 3340F PARENCHYMAL PATTERN: (A) - The breast(s) demonstrate(s) scattered fibroglandular densities. BI-RADS CATEGORY: (0) - 0 Mammo and [place] [id number] Immediate follow-up LATERALITY: (R)
== END 2023-07-04 10:04 | disposition home or self-care (01) ==
LOC: DI.N 10:03
DX: Z12.31 Encounter for screening mammogram for malignant neoplasm of breast (principal); R92.8 Other abnormal and inconclusive findings on diagnostic imaging of breast; R92.323 Mammographic fibroglandular density, bilateral breasts; Z80.3 Family history of malignant neoplasm of breast

== ENCOUNTER 2023-07-16 12:31 | Emergency (ER) | payer MEDICARE, OTHER ==
[2023-07-16 12:57] VITALS: O2SAT 100
[2023-07-16 13:23] LABS: BILIRUBIN,URINE NEGATIVE (NEGATIVE); GLUCOSE, URINE (UA) NEGATIVE (NEGATIVE); KETONES,URINE (UA) NEGATIVE (NEGATIVE); LEUKOCYTE ESTERASE, URINE NEGATIVE (NEGATIVE); NITRITE,URINE NEGATIVE (NEGATIVE); OCCULT BLOOD,URINE NEGATIVE (NEGATIVE); PROTEIN,URINE NEGATIVE (NEGATIVE); UROBILINOGEN,URINE 0.2 (NORMAL) E.U./dL (NORMAL)
[2023-07-16 13:25] LABS: CLARITY,URINE CLEAR (CLEAR)
[2023-07-16 13:30] LABS: BASOPHILS % (AUTO) 0.4 %; EOSINOPHILS # (AUTO) 0.1 10^3/uL (0.0-0.7); EOSINOPHILS % (AUTO) 1.4 %; HCT - HEMATOCRIT 42.9 % (37.0-47.0); HGB - HEMOGLOBIN 13.4 g/dL (12.0-16.0); LYMPHOCYTES # (AUTO) 0.6 10^3/uL (1.5-3.5); LYMPHOCYTES % (AUTO) 8.8 %; MEAN CORPUSCULAR HEMOGLOBIN 29.5 pg (27.0-31.0); MEAN CORPUSCULAR HGB CONC 31.2 g/dL (32.0-36.0); MEAN CORPUSCULAR VOLUME 94.3 fL (81.0-99.0); MEAN PLATELET VOLUME 10.7 fL (7.9-10.8); MONOCYTES # (AUTO) 0.4 10^3/uL (0.0-1.0); MONOCYTES % (AUTO) 6.1 %; NEUTROPHILS % (AUTO) 83.2 %; PLT - PLATELET COUNT 174 10^3/uL (130-450); RED BLOOD COUNT 4.55 10^6/uL (4.20-5.40); RED CELL DISTRIBUTION WIDTH 13.3 % (12.0-15.0); WHITE BLOOD COUNT 7.2 x10^3/uL (4.8-10.8)
[2023-07-16 13:45] LABS: ALBUMIN 4.8 g/dL (3.2-5.5); ALBUMIN/GLOBULIN RATIO 2.3 (1.0-2.2); BILIRUBIN,TOTAL 0.8 mg/dL (0.2-1.0); CALCIUM 9.3 mg/dL (8.5-10.3); CREATININE 0.8 mg/dL (0.6-1.3); POTASSIUM 3.9 mmol/L (3.5-4.5); TOTAL PROTEIN 6.9 g/dL (6.4-8.9)
[2023-07-16] MEDS ORDERED: SODIUM CHLORIDE 0.9% 1,000 ML IV STA (14:30)
[2023-07-16] MEDS ORDERED: CEFPODOXIME PROXETIL 100 MG TABLET PO STA (14:33)
--- NOTE | 2023-07-16 15:20 | ED Physician Documentation ---
History of Present Illness - Stated complaint Stated Complaint: - Chief complaint Chief Complaint: General - History obtained from History obtained from: Patient, Family, Caregiver - History of Present Illness Timing: Today Pain level max: 0 Pain level now: 0 - Additonal information Additional information: Patient is an 82-year-old female brought in by her caregiver today for dysuria for 2 days. Took a home UTI test that was positive. No fevers. No chills. No abdominal pain. No vaginal bleeding or discharge. No itching. Feels similar to prior UTIs. The caregiver states that the patient's daughter is concerned about dehydration. Patient states that she has been drinking water and does not feel dehydrated. 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 No headaches. No trauma. No back pain. No numbness or tingling. No focal neurological deficits. Patient denies any falls or head strikes. Review of Systems Constitutional: denies: Fever, Chills GI: denies: Vomiting, Diarrhea Skin: denies: Rash Musculoskeletal: denies: Neck pain, Back pain Neurologic: denies: Focal weakness, Numbness, LOC PD PAST MEDICAL HISTORY - Past Medical History Past Medical History: Yes Cardiovascular: Murmur, Arrhythmia, Other Respiratory: None Neuro: Seizure disorder, Other Endocrine/Autoimmune: HyPOthyroidism GI: Other SECRET SERVICE AGENT: None : Other HEENT: Chronic vision loss, Macular degeneration, Chronic hearing loss, Other Psych: Depression Musculoskeletal: Osteoarthritis, Chronic back pain, Other Derm: Eczema - Past Surgical History Past Surgical History: Yes General: Colonoscopy, EGD, Other Ortho: Knee replacement, Carpal Tunnel surgery, Spine surgery, Other /SECRET SERVICE AGENT: section, Tubal ligation Neuro: Craniotomy, Other HEENT: Cataracts, Tonsil/Adenoidectomy, Other Derm: Skin cancer surgery - Present Medications Home Medications: Ambulatory Orders Medication Instructions Recorded Confirmed Levothyroxine [Synthroid] 75 mcg PO QDAC 01/06/13 07/16/23 atenoloL [Tenormin] 25 mg PO QPM 12/16/22 07/16/23 Cefpodoxime Proxetil [Vantin] 100 mg PO Q12H #14 tablet 07/16/23 Phenytoin Sodium Extended 30 mg PO DAILY 07/16/23 07/16/23 [Dilantin] - Allergies Allergies/Adverse Reactions: Allergies Allergy/AdvReac Type Severity Reaction Status Date / Time acetaminophen [From Vicodin] Allergy Severe Rash Verified 07/16/23 12:54 benzocaine Allergy Severe Respiratory Verified 07/16/23 12:54 carbamazepine [From Tegretol] Allergy Severe Respiratory Verified 07/16/23 12:54 codeine [Codeine] Allergy Severe Respiratory Verified 07/16/23 12:54 ephedrine [Ephedrine] Allergy Severe Respiratory Verified 07/16/23 12:54 hydrocodone bitartrate * Allergy Severe Respiratory Verified 07/16/23 12:54 [From Vicodin] lamotrigine [From Lamictal] Allergy Severe Respiratory Verified 07/16/23 12:54 oxycodone [Oxycodone] Allergy Severe Respiratory Verified 07/16/23 12:54 Penicillins Allergy Severe Rash Verified 07/16/23 12:54 Sulfa (Sulfonamide Allergy Severe Rash Verified 07/16/23 12:54 Antibiotics) baclofen Allergy Hallucinations, Verified 07/16/23 12:54 nausea ciprofloxacin [From Cipro] Allergy seizures Verified 07/16/23 12:54 iodine Allergy Rash Verified 07/16/23 12:54 mannitol [From Reclast] Allergy Unknown Verified 07/16/23 12:54 methadone Allergy psychotic Verified 07/16/23 12:54 break metrizamide Allergy Rash Verified 07/16/23 12:54 milk Allergy Unknown Verified 07/16/23 12:54 oxcarbazepine Allergy Rash Verified 07/16/23 12:54 promethazine Allergy Hallucinati Verified 07/16/23 12:54 ons shellfish derived Allergy GI upset Verified 07/16/23 12:54 vilazodone Allergy seizures Verified 07/16/23 12:54 water for injection,sterile Allergy Unknown Verified 07/16/23 12:54 [From Reclast] zoledronic acid Allergy Unknown Verified 07/16/23 12:54 [From Reclast] adhesive AdvReac Itching Verified 07/16/23 12:54 epinephrine AdvReac tachycardia Verified 07/16/23 12:54 and chest pain lorazepam [From Ativan] AdvReac Hallucinati Verified 07/16/23 12:54 ons - Social History Does the pt smoke?: No Smoking Status: Never smoker Does the pt drink ETOH?: No Does the pt have substance abuse?: No - Immunizations Immunizations are current?: Yes - POLST Patient has POLST: No PD ED PE NORMAL - Vitals Vital signs reviewed: Yes - General General: Alert and oriented X 3, No acute distress - HEENT HEENT: Atraumatic, PERRL, Moist mucous membranes - Neck Neck: Supple, no meningeal sign - Cardiac Cardiac: RRR, Strong equal pulses - Respiratory Respiratory: No respiratory distress, Clear bilaterally - Abdomen Abdomen: Soft, Non tender, Non distended - Back Back: No CVA TTP, No spinal TTP - Derm Derm: Warm and dry - Extremities Extremities: No edema, No calf tenderness / cord - Neuro Neuro: Alert and oriented X 3, legal instruments examiner 2-12 intact, No motor deficit, No sensory deficit, Normal speech Eye Opening: Spontaneous Motor: Obeys Commands Verbal: Oriented GCS Score: 15 - Psych Psych: Normal mood, Normal affect Results - Vitals Vitals: Vital Signs - 24 hr 07/16/23 07/16/23 07/16/23 12:48 12:54 14:54 Temperature 36.5 C 36.5 C 36.5 C Heart Rate 75 75 72 Respiratory 16 16 16 Rate Blood Pressure 140/74 H 140/74 H 130/72 O2 Saturation 100 100 100 07/16/23 16:00 Temperature 36.5 C Heart Rate 70 Respiratory 16 Rate Blood Pressure 128/72 O2 Saturation 100 Oxygen O2 Source Room air - Labs Labs: Laboratory Tests 07/16/23 07/16/23 07/16/23 13:07 13:25 13:25 WBC 7.2 RBC 4.55 Hgb 13.4 Hct 42.9 MCV 94.3 MCH 29.5 MCHC 31.2 L RDW 13.3 Plt Count 174 MPV 10.7 Neut # (Auto) 6.0 Lymph # (Auto) 0.6 L [place] # (Auto) 0.4 Eos # (Auto) 0.1 Baso # (Auto) 0.0 Absolute Nucleated RBC 0.00 Nucleated RBC % 0.0 Sodium 136 Potassium 3.9 Chloride 102 Carbon Dioxide 27 Anion Gap 7.0 BUN 14 Creatinine 0.8 Estimated GFR (MDRD) 69 L Glucose 102 Calcium 9.3 Total Bilirubin 0.8 AST 23 ALT 17 Alkaline Phosphatase 64 Total Protein 6.9 Albumin 4.8 Globulin 2.1 Albumin/Globulin Ratio 2.3 H Lipase 41 Urine Color YELLOW Urine Clarity CLEAR Urine pH 6.0 Ur Specific Gray 1.015 Urine Protein NEGATIVE Urine Glucose (UA) NEGATIVE Urine Ketones NEGATIVE Urine Occult Blood NEGATIVE Urine Nitrite NEGATIVE Urine Bilirubin NEGATIVE Urine Urobilinogen 0.2 (NORMAL) Ur Leukocyte Esterase NEGATIVE Ur Microscopic Review NOT INDICATED Urine Culture Comments NOT INDICATED PD Medical Decision Making - ED course Complexity details: reviewed results, re-evaluated patient, considered differential, d/w patient, d/w family ED course: Patient is well-appearing, nontoxic. Afebrile. Her urinalysis is negative here but she did urinate just prior to giving the sample and did have a positive UTI test at home, given her symptoms of dysuria and the positive home test, we will treat for UTI. The patient's daughter did call on the phone and I spoke with her. She is concerned that the patient is more confused than usual and is co ncerned about dehydration. The patient is agreeable to an IV and IV fluids were given. No complications. Patient ambulating without difficulty, answers questions appropriately. No focal neurological deficits. No evidence of head trauma or falls. No indication for emergent head CT at this time. GCS 15. Patient counseled regarding signs and symptoms for which I believe and urgent re-evaluation would be necessary. Patient with good understanding of and agreement to plan and is comfortable going home at this time This document was made in part using voice recognition software. While efforts are made to proofread this document, sound alike and grammatical errors may occur. Departure - Departure Disposition: 01 Home, Self Care Clinical Impression: Dysuria, Dehydration UTI (urinary tract infection) Qualifiers: Urinary tract infection type: acute cystitis Hematuria presence: without hematuria Qualified Code(s): N30.00 - Acute cystitis without hematuria Condition: Good Instructions: ED Dehydration, ED UTI Cystitis Female Follow-Up: Loc Covarrubias MD [Primary Care Provider] - Within 1 week Prescriptions: Cefpodoxime Proxetil [Vantin] 100 mg PO Q12H #14 tablet Comments: Your prescription was sent to [email or web address] in [place]. Please take all antibiotics until gone. Please make sure you are drinking plenty of fluids at home. Please return if you worsen. Forms: PCP List
[2023-07-16 16:15] VITALS: BP 128/72
== END 2023-07-16 16:45 | disposition home or self-care (01) ==
LOC: ED 12:31
DX: N30.00 Acute cystitis without hematuria (principal); E86.0 Dehydration
CPT/HCPCS: 36415; 80053; 81003; 83690; 85025; 96360; 96361; 99283; A9270; 81001; 87086

== ENCOUNTER 2023-07-25 10:17 | Outpatient (CLI) | payer MEDICARE, OTHER ==
--- NOTE | 2023-07-26 12:24 | Mammography Report ---
UNILATERAL RIGHT DIGITAL DIAGNOSTIC MAMMOGRAM 3D/2D WITH MAGNIFICATION: 07/25/2023 CLINICAL: Patient returns for magnification views of microcalcifications in the right breast. Comparison is made to exams dated: 11/29/2017 mammogram and 07/04/2023 mammogram - [facility]. There are scattered areas of fibroglandular density in the right breast (category b / 25%-50% glandul ar tissue). There are multiple calcifications in the anterior right breast. Many are round, lucent centered, or d ystrophic, however a few more posterior are fine, possibly linear and branching. No visible focal as ymmetry in the given views. No other significant masses or calcifications are seen in the breast. IMPRESSION: SUSPICIOUS OF MALIGNANCY The linear, fine calcifications in the right breast are suspicious of malignancy. A stereotactic bio psy is recommended. Findings and recommendations were discussed with the patient in person by Dr. Davy Mead at time of ex am. Based on the Tyrer Cuzick model (a risk assessment model) the patients lifetime risk is 3.4% and her 10 year risk is 0.0%. According to the ACR, ACS, and NCCN guidelines, an annual breast MRI exam martha g with mammogram is recommended if the patients lifetime risk is 20% or greater. This exam was interpreted at Station ID: [id number]. NOTE: For mammograms, a report in lay terms will be sent to the patient. Approximately 15% of breast malignancies will not be visualized mammographically. In the management of a palpable breast mass, a negative mammogram must not discourage biopsy of a clinically suspicious lesion. Electronically Signed By: Gracy ruth/:07/25/2023 10:54:50 ACR BI-RADS Category 4: Suspicious abnormality 3344F PARENCHYMAL PATTERN: (A) - The breast(s) demonstrate(s) scattered fibroglandular densities. BI-RADS CATEGORY: (4) - 4 Biopsy [id number] Immediate follow-up LATERALITY: (R)
== END 2023-07-25 10:18 | disposition home or self-care (01) ==
LOC: DI 10:17
PROVIDERS: ATTEND Internal Medicine
DX: R92.1 Mammographic calcification found on diagnostic imaging of breast (principal)

== ENCOUNTER 2023-08-18 10:47 | Outpatient (CLI) | payer MEDICARE, OTHER ==
[2023-08-18 17:55] LABS: CHOL/HDL RATIO 3.3 (<4.4); CHOLESTEROL 198 mg/dL; HDL CHOLESTEROL 60 mg/dL; LDL CHOLESTEROL,CALCULATED 121 mg/dL; TRIGLYCERIDES 84 mg/dL (48-352); VLDL CHOLESTEROL 17 mg/dL
[2023-08-18 18:33] LABS: THYROID STIMULATING HORMONE 1.29 uIU/mL (0.34-5.60)
== END 2023-08-18 10:48 | disposition home or self-care (01) ==
LOC: LAB.N 10:47
PROVIDERS: ATTEND Internal Medicine
DX: E03.9 Hypothyroidism, unspecified (principal); Z13.220 Encounter for screening for lipoid disorders
CPT/HCPCS: 36415; 80061; 83721; 84439; 84443

== ENCOUNTER 2023-08-22 08:16 | Outpatient (CLI) | payer MEDICARE, OTHER ==
[2023-08-22] MEDS ORDERED: LIDOCAINE-MPF 1% 5 ML VIAL ONE (08:22)
--- NOTE | 2023-08-31 11:49 | Mammography Report ---
UNILATERAL RIGHT DIGITAL DIAGNOSTIC MAMMOGRAM 3D/2D: 08/22/2023 CLINICAL: Right stereotactic biopsy attempt. Comparison is made to exams dated: 07/25/2023 mammogram, 07/04/2023 mammogram, 11/29/2017 mammogram, and 11/16/2015 mammogram - [facility]. There are scattered areas of fibroglandular density in the right breast (category b / 25%-50% glandul ar tissue). The previously described multiple linear fine dystrophic pleomorphic punctate calcifications in the r ight breast superior lateral quadrant middle depth could not be confidently reproduced to target for stereotactic biopsy. There are persistent regional punctate, coarse, and fine calcifications but not definitely in a linear pattern. No other significant masses or calcifications are seen in the breast. IMPRESSION: SUSPICIOUS OF MALIGNANCY The previously multiple linear calcifications in the right breast could not be definitively visualize d to be in a linear distribution to target for biopsy. The stereotactic biopsy was cancelled. The gopi cifications appear to be in a more regional distribution. A follow-up right mammogram in 3 months is recommended to demonstrate stability. Findings and recommendations were discussed with the patient during today's examination. A breast MR I was discussed but the patient is not able to have MRI evaluation. Based on the Tyrer Cuzick model (a risk assessment model) the patients lifetime risk is 3.4% and her 10 year risk is 0.0%. According to the ACR, ACS, and NCCN guidelines, an annual breast MRI exam along with mammogram is recommended if the patients lifetime risk is 20% or greater. This exam was interpreted at Station ID: [id number]. NOTE: For mammograms, a report in lay terms will be sent to the patient. Approximately 15% of breast malignancies will not be visualized mammographically. In the management of a palpable breast mass, a negative mammogram must not discourage biopsy of a clinically suspicious lesion. Electronically Signed By: Nate Lagos M.D. aty/:08/30/2023 16:39:32 ACR BI-RADS Category 4: Suspicious abnormality 3344F PARENCHYMAL PATTERN: (A) - The breast(s) demonstrate(s) scattered fibroglandular densities. BI-RADS CATEGORY: (4) - 4 Mammogram [id number] 3 month follow-up LATERALITY: (R)
== END 2023-08-22 08:17 | disposition home or self-care (01) ==
LOC: DI 08:16
PROVIDERS: ATTEND Internal Medicine
DX: R92.1 Mammographic calcification found on diagnostic imaging of breast (principal)

== ENCOUNTER 2023-09-06 08:00 | Outpatient (CLI) | payer MEDICARE, OTHER ==
[2023-09-06 13:08] LABS: FECAL OCCULT BLOOD (FIT) NEGATIVE (NEGATIVE)
== END 2023-09-06 23:59 | disposition home or self-care (01) ==
LOC: LAB.N 08:00
PROVIDERS: ATTEND Internal Medicine
DX: Z12.11 Encounter for screening for malignant neoplasm of colon (principal)
CPT/HCPCS: 82274

== ENCOUNTER 2023-10-26 13:07 | Emergency (ER) | payer MEDICARE, OTHER ==
[2023-10-26 13:36] VITALS: O2SAT 98
--- NOTE | 2023-10-26 15:24 | XRAY Report ---
PROCEDURE: Hip w/Pelvis 2-3V RT INDICATIONS: fall/pain TECHNIQUE: 3 views of the hip were acquired. COMPARISON: None. FINDINGS: Bones: No fractures or dislocations. No suspicious bony lesions. Soft tissues: No suspicious soft tissue calcifications or masses. IMPRESSION: No acute bony abnormality. If there remains a high clinical concern for fracture, including inability to bear weight, consider cross-sectional imaging to exclude an occult fracture. Reviewed by: Lc Glass MD on 10/26/2023 3:23 PM PDT Approved by: Lc Glass MD on 10/26/2023 3:23 PM PDT Station ID: [id number]
--- NOTE | 2023-10-26 16:05 | ED Physician Documentation ---
PD HPI LOWER EXT INJURY - Stated complaint Stated Complaint: RT LEG PX,SHARP PX - Chief complaint Chief Complaint: Trauma Ext - Additional information Additional information: 82-year-old female with history of osteoporosis presents emergency department for right thigh pain.Patient says that she was standing on a chair and fell onto her left side 2 days ago. She has been having sharp pain onto the left thigh that shoots down. She is able to ambulate without any difficulty no weakness says that given her history of osteoporosis she is very worried and want to make sure that she does not have any fractures. She did not hit her head and she is not on any blood thinners and she said no neurological complaints or concerns since the incident. PD PAST MEDICAL HISTORY - Past Medical History Past Medical History: Yes Cardiovascular: Murmur, Arrhythmia, Other Respiratory: None Neuro: Seizure disorder, Other Endocrine/Autoimmune: HyPOthyroidism GI: Other REUSE TECHNICIAN: None : Other HEENT: Chronic vision loss, Macular degeneration, Chronic hearing loss, Other Psych: Depression Musculoskeletal: Osteoarthritis, Chronic back pain, Other Derm: Eczema - Past Surgical History Past Surgical History: Yes General: Colonoscopy, EGD, Other Ortho: Knee replacement, Carpal Tunnel surgery, Spine surgery, Other /REUSE TECHNICIAN: section, Tubal ligation Neuro: Craniotomy, Other HEENT: Cataracts, Tonsil/Adenoidectomy, Other Derm: Skin cancer surgery - Present Medications Home Medications: Ambulatory Orders Medication Instructions Recorded Confirmed Levothyroxine [Synthroid] 75 mcg PO QDAC 01/06/13 07/16/23 atenoloL [Tenormin] 25 mg PO QPM 12/16/22 07/16/23 Cefpodoxime Proxetil [Vantin] 100 mg PO Q12H #14 tablet 07/16/23 Phenytoin Sodium Extended 30 mg PO DAILY 07/16/23 07/16/23 [Dilantin] - Allergies Allergies/Adverse Reactions: Allergies Allergy/AdvReac Type Severity Reaction Status Date / Time acetaminophen [From Vicodin] Allergy Severe Rash Verified 10/26/23 13:29 benzocaine Allergy Severe Respiratory Verified 10/26/23 13:29 carbamazepine [From Tegretol] Allergy Severe Respiratory Verified 10/26/23 13:29 codeine [Codeine] Allergy Severe Respiratory Verified 10/26/23 13:29 ephedrine [Ephedrine] Allergy Severe Respiratory Verified 10/26/23 13:29 hydrocodone bitartrate * Allergy Severe Respiratory Verified 10/26/23 13:29 [From Vicodin] lamotrigine [From Lamictal] Allergy Severe Respiratory Verified 10/26/23 13:29 oxycodone [Oxycodone] Allergy Severe Respiratory Verified 10/26/23 13:29 Penicillins Allergy Severe Rash Verified 10/26/23 13:29 Sulfa (Sulfonamide Allergy Severe Rash Verified 10/26/23 13:29 Antibiotics) baclofen Allergy Hallucinations, Verified 10/26/23 13:29 nausea ciprofloxacin [From Cipro] Allergy seizures Verified 10/26/23 13:29 iodine Allergy Rash Verified 10/26/23 13:29 mannitol [From Reclast] Allergy Unknown Verified 10/26/23 13:29 methadone Allergy psychotic Verified 10/26/23 13:29 break metrizamide Allergy Rash Verified 10/26/23 13:29 milk Allergy Unknown Verified 10/26/23 13:29 oxcarbazepine Allergy Rash Verified 10/26/23 13:29 promethazine Allergy Hallucinati Verified 10/26/23 13:29 ons shellfish derived Allergy GI upset Verified 10/26/23 13:29 vilazodone Allergy seizures Verified 10/26/23 13:29 water for injection,sterile Allergy Unknown Verified 10/26/23 13:29 [From Reclast] zoledronic acid Allergy Unknown Verified 10/26/23 13:29 [From Reclast] adhesive AdvReac Itching Verified 10/26/23 13:29 epinephrine AdvReac tachycardia Verified 10/26/23 13:29 and chest pain lorazepam [From Ativan] AdvReac Hallucinati Verified 10/26/23 13:29 ons - Social History Does the pt smoke?: No Smoking Status: Never smoker Does the pt drink ETOH?: No Does the pt have substance abuse?: No - Immunizations Immunizations are current?: Yes - POLST Patient has POLST: No PD ED PE NORMAL - Vitals Vital signs reviewed: Yes - General General: Alert and oriented X 3, No acute distress, Well developed/nourished - HEENT HEENT: Atraumatic, PERRL, EOMI - Neck Neck: No bony TTP - Back Back: No spinal TTP - Derm Derm: Normal color, Warm and dry, No rash - Free text exam Free text exam: Right lower extremity. No tenderness with palpation to the right hip region. Patient able to flex and extend her right hip without any tenderness. Tenderness to the right to lateral upper portion of her thigh. No obvious hematoma no bruising or swelling visualized. No erythema. No skin changes. Patient has full range of motion to knee with no tenderness. Results - Vitals Vitals: Vital Signs - 24 hr 10/26/23 10/26/23 13:21 16:45 Temperature 36.3 C L Heart Rate 63 60 Respiratory 16 18 Rate Blood Pressure 135/87 H 130/85 H O2 Saturation 98 98 Oxygen O2 Source Room air - Rads (name of study) 3V X-ray hip with pelvis right Relevant Findings:: Final report received, EMP independent interpretation of test, Other (No bony fractures or acute abnormalities.) PD Medical Decision Making - ED course ED course: 82-year-old female presents emergency department for right upper thigh pain. Three-view plain films are complete of the right hip and pelvis no acute abnormalities or fractures visualized. Patient says that it is pinpoint at 1 sensitive spot to the right upper thigh region. I believe that the pain she is experiencing is due to a contusion. Patient was told that if symptoms persist after 7 to 10 days to follow-up with primary care provider for either repeat imaging or more advanced imaging and further evaluation. She is able to ambulate without any difficulty no weakness and pain is well-controlled at home with Tylenol ibuprofen. Patient understand return precautions all questions answered safe for discharge. Departure - Departure Disposition: 01 Home, Self Care Clinical Impression: Contusion of right thigh Qualifiers: Encounter type: initial encounter Qualified Code(s): S70.11XA - Contusion of right thigh, initial encounter Instructions: ED Contusion Lower Ext Comments: We have completed X-rays of your right hip/pelvis region and your right femur and we do not see any fracture or other acute findings. You can continue to ambulate on it, ice to the area for 20 min at a time. Keep your right lower extremity elevated to help with any inflammation especially at nighttime when you are sleeping. Follow-up with your primary care provider as needed if after 7 to 10 days your pain is gotten any worse you can consider doing more advanced imaging such as a CT if needed. Forms: PCP List Discharge Date/Time: 10/26/23 16:45
[2023-10-26 16:48] VITALS: BP 130/85
== END 2023-10-26 16:45 | disposition home or self-care (01) ==
LOC: ED 13:07
DX: S70.11XA Contusion of right thigh, initial encounter (principal); W07.XXXA Fall from chair, initial encounter
CPT/HCPCS: 99283

== ENCOUNTER 2023-11-23 09:38 | Outpatient (CLI) | payer MEDICARE, OTHER ==
--- NOTE | 2023-11-24 08:38 | Mammography Report ---
UNILATERAL RIGHT DIGITAL DIAGNOSTIC MAMMOGRAM 3D/2D WITH MAGNIFICATION: 11/23/2023 CLINICAL: 3 month follow up of right breast calcifications. Comparison is made to exams dated: 08/22/2023 mammogram, 07/25/2023 mammogram, 07/04/2023 mammogram, mammogram, 11/16/2015 mammogram, and 11/21/2014 mammogram - [facility]. There are scattered areas of fibroglandular density in the right breast (category b / 25%-50% glandul ar tissue). There are multiple segmental fine dystrophic pleomorphic punctate calcifications in the right breast superior lateral quadrant middle depth. These are questionably more prominent, but not definitely in creased in number. No other significant masses or calcifications are seen in the breast. IMPRESSION: PROBABLY BENIGN The calcifications in the right breast are probably benign. A follow-up right mammogram in 3 months is recommended because the patient cannot have a breast MRI d ue to implant. Findings and recommendations were conveyed to the patient at time of exam. Based on the Tyrer Cuzick model (a risk assessment model) the patient's lifetime risk is 1.6% and her 10 year risk is 0.0%. According to the ACR, ACS, and NCCN guidelines, an annual breast MRI exam martha g with mammogram is recommended if the patient's lifetime risk is 20% or greater. This exam was interpreted at Station ID: [id number]. NOTE: For mammograms, a report in lay terms will be sent to the patient. Approximately 15% of breast malignancies will not be visualized mammographically. In the management of a palpable breast mass, a negative mammogram must not discourage biopsy of a clinically suspicious lesion. Electronically Signed By: Gracy ruth/:11/23/2023 10:55:58 ACR BI-RADS Category 3: Probably benign 3343F PARENCHYMAL PATTERN: (A) - The breast(s) demonstrate(s) scattered fibroglandular densities. BI-RADS CATEGORY: (3) - 3 Mammogram [id number] 3 month follow-up LATERALITY: (R)
== END 2023-11-23 09:39 | disposition home or self-care (01) ==
LOC: DI 09:38
PROVIDERS: ATTEND Internal Medicine
DX: R92.1 Mammographic calcification found on diagnostic imaging of breast (principal); R92.321 Mammographic fibroglandular density, right breast

== ENCOUNTER 2024-01-03 09:56 | Outpatient (CLI) | payer MEDICARE, OTHER ==
[2024-01-03 11:57] LABS: ALBUMIN 4.6 g/dL (3.2-5.5); ALBUMIN/GLOBULIN RATIO 1.9 (1.0-2.2); BILIRUBIN,TOTAL 0.7 mg/dL (0.2-1.0); CALCIUM 9.7 mg/dL (8.5-10.3); CREATININE 0.9 mg/dL (0.6-1.3); POTASSIUM 4.3 mmol/L (3.5-4.5)
== END 2024-01-03 09:57 | disposition home or self-care (01) ==
LOC: LAB.N 09:56
PROVIDERS: ATTEND Psychiatry & Neurology Neurology
DX: R56.9 Unspecified convulsions (principal)
CPT/HCPCS: 36415; 80053; 80185

== ENCOUNTER 2024-02-03 09:26 | Outpatient (CLI) | payer MEDICARE, OTHER ==
--- NOTE | 2024-02-03 17:08 | Ultrasound Report ---
PROCEDURE: Aorta Duplex Complete INDICATIONS: PULSATILE ABD MASS TECHNIQUE: PROCEDURE: Aorta Duplex Complete INDICATIONS: PULSATILE ABD MASS TECHNIQUE: Color and pulse Doppler interrogation was performed of the aorta and iliac arterial systems, with verito ge documentation. COMPARISON: None. FINDINGS: Aorta: 47 cm/sec, with triphasic flow. The aorta measures 2.0 cm proximally, 1.6 cm mid, and 1.6 cm distally Right lower extremity: Proximal common iliac artery: 64cm/sec, with triphasic flow. Distal common iliac artery: 71 cm/sec, with triphasic flow. Proximal external iliac artery: 139 cm/sec, with triphasic flow. Distal external iliac artery: 93 cm/sec, with triphasic flow. Common femoral artery: 121 cm/sec, with triphasic flow. Bender-scale imaging description: Minimal atheromatous plaque. No ectasia or aneurysm. Left lower extremity: Proximal common iliac artery: 63 cm/sec, with biphasic flow. Distal common iliac artery: 93 cm/sec, with triphasic flow. Proximal external iliac artery: 110 cm/sec, with triphasic flow. Distal external iliac artery: 101 cm/sec, with triphasic flow. Common femoral artery: 76 cm/sec, with triphasic flow. Bender-scale imaging description: Trace atheromatous plaque. No aneurysmal dilatation or ectasia. IMPRESSION: 1. No aortic or iliac ectasia or aneurysmal dilatation. 2. No hemodynamically significant stenosis. Reviewed by: Blanca Skinner MD on 02/03/2024 5:07 PM PDT Approved by: Blanca Skinner MD on 02/03/2024 5:07 PM PDT Station ID: [id number]
== END 2024-02-03 09:27 | disposition home or self-care (01) ==
LOC: DI 09:26
PROVIDERS: ATTEND Internal Medicine
DX: R19.00 Intra-abdominal and pelvic swelling, mass and lump, unspecified site (principal)
CPT/HCPCS: 93978

== ENCOUNTER 2024-04-05 13:07 | Outpatient (CLI) | payer MEDICARE, OTHER ==
--- NOTE | 2024-04-08 08:50 | Mammography Report ---
UNILATERAL RIGHT DIGITAL DIAGNOSTIC MAMMOGRAM 3D/2D WITH MAGNIFICATION: 04/05/2024 CLINICAL: 3-month follow up of right breast calcifications. Comparison is made to exams dated: 11/23/2023 mammogram, 08/22/2023 mammogram, 07/25/2023 mammogram, mammogram, 11/29/2017 mammogram, and 11/16/2015 mammogram - [facility]. There are scattered areas of fibroglandular density in the right breast (category b / 25%-50% glandul ar tissue). Redemonstration of previously described multiple segmental fine coarse dystrophic heterogeneous punct ate calcifications in the right breast superior lateral quadrant middle depth. These appear slightly more prominent and increased in number. No other significant masses or calcifications are seen in the breast. IMPRESSION: INCOMPLETE: NEEDS ADDITIONAL IMAGING EVALUATION The multiple segmental fine coarse dystrophic heterogeneous punctate calcifications in the right sylvie st appear slightly more prominent and numerous. The previously described linear calcifications withi n these segmental calcifications are again not definitively seen. Findings are indeterminate. An ultr asound is recommended for further evaluation and is scheduled to immediately follow this examination. Based on the Tyrer Cuzick model (a risk assessment model) the patient's lifetime risk is 1.6% and her 10 year risk is 0.0%. According to the ACR, ACS, and NCCN guidelines, an annual breast MRI exam martha g with mammogram is recommended if the patient's lifetime risk is 20% or greater. This exam was interpreted at Station ID: [id number]. NOTE: For mammograms, a report in lay terms will be sent to the patient. Approximately 15% of breast malignancies will not be visualized mammographically. In the management of a palpable breast mass, a negative mammogram must not discourage biopsy of a clinically suspicious lesion. Electronically Signed By: Nate Lagos M.D. aty/:04/05/2024 17:33:35 ACR BI-RADS Category 0: Incomplete 3340F PARENCHYMAL PATTERN: (A) - The breast(s) demonstrate(s) scattered fibroglandular densities. BI-RADS CATEGORY: (0) - 0 Ultrasound [id number] Immediate follow-up LATERALITY: (R)
--- NOTE | 2024-04-08 08:51 | Ultrasound Report ---
LIMITED ULTRASOUND OF RIGHT BREAST: 04/05/2024 CLINICAL: Patient returns for 3 month follow up on right breast calcifications. Comparison is made to exams dated: 04/05/2024 mammogram, 11/23/2023 mammogram, 08/22/2023 mammogram, 07/2023 mammogram, 07/04/2023 mammogram, and 11/29/2017 mammogram - [facility]. Color flow and real-time ultrasound of the right breast upper outer quadrant were performed. Bender sc mona images of the real-time examination were reviewed. No significant abnormalities were seen sonographically in the right breast. No sonographic findings to correlate with the described multiple segmental fine coarse dystrophic heterogeneous punctate calc ifications in the right breast superior lateral quadrant middle depth. IMPRESSION: SUSPICIOUS OF MALIGNANCY No sonographic correlate seen for described multiple segmental fine coarse dystrophic heterogeneous a nd punctate calcifications in the right breast superior lateral quadrant middle depth which have demo nstrated mild interval increase in prominence and number. These are suspicious for malignancy and dawson reotactic guided breast biopsy of the calcifications is recommended with sampling of the anterior and posterior margins of these segmental calcifications. Findings and recommendations were discussed with the patient by Dr. Lagos over the telephone during toda y's examination. This exam was interpreted at Station ID: [id number]. Electronically Signed By: Nate Lagos M.D. aty/:04/05/2024 17:37:36 Ultrasound BI-RADS: 4 Suspicious for malignancy BI-RADS CATEGORY: (4) - 4 Biopsy [id number] Immediate follow-up LATERALITY: (R)
== END 2024-04-05 13:08 | disposition home or self-care (01) ==
LOC: DI 13:07
PROVIDERS: ATTEND Internal Medicine
DX: R92.1 Mammographic calcification found on diagnostic imaging of breast (principal); R92.321 Mammographic fibroglandular density, right breast

== ENCOUNTER 2024-04-16 09:24 | Outpatient (CLI) | payer MEDICARE, OTHER ==
[2024-04-16 13:06] LABS: THYROID STIMULATING HORMONE 3.21 uIU/mL (0.34-5.60)
== END 2024-04-16 09:25 | disposition home or self-care (01) ==
LOC: LAB.N 09:24
PROVIDERS: ATTEND Internal Medicine
DX: E03.9 Hypothyroidism, unspecified (principal)
CPT/HCPCS: 36415; 84439; 84443

== ENCOUNTER 2024-04-20 11:43 | Outpatient (CLI) | payer MEDICARE, OTHER ==
--- NOTE | 2024-04-20 19:26 | XRAY Report ---
PROCEDURE: Thoracic Spine 3V INDICATIONS: BACK PAIN THORACIC REGION TECHNIQUE: 3 views of the thoracic spine were acquired. COMPARISON: CT chest 08/03/2021 FINDINGS: Bones: No fractures or dislocations. No suspicious bony lesions. 12 pairs of ribs are noted, and a ppear intact where visualized. Multilevel degenerative disc space narrowing. Multilevel anterior ost eophytes are present. Soft tissues: No paravertebral stripe thickening. IMPRESSION: No acute bony abnormality. Multilevel degenerative change. Reviewed by: Meka Back MD on 04/20/2024 7:25 PM PDT Approved by: Meka Back MD on 04/20/2024 7:25 PM PDT Station ID: [id number]
== END 2024-04-20 11:44 | disposition home or self-care (01) ==
LOC: DI 11:43
PROVIDERS: ATTEND Internal Medicine
DX: M47.814 Spondylosis without myelopathy or radiculopathy, thoracic region (principal)

== ENCOUNTER 2024-04-29 09:35 | Outpatient (CLI) | payer MEDICARE, OTHER ==
[2024-04-29] MEDS ORDERED: LIDOCAINE 1%-EPI 1:100000 20 ML MDV ONE (10:04)
[2024-04-29] MEDS ORDERED: LIDOCAINE-MPF 1% 5 ML VIAL ONE (10:04)
[2024-04-29] MEDS: LIDOCAINE 1%-EPI 1:100000 20 ML MDV SUBQ ONE (11:38)
[2024-04-29] MEDS: LIDOCAINE-MPF 1% 5 ML VIAL TD ONE (11:39)
--- NOTE | 2024-05-01 15:42 | Mammography Report ---
STEREOTACTIC GUIDED BIOPSY RIGHT BREAST WITH MARKING DEVICE INSERTED- - RIGHT BREAST POST-PROCEDURE I MAGING FOR MARKER PLACEMENT: 04/29/2024 CLINICAL: Right breast stereotactic biopsy of breast calcifications. Post clip placement imaging. Comparison mammogram A stereotactic guided biopsy was performed for the area of calcifications located in the right breast upper outer quadrant at middle depth. The skin was prepped in the usual manner. Local anesthetic w as administered to the access site. A skin pasha was made in the breast. The abnormality was approac hed from the superior spect. A 9 gauge biopsy needle was placed adjacent to the abnormality under co mputer guidance and confirmatory stereotactic mammography images were obtained to document needle kalen cement. Once the needle was documented to be in the correct location, ten specimens were obtained us ing Siemens upright tomosynthesis biopsy unit. The patient received additional local anesthetic duri ng the procedure. A clip was inserted into the biopsy cavity. A sterile dressing was applied to the access site. Post procedure imaging demonstrates the biopsy clip is approximately 3 cm laterally di splaced from the biopsy cavity. Residual calcifications are present. Specimen radiograph confirms the presence of targeted calcifications. The specimens were sent to the laboratory for pathological analysis. IMPRESSION: STEREOTACTIC GUIDED BIOPSY MALIGNANT Stereotactic guided biopsy of right breast upper outer quadrant calcifications was successful. Pathology demonstrate ductal carcinoma in situ. Pathology results are concordant with imaging finding s. A surgical/oncologic consultation is recommended. This exam was interpreted at Station ID: [id number]. Siobhan Sanchez M.D., Ph.D. Marco Antonio Osborne M.D. ,slc/:05/01/2024 13:22:15 BI-RADS CATEGORY: () - Unspecified - other recall n/a LATERALITY: (B)
== END 2024-04-29 09:36 | disposition home or self-care (01) ==
LOC: DI 09:35
PROVIDERS: ATTEND Internal Medicine
DX: D05.11 Intraductal carcinoma in situ of right breast (principal)
CPT/HCPCS: 19081